=== PATIENT | female | born 1970 ===

== ENCOUNTER 2016-10-23 21:04 | Inpatient (IN) ==
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
[2016-10-23] MEDS ORDERED: ONDANSETRON 4 MG/2 ML VIAL IV STA (21:44)
[2016-10-23] MEDS ORDERED: METOCLOPRAMIDE 10 MG/2 ML VIAL IV STA (21:44)
[2016-10-23 22:01] LABS: Basophils % 0.2 % (0.0-0.8); Hematocrit 27.5 VOL% (35.7-47.0); Immature Granulocytes % 0.6 %; Immature Granulocytes Absolute 0.14 #; Lymphocytes # 0.5 10*3/uL (1.4-4.0); Lymphocytes % 2.3 % (21.3-54.2); Mean Corpuscular HGB Conc 36.4 GM/DL (32-36); Mean Corpuscular Hemoglobin 32 PG (27-34); Mean Platelet Volume 11.8 FL (9.6-12.0); Monocytes # 1.5 10*3/uL (0.11-0.8); NRBC # 0.02 10*3/uL; Neutrophils # 19.5 10*3/uL (1.4-7.4); Neutrophils % 89.9 % (38.7-73.9); Red Blood Count 3.16 MC/CUMM (3.8-5.5); Red Cell Distribution Width 12.1 % (9.3-17.3); White Blood Count 21.7 T/CUMM (4-12)
[2016-10-23 22:06] LABS: Platelet Count 72 T/CUMM (130-400)
[2016-10-23] MEDS ORDERED: ONDANSETRON 4 MG/2 ML VIAL ONE (22:08)
[2016-10-23] MEDS ORDERED: METOCLOPRAMIDE 10 MG/2 ML VIAL ONE (22:08)
[2016-10-23 22:17] LABS: PT Patient Result 10.7 SECS
[2016-10-23 22:31] LABS: Alanine Aminotransferase 28 U/L (13-56); Alkaline Phosphatase 111 U/L (45-117); Aspartate Amino Transferase 36 U/L (0-37); Blood Urea Nitrogen 68 MG/DL (7-18); Calcium 6.8 MG/DL (8.5-10.1); Glucose 343 MG/DL (74-106); Osmolality,Calculated 291.9 MOS/KG (273-304); Potassium 2.9 MMOL/L (3.5-5.1); Sodium 129 MMOL/L (136-145)
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
[2016-10-23] MEDS ORDERED: GLUCAGON 1 MG VIAL IM PRN (23:27)
[2016-10-23] MEDS ORDERED: DEXTROSE 50% 25 GM/50 ML SYRINGE IV PRN (23:27)
[2016-10-24] MEDS ORDERED: POTASSIUM CHLORIDE RIDER 20 MEQ in PREMIX 1 EACH IV ONE (00:48)
[2016-10-24] MEDS: ACETAMINOPHEN 325 MG TABLET PO PRN ×2 (01:25→09:55)
[2016-10-24] MEDS: POTASSIUM CHLORIDE RIDER 10 MEQ in PREMIX 1 EACH IV PRN ×5 (01:26→05:47)
[2016-10-24] MEDS: PIPERACILLIN/TAZOBACTAM 3,375 MG in SODIUM CHLORIDE 0.9% 100 ML IV SCH ×2 (01:26→13:00)
[2016-10-24] MEDS: POTASSIUM CHLORIDE RIDER 10 MEQ in PREMIX 1 EACH IV SCH (02:19)
[2016-10-24 03:38] LABS: Giant Platelets Few; Lymphocytes 4 % (20-55); Platelet Estimate Decreased; Segmented Neutrophils 93 % (50-85); Total Cells Counted 100
[2016-10-24] MEDS ORDERED: PIPERACILLIN/TAZOBACTAM 2,250 MG in SODIUM CHLORIDE 0.9% 100 ML IV SCH (05:00)
[2016-10-24 05:46] LABS: Basophils % 0.1 % (0.0-0.8); Hematocrit 25.6 VOL% (35.7-47.0); Hemoglobin 9.2 GM/DL (12.0-16.0); Lymphocytes # 0.6 10*3/uL (1.4-4.0); Mean Corpuscular HGB Conc 35.9 GM/DL (32-36); Mean Corpuscular Hemoglobin 31 PG (27-34); Mean Corpuscular Volume 87.4 FL (87-102); Mean Platelet Volume 11.9 FL (9.6-12.0); Monocytes % 9.6 % (1.7-12.7); Neutrophils # 17.7 10*3/uL (1.4-7.4); Neutrophils % 86.3 % (38.7-73.9); Red Blood Count 2.93 MC/CUMM (3.8-5.5); Red Cell Distribution Width 12.2 % (9.3-17.3); White Blood Count 20.6 T/CUMM (4-12)
[2016-10-24 05:48] LABS: Platelet Count 70 T/CUMM (130-400)
[2016-10-24 06:16] LABS: Albumin 1.7 G/DL (3.4-5.0); Bilirubin,Total 1.2 MG/DL (0.2-1.0); Calcium 6.6 MG/DL (8.5-10.1); Osmolality,Calculated 288.1 MOS/KG (273-304); Potassium 2.9 MMOL/L (3.5-5.1); Total Protein 5.3 G/DL (6.4-8.3)
[2016-10-24 06:30] LABS: Band Neutrophils 5 % (0-10); Lymphocytes 6 % (20-55); Platelet Estimate Decreased; Segmented Neutrophils 83 % (50-85); Total Cells Counted 100
[2016-10-24 06:31] LABS: Giant Platelets Few; Hypochromasia Slight
--- NOTE | 2016-10-24 07:04 | XRay Report ---
Exam: XR chest 1V portable Date: 10/23/2016 11:52 PM Indication: Cough shortness of breath Comparison: 10/23/2016 6:11 PM Technical: AP Findings: Cardiomegaly is present. A right-sided dialysis catheter is present. No obvious pneumothorax. Mid inspiratory chest was obtained. A few reticular nodular densities in the perihilar regions. Tiny effusion present left base Impression: 1. Cardiomegaly with tiny effusion 2. Stable position a right IJ dialysis catheter. 3. Poor inspiratory effort PROCEDURE INTERPRETED AT [facility] DEPARTMENT OF RADIOLOGY Final Report Signed by: Dr. Hussain Hayes
--- NOTE | 2016-10-24 08:06 | CT Report ---
Exam:CT chest wo con Date:10/24/2016 628 AM Indication: Sepsis unknown fever source, dialysis patient with a tunneled right catheter present. Comparison: None Technical: Images were obtained from the thoracic inlet through the lung bases without use of intravenous contrast. Axial sagittal and coronal imaging was available for review. Dose reduction was performed with decreasing kv and mA and automated exposure Total DLP: 1854.3 mGy*cm Findings: The thyroid gland, trachea and esophagus are unremarkable. The anterior middle and posterior mediastinum are demonstrated with small tiny nodes less than 1 cm. No supraclavicular axillary nodes present. A right IJ tunneled dialysis catheter is present with distal tip in the superior vena cava right atrial junction. The heart is mildly prominent. The pulmonary arteries cannot be evaluated without contrast.. ASVD is present in the aorta. The lungs are clear without infiltrates or effusions. The examination reveals a small nodule in the right chest measuring approximately 5 mm image slice #60 along the periphery. No other abnormalities are clearly seen. The bony structures are unremarkable. Impression: 1. Stable appearance of dialysis catheter 2. Small pulmonary nodule measuring approximately 5 mm in the right lateral chest 2 small to characterize or biopsy. One year follow-up of this finding is recommended Exam: CT abdomen pelvis wo con Date: 10/24/2016 628 AM Comparison: None Indication: Sepsis unknown source of fever Total DLP: As above mGy*cm Technical: No oral contrast was administered. Images were obtained from the lung bases to the iliac crest continuation through the pelvis without intravenous or oral contrast with axial sagittal coronal imaging available for review. Dose reduction was performed with decreasing kv and mA and automated exposure Findings: Liver and Spleen: Unremarkable Gallbladder and Pancreas: Multiple laminated gallstones are present in the gallbladder. The pancreas otherwise intact. Adrenals: Unremarkable Kidneys: No obvious obstructive uropathy or mass lesions present. No defined stones. Stomach: Incomplete distended with air-fluid and debris Retroperitoneum: No enlarged lymph nodes. Aorta and IVC: No obvious aneurysm aorta vessels and IVC are unremarkable. Bowel and Mesentery: There is no evidence for bowel obstruction. Small fat-containing periumbilical hernia is present. Pelvis: Bladder: Incompletely distended without contrast Fluid: No free fluid identified. Lymph nodes: No enlarged lymph nodes. Pelvic organs: Unremarkable Osseous structures: Degenerative change present thoracolumbar spine with facet arthropathy. Impression: 1. Cholelithiasis with multiple gallstones present. 2. No obvious free fluid or abscess collection otherwise noted within the abdomen or pelvis. PROCEDURE INTERPRETED AT [facility] DEPARTMENT OF RADIOLOGY Final Report Signed by: Dr. Hussain Hayes
[2016-10-24] MEDS: CALCIUM ACETATE 667 MG CAPSULE PO SCH ×3 (09:55→18:54)
[2016-10-24] MEDS: INSULIN LISPRO 100 UNIT/ML SUBCUT SCH ×3 (09:56→22:45)
[2016-10-24] MEDS: INSULIN NPH 100 UNIT/ML SUBCUT SCH ×2 (09:56→18:45)
--- NOTE | 2016-10-24 12:12 | Hospitalist Progress Note ---
Assessment and Plan (1) Rhabdomyolysis Status: Acute Assessment and plan: Impression: 1. Muscle pain with elevated CK. I suspect she has rhabdomyolysis. Etiology of this is not clear 2. Diarrhea with recent antibiotic use. Need to rule out infectious cause such as C. difficile colitis 3. Type II DM 4. End-stage renal disease, likely due to #3 5. Hypertension Plan: Stool studies have been obtained for C. difficile. Recheck serum CK. Cultures have been obtained to rule out sepsis/bacteremia. Continue home medications and routine dialysis under the direction of nephrology. This note was completed using [employer] voice recognition software. There may be suction roller errors as a result. Current Visit: Yes Qualifiers: Rhabdomyolysis type: non-traumatic Qualified Code(s): M62.82 - Rhabdomyolysis Hospitalist: Subjective Interval history: Follow-up end-stage renal disease, myalgias, fever, type II DM, and hypertension. The patient reports a 5 year history of hypertension and type II DM. She has been on dialysis since February of this year. She is not aware of any heart disease. She denies any liver disease. For the past week or so, she has had myalgias, mostly confined to the shoulder girdle. She has been going to dialysis on a regular basis. She developed some loose stools about 3 or 4 days ago. She reports frequent watery loose stools. She had a round of antibiotics about 6 weeks ago. She has had a subjective fever at home, and was noted to be febrile when she went to dialysis yesterday. At that time, her temperature was 102. Initial lab data were notable for serum CK of greater than 1000. White count was greater than 20,000. Exam - Constitutional Vitals: Period Temp Pulse Resp BP Sys/Peña Pulse Ox Last 24 Hr 97.7 F-100.0 F 81-102 16-22 116-135/53-99 92-99 Vital signs are noted above. Heart is regular with distant tones. I do not hear murmur. She is moving air fairly well bilaterally. Abdomen is obese and soft and not particularly tender. Shoulder musculature is tender to palpation bilaterally. She is able to lift her arms and legs off the bed, but reports that lifting the arms off of the bed exacerbates her shoulder pain. There is no joint effusion or rash. She is awake and alert Results - Labs CBC & BMP: 10/24/16 04:52 10/24/16 04:52 Lab Results: I have reviewed the past 24 hour labs Quality Measures - VTE Contraindication to Pharmacological VTE Prophylaxis: Coagulopathy
[2016-10-24] MEDS ORDERED: POTASSIUM CHLORIDE 20 MEQ TABLET PO ONE ×2 (12:17→21:30)
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
[2016-10-24] MEDS: CARVEDILOL 12.5 MG TABLET PO SCH ×2 (18:28→21:52)
[2016-10-24] MEDS: ONDANSETRON 4 MG/2 ML VIAL IV PRN (18:53)
[2016-10-24] MEDS: CALCITRIOL 0.25 MCG CAPSULE PO SCH (21:51)
[2016-10-24] MEDS: VALSARTAN 160 MG TABLET PO SCH (21:52)
[2016-10-25] MEDS: PIPERACILLIN/TAZOBACTAM 3,375 MG in SODIUM CHLORIDE 0.9% 100 ML IV SCH ×2 (02:00→17:03)
[2016-10-25 05:37] LABS: Basophils % 0.2 % (0.0-0.8); Eosinophils % 0.1 % (0.00-10.9); Hematocrit 25.9 VOL% (35.7-47.0); Hemoglobin 9.1 GM/DL (12.0-16.0); Immature Granulocytes % 1.7 %; Immature Granulocytes Absolute 0.29 #; Lymphocytes # 0.6 10*3/uL (1.4-4.0); Lymphocytes % 3.5 % (21.3-54.2); Mean Corpuscular HGB Conc 35.1 GM/DL (32-36); Mean Corpuscular Hemoglobin 31 PG (27-34); Mean Corpuscular Volume 88.4 FL (87-102); Mean Platelet Volume 11.9 FL (9.6-12.0); Monocytes # 2.2 10*3/uL (0.11-0.8); Monocytes % 12.7 % (1.7-12.7); Neutrophils % 81.8 % (38.7-73.9); Red Blood Count 2.93 MC/CUMM (3.8-5.5); Red Cell Distribution Width 12.4 % (9.3-17.3); White Blood Count 17.1 T/CUMM (4-12)
[2016-10-25 05:47] LABS: Platelet Count 81 T/CUMM (130-400)
[2016-10-25 06:04] LABS: Band Neutrophils 5 % (0-10); Hypochromasia Slight; Lymphocytes 4 % (20-55); Segmented Neutrophils 82 % (50-85); Total Cells Counted 100
[2016-10-25 06:05] LABS: Microcytosis Slight; Platelet Estimate Decreased
[2016-10-25 06:10] LABS: Calcium 6.7 MG/DL (8.5-10.1); Osmolality,Calculated 285.2 MOS/KG (273-304)
[2016-10-25] MEDS: POTASSIUM CHLORIDE RIDER 10 MEQ in PREMIX 1 EACH IV PRN ×5 (06:47→14:25)
--- NOTE | 2016-10-25 07:39 | Hospitalist Progress Note ---
Assessment and Plan (1) Diabetes type 2, uncontrolled Status: Chronic Assessment and plan: Marked increase in body mass index with very poor control of blood sugars. Elevated urine protein to creatinine ratio with features consistent with diabetic nephropathy. Current Visit: No Qualifiers: Diabetes mellitus complication status: with kidney complications Diabetes mellitus complication detail: with chronic kidney disease Chronic kidney disease stage: on chronic dialysis (2) ESRD (end stage renal disease) on dialysis Problem details: Stable for d/c today. F/U outpt HD unit [place]. Status: Chronic Assessment and plan: Initiation of hemodialysis due to refractory volume overload February 2016 Current Visit: No (3) Pulmonary hypertension Status: Chronic Assessment and plan: By report sleep study shows only mild obstructive apnea. Current Visit: No Hospitalist: Subjective Interval history: 46-year-old female initially admitted to the hospital in December 2015 with volume overload and renal dysfunction. She was a diabetic for only about 4 years and had only moderate proteinuria as measured in December. Her echocardiogram had shown normal LV performance with an mean aortic valve gradient of 10 mmHg and a right ventricular systolic pressure of 55-60 mmHg. She had been scheduled in January for elective access construction however had presented with severe volume expansion. On that occasion she demonstrated a urine protein to creatinine ratio of 9.3 associated with other features consistent with nephrotic syndrome. She was admitted to the hospital where she was evaluated for sleep apnea with findings of mild obstructive apnea and a temporary catheter was placed with initiation of dialysis in February. She presented on this occasion with complaints of fever generalized myalgias and vomiting. She reports no new medication exposures. Her admitting laboratory demonstrated thrombocytopenia leukocytosis hyponatremia hypokalemia and hyperglycemia. Her initial creatinine kinase was 1227 falling to 521 within 24 hours. During this interval her AST level did not change. Her thrombocytopenia has persisted. This morning she continues to have complaints of weakness primarily in the shoulder girdle. Her vital signs were stable overnight. A preliminary phone report suggests a gram-positive cocci in her bloodstream on 1 of 2 specimens. Exam - Constitutional Vitals: Period Temp Pulse Resp BP Sys/Peña Pulse Ox Last 24 Hr 96.8 F-99.7 F 76-99 18-20 115-137/53-67 95-99 General appearance: over weight - Respiratory Respiratory exam: Present: clear to auscultation bilaterally. Absent: rales, rhonchi, wheezes - Cardiovascular Cardiovascular exam: Present: regular rate and rhythm, systolic murmur (1/6 to 2 /6 aortic sclerotic murmur), other (Excellent flow in the left arm dialysis access device) - GI/Abdominal GI/Abdominal exam: Present: normal bowel sounds. Absent: ascites, organomegaly - Extremities Exam Extremities exam: Absent: edema - Neurological Exam Neurological exam: Present: alert, oriented X3 Results - Labs CBC & BMP: 10/25/16 05:09 10/25/16 05:09 Quality Measures - VTE Contraindication to Pharmacological VTE Prophylaxis: Coagulopathy
[2016-10-25] MEDS: CARVEDILOL 12.5 MG TABLET PO SCH ×2 (08:19→21:31)
[2016-10-25] MEDS: CALCITRIOL 0.25 MCG CAPSULE PO SCH (08:19)
[2016-10-25] MEDS: CALCIUM ACETATE 667 MG CAPSULE PO SCH ×3 (08:19→21:28)
[2016-10-25] MEDS: INSULIN NPH 100 UNIT/ML SUBCUT SCH ×2 (09:03→17:01)
[2016-10-25] MEDS: INSULIN LISPRO 100 UNIT/ML SUBCUT SCH ×4 (09:03→21:36)
[2016-10-25] MEDS: VALSARTAN 160 MG TABLET PO SCH (11:54)
[2016-10-25] MEDS ORDERED: SODIUM CHLORIDE 0.9% 500 ML IV ONE (13:04)
[2016-10-25] MEDS ORDERED: ZINC OXIDE PASTE 113 GM TUBE TOP PRN (17:05)
--- NOTE | 2016-10-25 19:44 | Nephrology Progress Note ---
Nephrology - PN: Subj Interval history: Patient is resting. She mentions that she is feeling a little bit better today. No shortness of breath or chest pain. She tolerated dialysis on yesterday. Exam (PN)-Nephrology - Vital Signs Vital signs: Period Temp Pulse Resp BP Sys/Peña Pulse Ox Last 24 Hr 96.8 F-99.7 F 66-99 18-20 93-122/40-56 95-98 - General Appearance General appearance: well-developed, well-nourished EENT: ATNC Neck: supple Respiratory: clear Cardiology: no edema, regular rate, regular rhythm Gastrointestinal: normoactive bowel sounds, no tenderness Integumentary: no rash Neurologic: alert and oriented x3 Psychiatric: mood/affect appropriate, cooperative - Lab 10/25/16 05:09 10/25/16 18:45 Most recent lab results Calcium 6.7 MG/DL (8.5-10.1) L 10/25/16 05:09 Magnesium 1.9 MG/DL (1.8-2.4) 10/23/16 21:44 Assessment and Plan (1) HTN (hypertension) Status: Chronic Current Visit: Yes Qualifiers: Hypertension type: essential hypertension Qualified Code(s): I10 - Essential (primary) hypertension (2) Diabetes type 2, uncontrolled Status: Chronic Current Visit: No Qualifiers: Diabetes mellitus complication status: with kidney complications Diabetes mellitus complication detail: with chronic kidney disease Chronic kidney disease stage: on chronic dialysis (3) Hypertension Status: Chronic Current Visit: No Qualifiers: Hypertension type: renovascular hypertension Qualified Code(s): I15.0 - Renovascular hypertension (4) ESRD (end stage renal disease) Status: Chronic Assessment and plan: Hemodialysis as scheduled. Current Visit: No (5) Hypokalemia Status: Acute Current Visit: Yes
[2016-10-26] MEDS: PIPERACILLIN/TAZOBACTAM 3,375 MG in SODIUM CHLORIDE 0.9% 100 ML IV SCH ×2 (02:40→14:41)
[2016-10-26 05:57] LABS: Albumin 1.2 G/DL (3.4-5.0); Bilirubin,Direct 0.34 MG/DL (0.0-0.20); Bilirubin,Indirect 0.5 MG/DL (0.0-1.0); Bilirubin,Total 0.8 MG/DL (0.2-1.0); Total Protein 4.9 G/DL (6.4-8.3)
--- NOTE | 2016-10-26 07:31 | Hospitalist Progress Note ---
Assessment and Plan (1) Diabetes type 2, uncontrolled Status: Chronic Assessment and plan: Marked increase in body mass index with very poor control of blood sugars. Elevated urine protein to creatinine ratio with features consistent with diabetic nephropathy. Current Visit: No Qualifiers: Diabetes mellitus complication status: with kidney complications Diabetes mellitus complication detail: with chronic kidney disease Chronic kidney disease stage: on chronic dialysis (2) ESRD (end stage renal disease) on dialysis Problem details: Stable for d/c today. F/U outpt HD unit [place]. Status: Chronic Assessment and plan: Initiation of hemodialysis due to refractory volume overload February 2016 Current Visit: No (3) Pulmonary hypertension Status: Chronic Assessment and plan: By report sleep study shows only mild obstructive apnea. Current Visit: No (4) Fever Status: Acute Assessment and plan: Associated myalgias with elevated total CPK, thrombocytopenia, leukocytosis, and mildly elevated total bilirubin. Single blood culture reported positive for gram-positive cocci. Current Visit: Yes Hospitalist: Subjective Interval history: 46-year-old female who had reported only a 4 year history of diabetes mellitus at presentation in December 2015 with volume overload and renal dysfunction. Echocardiographically normal left ventricular systolic performance was present with a mean aortic valve gradient of 10 mmHg and a right ventricular systolic pressure of 55-60 mmHg at that time. She progressed rapidly and was admitted in January once again with volume overload. Her urine protein to creatinine ratio increased to 9.3. Temporary access was placed and dialysis was initiated in February. She has had placement of a access which has not been utilized. She has been evaluated for sleep apnea and only mild obstructive apnea was identified. She was admitted on this occasion with a febrile illness with general myalgias and ball vomit she had a fever. Her laboratory work showed thrombocytopenia leukocytosis with hyponatremia hypokalemia and marked hyperglycemia. Her serum creatinine kinase was mildly elevated following rapidly after hospitalization. There was no increase in her AST level. She has 1 of 2 blood cultures reported as positive for gram-positive cocci. An abdominal CT scan demonstrated gallstones but follow-up liver test today demonstrates resolution of the mildly elevated total bilirubin. Blood pressure has been relatively low and she has received fluid boluses by report. She is afebrile. She continues to complain of marked pain with weakness particularly in the upper extremities and shoulder area. Due to her blood pressure readings with the diet this dialysis we will go ahead and withhold her hydralazine continuing her valsartan and Coreg. We will also augment her insulin dose based on persistent elevation of her capillary blood glucose levels. Exam - Constitutional Vitals: Period Temp Pulse Resp BP Sys/Peña Pulse Ox Last 24 Hr 97 F-99 F 66-76 16-20 92-104/40-59 96-99 General appearance: morbidly obese - Respiratory Respiratory exam: Present: clear to auscultation bilaterally - Cardiovascular Cardiovascular exam: Present: regular rate and rhythm, systolic murmur (1/6 basilar systolic murmur) - GI/Abdominal GI/Abdominal exam: Present: normal bowel sounds. Absent: ascites, tenderness - Extremities Exam Extremities exam: Present: other (No skin rashes observed). Absent: edema - Neurological Exam Neurological exam: Present: alert, oriented X3, other (Muscle strength appears to be intact movement is limited by pain more so than weakness) Results - Labs CBC & BMP: 10/25/16 05:09 10/25/16 18:45 Labs: Total bilirubin 0.8 Albumin 1.2 Quality Measures - VTE Contraindication to Pharmacological VTE Prophylaxis: Coagulopathy
[2016-10-26] MEDS: INSULIN LISPRO 100 UNIT/ML SUBCUT SCH ×4 (08:47→22:11)
[2016-10-26] MEDS: INSULIN NPH 100 UNIT/ML SUBCUT SCH ×2 (08:48→16:58)
[2016-10-26] MEDS: CALCIUM ACETATE 667 MG CAPSULE PO SCH ×3 (08:49→17:01)
[2016-10-26] MEDS: VALSARTAN 160 MG TABLET PO SCH (08:49)
[2016-10-26] MEDS: CALCITRIOL 0.25 MCG CAPSULE PO SCH (08:50)
[2016-10-26] MEDS: CARVEDILOL 12.5 MG TABLET PO SCH ×2 (08:50→22:04)
[2016-10-26] MEDS: CYCLOBENZAPRINE 10 MG TABLET PO PRN (08:51)
[2016-10-26] MEDS ORDERED: VANCOMYCIN INJ 1,500 MG in SODIUM CHLORIDE 0.9% 500 ML IV ONE (11:00)
--- NOTE | 2016-10-26 11:56 | Nephrology Progress Note ---
Nephrology - PN: Subj Interval history: 10/25/2016. Patient is resting. she mentions that she is feeling a little bit better today. No shortness of breath or chest pain. She tolerated dialysis on yesterday. 10/26/2016. Patient complains of back pain. She is not getting much relief with [place]. No fevers or chills. Patient did get a gram of vancomycin yesterday. Blood culture was positive in 1 bottle. At this time we will add Flexeril 5 mg twice daily. We will also give a Lidoderm patch. Exam (PN)-Nephrology - Vital Signs Vital signs: Period Temp Pulse Resp BP Sys/Peña Pulse Ox Last 24 Hr 97 F-98.4 F 66-76 16-20 92-121/40-59 96-99 - General Appearance General appearance: well-developed, well-nourished, fatigue Neck: supple Respiratory: clear Cardiology: no edema, regular rate, regular rhythm Gastrointestinal: normoactive bowel sounds, no tenderness Neurologic: alert and oriented x3 Musculoskeletal: no clubbing Psychiatric: mood/affect appropriate - Lab 10/25/16 05:09 10/25/16 18:45 Most recent lab results Calcium 6.7 MG/DL (8.5-10.1) L 10/25/16 05:09 Magnesium 1.9 MG/DL (1.8-2.4) 10/23/16 21:44 Assessment and Plan (1) HTN (hypertension) Status: Chronic Current Visit: Yes Qualifiers: Hypertension type: essential hypertension Qualified Code(s): I10 - Essential (primary) hypertension (2) Diabetes type 2, uncontrolled Status: Chronic Current Visit: No Qualifiers: Diabetes mellitus complication status: with kidney complications Diabetes mellitus complication detail: with chronic kidney disease Chronic kidney disease stage: on chronic dialysis (3) Hypertension Status: Chronic Current Visit: No Qualifiers: Hypertension type: renovascular hypertension Qualified Code(s): I15.0 - Renovascular hypertension (4) ESRD (end stage renal disease) Status: Chronic Assessment and plan: Hemodialysis as scheduled. Current Visit: No (5) Hypokalemia Status: Acute Current Visit: Yes (6) Back pain Status: Acute Assessment and plan: We will add Flexeril for musculoskeletal pain. 5 mg twice daily. Also had a Lidoderm patch. Current Visit: Yes
[2016-10-26] MEDS: LIDOCAINE 5% PATCH TRANSDERM SCH (12:43)
[2016-10-26] MEDS ORDERED: ZINC OXIDE PASTE 113 GM TUBE TOP PRN (16:37)
[2016-10-27] MEDS: PIPERACILLIN/TAZOBACTAM 3,375 MG in SODIUM CHLORIDE 0.9% 100 ML IV SCH (01:58)
[2016-10-27 04:55] LABS: Basophils % 0.2 % (0.0-0.8); Eosinophils # 0.1 10*3/uL (0.0-0.87); Eosinophils % 0.5 % (0.00-10.9); Hematocrit 26.9 VOL% (35.7-47.0); Hemoglobin 9.3 GM/DL (12.0-16.0); Immature Granulocytes Absolute 0.58 #; Lymphocytes % 5.3 % (21.3-54.2); Mean Corpuscular HGB Conc 34.6 GM/DL (32-36); Mean Corpuscular Hemoglobin 31 PG (27-34); Mean Corpuscular Volume 89.7 FL (87-102); Mean Platelet Volume 11.1 FL (9.6-12.0); Monocytes # 1.9 10*3/uL (0.11-0.8); Monocytes % 9.9 % (1.7-12.7); Neutrophils # 15.4 10*3/uL (1.4-7.4); Neutrophils % 81.1 % (38.7-73.9); Platelet Count 162 T/CUMM (130-400); Red Cell Distribution Width 12.1 % (9.3-17.3)
[2016-10-27 05:18] LABS: Band Neutrophils 1 % (0-10); Eosinophils 1 % (0-10); Giant Platelets Few; Hypochromasia 1+; Lymphocytes 8 % (20-55); Microcytosis Slight; Platelet Estimate Normal; Segmented Neutrophils 81 % (50-85); Total Cells Counted 100
[2016-10-27 05:19] LABS: Calcium 7.1 MG/DL (8.5-10.1); Osmolality,Calculated 281.9 MOS/KG (273-304); Potassium 3.7 MMOL/L (3.5-5.1)
[2016-10-27] MEDS ORDERED: ALTEPLASE 2 MG VIAL IV PRN (08:32)
[2016-10-27] MEDS ORDERED: HEPARIN 10,000 UNIT/10 ML VIAL IV SCH (09:00)
[2016-10-27] MEDS: CALCITRIOL 0.25 MCG CAPSULE PO SCH (09:26)
[2016-10-27] MEDS: INSULIN NPH 100 UNIT/ML SUBCUT SCH ×2 (09:27→17:55)
[2016-10-27] MEDS: CALCIUM ACETATE 667 MG CAPSULE PO SCH ×3 (09:27→18:10)
[2016-10-27] MEDS: INSULIN LISPRO 100 UNIT/ML SUBCUT SCH ×4 (09:27→23:31)
[2016-10-27] MEDS: VALSARTAN 160 MG TABLET PO SCH (09:28)
[2016-10-27] MEDS: LIDOCAINE 5% PATCH TRANSDERM SCH (09:28)
[2016-10-27] MEDS: CARVEDILOL 12.5 MG TABLET PO SCH (09:28)
--- NOTE | 2016-10-27 11:28 | Dialysis Note ---
Dialysis Note - Dialysis Note Patient seen on dialysis she is tolerating the procedure. Dialysis catheters are sluggish and striving to run at 225. Patient has positive blood cultures and MRSA at this time we will dialyze today we will give 1.5 g of vancomycin. Plan asked surgery to help us remove the dialysis catheter. Blood pressure is 89/52. Cardiovascular regular rate. Lungs clear to auscultation. Abdomen is soft.
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
[2016-10-27] MEDS ORDERED: VANCOMYCIN INJ 1,000 MG in SODIUM CHLORIDE 0.9% 250 ML IV PRN (14:41)
[2016-10-27] MEDS ORDERED: VANCOMYCIN INJ 1,750 MG in SODIUM CHLORIDE 0.9% 500 ML IV ONE (15:00)
--- NOTE | 2016-10-27 16:37 | Hospitalist Progress Note ---
Assessment and Plan (1) MRSA (methicillin resistant Staphylococcus aureus) septicemia Status: Acute Assessment and plan: Dr. Ford consulted, agree with vancomycin, echocardiogram if negative Dr. Palm would like to do a CADY. Will ask Dr. Caopne to remove catheter. Will wait for 2 days and replace catheter in a different site. WBC 19, repeat blood cultures Current Visit: Yes (2) Diabetes type 2, uncontrolled Status: Chronic Assessment and plan: Blood sugars were low dysphonia. Patient not eating well. We will decrease insulin at night Current Visit: No Qualifiers: Diabetes mellitus complication status: with kidney complications Diabetes mellitus complication detail: with chronic kidney disease Chronic kidney disease stage: on chronic dialysis (3) Hypertension Status: Chronic Assessment and plan: Hold Diovan and coreg due to low blood pressure. ordered lactic acid per order set Current Visit: No Qualifiers: Hypertension type: renovascular hypertension Qualified Code(s): I15.0 - Renovascular hypertension (4) Pulmonary hypertension Status: Chronic Assessment and plan: Echocardiogram pending, will ask Dr. Atkins to see Current Visit: No (5) Unspecified sleep apnea Status: Acute Assessment and plan: Consult Dr. Atkins to see Current Visit: No (6) ESRD (end stage renal disease) on dialysis Problem details: Stable for d/c today. F/U outpt HD unit [facility]. Status: Chronic Assessment and plan: Continue dialysis, current tunnel cath will need to be removed and a new one placed in a couple of days. Graft in left arm not mature. D/w Dr Bender Current Visit: No Hospitalist: Subjective Interval history: Saw patient while she was in dialysis. 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 I have spoken with Dr. Bender and he would like to remove the catheter due to the MRSA growing in her blood. We will wait a couple of days before replacing a new catheter for dialysis. Her graft in her left arm is not ready for use. Exam - Constitutional Vitals: Period Temp Pulse Resp BP Sys/Peña Pulse Ox Last 24 Hr 96.2 F-97.0 F 69-75 16-18 85-118/44-54 90-99 Exam: Okay Heart Rate-[RRR] Lungs-[CTAB but diminished] GI-[+bs soft, NT] Ext-[no edema] Neuro [Motor 5/5], [alert and oriented times 3] psych [normal mood and affect] General [no acute distress] Thrill in left arm graft marginal Results - Labs CBC & BMP: 10/27/16 03:50 10/27/16 03:50 Lab Results: I have reviewed the past 24 hour labs Labs: Patient growing MRSA bacteremia, repeat blood cultures ordered, stool for C. difficile negative - Diagnostic Findings Procedure: Ultrasound: report reviewed by me (Echocardiogram done results pending, if negative Dr. Ford would like a CADY) Quality Measures - VTE Contraindication to Pharmacological VTE Prophylaxis: Coagulopathy
[2016-10-27] MEDS: ENOXAPARIN 30 MG/0.3 ML SYRINGE SUBCUT SCH (18:09)
--- NOTE | 2016-10-27 18:13 | Operative Note ---
Date of procedure: 10/27/16 Pre-op diagnosis: Infected hemodialysis catheter Post-op diagnosis: same Procedure: Pre-operative diagnosis Functional AV fistula with infected hemodialysis catheter Post-operative diagnosis same Procedures Performed Removal of tunneled hemodialysis catheter Findings Complete catheter removal with purulent drainage from the catheter tract. Tip was sent for culture. Complications None apparent Indications Functional AV fistula with infected hemodialysis catheter Description of procedure The patient was placed in the supine position in her hospital bed and the catheter in chest and neck was prepped with Betadine. Timeout was called. Local anesthetic was administered around the catheter and an elliptical skin incision was made with a scalpel. The catheter was freed up the subcutaneous tissues and the cup was . There is good incorporation with purulent drainage from the catheter tract after it was removed. The catheter was completely removed intact and the catheter site was closed with a 4-0 Monocryl suture. The pressure was held over the neck site until bleeding stopped. The catheter tip was sent for culture Postoperative plan Follow-up as needed Anesthesia: local Surgeon / Physician: Sunday Capone Estimated blood loss: minimal Specimens: other (catheter tip) Condition: stable Disposition: PACU Results - Labs CBC & BMP: 10/27/16 03:50 10/27/16 03:50 Discharge Plan - Discharge Medications No Action hydrALAZINE TAB [Apresoline Tab] 50 mg PO BID #120 tablet Dextrose 50% [D50] 25 gm IV PRN PRN #0 vial PRN Reason: Hypoglycemia with IV access Glucagon 1 mg IM PRN PRN #0 vial PRN Reason: Hypoglycemia w/o IV access Heparin Inj 5,000 unit SUBCUT Q12H vial Insulin NPH [HumuLIN N] 30 unit SUBCUT BIDAC injection Insulin Regular [HumuLIN R] See Protocol SUBCUT ACHS injection Valsartan [Diovan] 320 mg PO DAILY tablet Carvedilol [Coreg] 12.5 mg PO BID #120 tablet Calcitriol [Rocaltrol] 0.25 mcg PO DAILY capsule Calcium Acetate [Phoslo] 1,334 mg PO TID W/MEALS capsule Lactulose Liquid [Chronulac] 20 gm PO Q4H PRN #0 udcup PRN Reason: Constipation - Follow Up or Referral - Forms/Instructions
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
--- NOTE | 2016-10-27 20:16 | Event Note ---
Echo showed no large valvular vegetations. ID asked for CADY to rule out endocarditis. Discussed risks and benefits with the patient. She agrees to proceed. We will plan for CADY, with anesthesia, tomorrow a.m. Keep n.p.o. after midnight.
--- NOTE | 2016-10-27 20:31 | ECHO Report ---
Sylvia Paul 10/27/2016 Exam Date: 14:10 Referring Physician: Heather Rees Technologist: LILLY Age: 46 Ht (in): 64 Wt (lb): 250 FExam Location: [facility] Gender: Echo [id number]: MRSA septicemia, Fever, Sepsis, MorbIndications:id (severe) obesity due to excess calories, End stage renal disease, Chronic kidney disease, stage 4 (severe), IDDM, Essential (primary) hypertension BP: 107 / 52 HR: 74 SinusRhythm: Technical Quality: IMPRESSIONS Normal left ventricular size. Mild concentric left ventricular hypertrophy. Left ventricular ejection fraction is estimated at 60 %. Normal diastolic function. Mild biatrial enlargement. Trace to mild mitral regurgitation. Mild pulmonary hypertension. Trace posterior pericardial effusion. No large valvular vegetations are seen. MEASUREMENTS (Male / Female) Normal Values 2D ECHO LV Diastolic Diameter PLAX 5.6 cm 4.2 - 5.9 / 3.9 - 5.3 cm LV Systolic Diameter PLAX 3.8 cm LV Fractional Shortening PLAX 32.7 % IVS Diastolic Thickness 1.0 cm 0.6 - 1.0 / 0.6 - 0.9 cm LVPW Diastolic Thickness 1.0 cm 0.6 - 1.0 / 0.6 - 0.9 cm RV Internal Dim ED PLAX 3.5 cm Aortic Root Diameter 3.7 cm LA Systolic Diameter LX 3.6 cm 3.0 - 4.0 / 2.7 - 3.8 cm DOPPLER TR Peak Velocity 289.0 cm/s TR Peak Gradient 33.4 mmHg FINDINGS Left Ventricle Normal left ventricular size. Mild concentric left ventricular hypertrophy. Left ventricular ejection fraction is estimated at 60 %. Normal diastolic function. Right Ventricle The right ventricle is normal in size and function. Right Atrium Mild atrial enlargement in apical view (elongated RA). Left Atrium Mild atrial enlargement in apical view (elongated LA). Mitral Valve Morphologically normal mitral valve. Trace to mild mitral regurgitation. Aortic Valve Morphologically normal aortic valve without significant sclerosis or stenosis. There is no aortic regurgitation. Tricuspid Valve Morphologically normal tricuspid valve. Mild tricuspid valve regurgitation. Tricuspid regurgitation velocities suggest a PAP of 43 mmHg. Pulmonic Valve Morphologically normal pulmonic valve without significant stenosis. There is no pulmonic regurgitation. Pericardium Trace posterior pericardial effusion. Aorta Normal ascending aorta dimension. Diego Cervantes (Electronically Signed) 27 October 2016 Final Date: 20:12
[2016-10-28 04:21] LABS: Basophils % 0.2 % (0.0-0.8); Eosinophils # 0.2 10*3/uL (0.0-0.87); Eosinophils % 0.7 % (0.00-10.9); Hematocrit 26.7 VOL% (35.7-47.0); Hemoglobin 9.5 GM/DL (12.0-16.0); Immature Granulocytes % 5.7 %; Immature Granulocytes Absolute 1.18 #; Lymphocytes # 1.2 10*3/uL (1.4-4.0); Lymphocytes % 5.8 % (21.3-54.2); Mean Corpuscular HGB Conc 35.6 GM/DL (32-36); Mean Corpuscular Hemoglobin 32 PG (27-34); Mean Corpuscular Volume 88.4 FL (87-102); Mean Platelet Volume 10.3 FL (9.6-12.0); Monocytes # 1.9 10*3/uL (0.11-0.8); Monocytes % 9.1 % (1.7-12.7); Neutrophils # 16.4 10*3/uL (1.4-7.4); Neutrophils % 78.5 % (38.7-73.9); Platelet Count 237 T/CUMM (130-400); Red Blood Count 3.02 MC/CUMM (3.8-5.5); White Blood Count 20.9 T/CUMM (4-12)
[2016-10-28 04:55] LABS: Band Neutrophils 2 % (0-10); Eosinophils 2 % (0-10); Hypochromasia 1+; Lymphocytes 5 % (20-55); Metamyelocytes 1 %; Segmented Neutrophils 83 % (50-85); Total Cells Counted 100
[2016-10-28 04:56] LABS: Microcytosis Slight
[2016-10-28 07:19] LABS: Osmolality,Calculated 273.2 MOS/KG (273-304); Potassium 4.2 MMOL/L (3.5-5.1)
--- NOTE | 2016-10-28 07:46 | History and Physical Update ---
Sedation H&P Update - History and Physical H&P was reviewed, the patient examined and there: are no changes in the patients condition since last H&P was completed. - Dictation Physical: refer to H&P completed by admitting physician - Physical Exam Mental Status: alert and oriented Heart: regular rate and rhythm Lung: clear to auscultation Abdomen: within normal limits Vitals: within normal limits - Sedation Plan for Sedation: MAC Patient Consent: Procedure disscussed with patient and patinet has consented., Risks and benefits were discussed with patient,including infection,, bleeding, injury to surrounding structures, seizure, temporary nerve, Patient understands and accepts potential risks/benefits and agrees to ASA Class: IV Airway Assessment: Class III: Soft palate, base of uvula visible
[2016-10-28] MEDS: INSULIN NPH 100 UNIT/ML SUBCUT SCH ×2 (07:57→16:29)
[2016-10-28] MEDS: INSULIN LISPRO 100 UNIT/ML SUBCUT SCH ×4 (07:57→23:17)
[2016-10-28] MEDS: CALCIUM ACETATE 667 MG CAPSULE PO SCH ×3 (07:58→17:36)
[2016-10-28] MEDS ORDERED: LIDOCAINE 2% 5 ML VIAL ONE (09:57)
[2016-10-28] MEDS ORDERED: ETOMIDATE 20 MG/10 ML VIAL IV ONE (09:57)
--- NOTE | 2016-10-28 10:24 | Event Note ---
CADY performed without complications. Findings consistent with endocarditis. She has a small mobile tricuspid valve mass, suggestive of vegetation. Mild tricuspid insufficiency. No evidence of mitral or aortic valve involvement, or abscess. Normal systolic function, no pericardial effusion or PFO. Full report to follow.
--- NOTE | 2016-10-28 10:36 | Anesthesia Post-Op ---
Anesthesia Post OP - Post Ansesthetic Evaluation Patient seen in post op: Yes Resp: within normal limits CV: within normal limits Mental: within normal limits Temp: within normal limits [id number]: within normal limits Nausea and Vomiting: within normal limits Pain: within normal limits
[2016-10-28] MEDS: VALSARTAN 160 MG TABLET PO SCH (11:14)
[2016-10-28] MEDS: LIDOCAINE 5% PATCH TRANSDERM SCH (11:14)
[2016-10-28] MEDS: CALCITRIOL 0.25 MCG CAPSULE PO SCH (11:14)
--- NOTE | 2016-10-28 11:27 | ECHO Report ---
Humberto Sylvia 10/28/2016 Exam Date: 09:29 Referring Physician: Danielle Sommer Technologist: CHASE Age: 46 Ht (in): Wt (lb): FExam Location[facility] Gender: Echo [id number]: VegPre-op Dx: Post-op Dx: BP: / HR: SinusRhythm: Technical Quality: Specimens Taken Devices Implanted Medications Complications Estimated Blood Loss Proc. Components IMPRESSIONS Normal left ventricular size, without hypertrophy, with normal systolic function. The tricuspid valve is structurally normal. There is a 10 x 7 mm, mobile, echogenic mass, attached to the atrial side of the tricuspid valve, consistent with vegetation. Trace insufficiency, no stenosis. MEASUREMENTS (Male / Female) Normal Values FINDINGS Left Ventricle Normal left ventricular size, without hypertrophy, with normal systolic function. Right Ventricle Normal right ventricular size, with normal systolic function. Right Atrium Normal right atrial size. Left Atrium Normal left atrial size. LA Appendage Normal left atrial appendage, no thrombus. IA Septum Normal interatrial septum, no evidence of PFO with agitated contrast study. Mitral Valve The mitral valve is structurally normal, trace eccentric regurgitation. Aortic Valve The aortic valve is structurally normal, no stenosis or insufficiency. Tricuspid Valve The tricuspid valve is structurally normal. There is a 10 x 7 mm, mobile, echogenic mass, attached to the atrial side of the tricuspid valve, consistent with vegetation. Trace insufficiency, no stenosis. Pulmonic Valve Structurally normal pulmonic valve, no stenosis or insufficiency. Pericardium Normal pericardium, no effusion. Aorta The descending aorta is of normal size. Diego Cervantes (Electronically Signed) 28 October 2016 Final Date: 11:26
--- NOTE | 2016-10-28 12:17 | Nephrology Progress Note ---
Nephrology - PN: Subj Interval history: 10/25/2016. Patient is resting. she mentions that she is feeling a little bit better today. No shortness of breath or chest pain. She tolerated dialysis on yesterday. 10/26/2016. Patient complains of back pain. She is not getting much relief with [place]. No fevers or chills. Patient did get a gram of vancomycin yesterday. Blood culture was positive in 1 bottle. At this time we will add Flexeril 5 mg twice daily. We will also give a Lidoderm patch. 10/28/2016. The patient tolerated dialysis on yesterday. She is now status post tunnel catheter removal. Afebrile at this time. Has received vancomycin. At this time will reassess to when we will reinsert tunnel catheter. Exam (PN)-Nephrology - Vital Signs Vital signs: Period Temp Pulse Resp BP Sys/Peña Pulse Ox Last 24 Hr 97.4 F-98.6 F 62-88 16-20 103-140/50-63 92-98 - General Appearance General appearance: well-developed, well-nourished EENT: ATNC Neck: supple Respiratory: clear Cardiology: regular rate, regular rhythm Gastrointestinal: normoactive bowel sounds, no masses Neurologic: alert and oriented x3 Musculoskeletal: no deformities Psychiatric: mood/affect appropriate, cooperative - Lab 10/28/16 04:06 10/28/16 04:06 Most recent lab results Calcium 7.0 MG/DL (8.5-10.1) L 10/28/16 04:06 Magnesium 2.0 MG/DL (1.8-2.4) 10/28/16 04:06 Assessment and Plan (1) HTN (hypertension) Status: Chronic Current Visit: Yes Qualifiers: Hypertension type: essential hypertension Qualified Code(s): I10 - Essential (primary) hypertension (2) Diabetes type 2, uncontrolled Status: Chronic Current Visit: No Qualifiers: Diabetes mellitus complication status: with kidney complications Diabetes mellitus complication detail: with chronic kidney disease Chronic kidney disease stage: on chronic dialysis (3) Hypertension Status: Chronic Current Visit: No Qualifiers: Hypertension type: renovascular hypertension Qualified Code(s): I15.0 - Renovascular hypertension (4) ESRD (end stage renal disease) Status: Chronic Assessment and plan: Hemodialysis as scheduled. Current Visit: No (5) Hypokalemia Status: Resolved Current Visit: Yes (6) Back pain Status: Acute Assessment and plan: We will add Flexeril for musculoskeletal pain. Also had a Lidoderm patch. Current Visit: Yes
--- NOTE | 2016-10-28 13:13 | Sleep Medicine Progress Note ---
Assessment and Plan (1) JOSE (obstructive sleep apnea) Status: Acute Assessment and plan: This patient has moderate to severe obstructive sleep apnea with severe O2 desaturation. We will initiate auto titration CPAP tonight. Current Visit: No (2) HTN (hypertension) Status: Chronic Current Visit: Yes Qualifiers: Hypertension type: essential hypertension Qualified Code(s): I10 - Essential (primary) hypertension (3) Diabetes type 2, uncontrolled Status: Chronic Current Visit: No Qualifiers: Diabetes mellitus complication status: with kidney complications Diabetes mellitus complication detail: with chronic kidney disease Chronic kidney disease stage: on chronic dialysis Sleep Medicine Subjective Interval history: I did find this patient sleep study result. She did have moderate obstructive sleep apnea with an AHI of 18.9. She had O2 desaturation to lows of 60% and spent over 47% of her sleep with O2 sats of less than 90%. CPAP titration was recommended but she did not follow-up for appointment because she was told that the [employer] would pay for her CPAP. She does have [employer] insurance. She has significant sleep apnea with severe O2 desaturation and needs CPAP therapy. We will go ahead and initiate auto titration CPAP while hospitalized and have social media project manager look into her insurance situation regarding coverage of CPAP. Exam (Progress Note) - Constitutional Vitals: Period Temp Pulse Resp BP Sys/Peña Pulse Ox Last 24 Hr 97.4 F-98.6 F 62-88 16-20 103-140/50-63 92-98 Exam: She is alert and responsive and sitting up on side of bed. Exam otherwise unremarkable and unchanged. Results - Labs CBC & BMP: 10/28/16 04:06 10/28/16 04:06 Lab Results: I have reviewed the past 24 hour labs
--- NOTE | 2016-10-28 15:40 | Infectious Disease Progress ---
Assessment and Plan (1) Fever Status: Acute Assessment and plan: Most likely due to the MRSA septicemia complicated by infective endocarditis. Treatment as below. Current Visit: Yes (2) MRSA (methicillin resistant Staphylococcus aureus) septicemia Status: Acute Assessment and plan: Most likely the source of the septicemia is her hemodialysis catheter. 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 Recommendations: 1. Continue vancomycin; we are targeting a more aggressive trough of 20-25 2. Repeat blood cultures again tomorrow nd then she will get a new catheter towards the end of the week. 3. Consider cardiothoracic surgery consult Discussed with Dr. Silveira Discussed with patient's at bedside Current Visit: Yes (3) Morbid obesity Status: Acute Current Visit: No (4) Diabetes type 2, uncontrolled Status: Chronic Current Visit: No Qualifiers: Diabetes mellitus complication status: with kidney complications Diabetes mellitus complication detail: with chronic kidney disease Chronic kidney disease stage: on chronic dialysis (5) ESRD (end stage renal disease) on dialysis Problem details: Stable for d/c today. F/U outpt HD unit [facility] Status: Chronic Current Visit: No (6) Hypertension Status: Chronic Current Visit: No Qualifiers: Hypertension type: renovascular hypertension Qualified Code(s): I15.0 - Renovascular hypertension Infectious Disease - PN: Subj Interval history: Patient is doing fair, still having generalized body pains with possibly little better today. Hemodialysis catheter removed yesterday. She has not had any fever. CADY was done this morning and showed tricuspid valve vegetation. Infectious Disease Exam (PN) - Constitutional Vitals: Temp Pulse Resp BP Pulse Ox 98.2 F 76 18 110/58 97 10/28/16 12:00 10/28/16 12:00 10/28/16 12:00 10/28/16 12:00 10/28/16 12:00 General appearance: no acute distress Exam: General appearance: In mild painful distress but looks less ill than yesterday - Eye Eye exam: Present: EOMI. no icterus Pupils: Present: INDRA - ENT ENT exam: no oral exudates - Respiratory Respiratory exam: vesicular BS, no crepitations or wheezes - Cardiovascular Cardiovascular exam: regular rate and rhythm, no murmurs - GI/Abdominal GI/Abdominal exam: normal bowel sounds, soft, non-tender, no organomegaly or mass - Extremities Exam Extremities exam: no edema - Skin Skin exam: no rash Results - Labs CBC & BMP: 10/28/16 04:06 10/28/16 04:06 Lab Results: I have reviewed the past 24 hour labs (Repeat blood cultures from yesterday still positive, 1 of 2 sets so far) Quality Measures - VTE Contraindication to Pharmacological VTE Prophylaxis: Coagulopathy
--- NOTE | 2016-10-28 15:57 | Hospitalist Progress Note ---
Assessment and Plan (1) MRSA (methicillin resistant Staphylococcus aureus) septicemia Status: Acute Assessment and plan: Dr. Frod consulted, cont vancomycin but trough too high, repeat blood cultures positive for gram-positive cocci. CADY showed vegetation on the right tricuspid valve. Consult Dr. Dias and Dr. Cervantes for opinion on right-sided endocarditis. Current Visit: Yes (2) Diabetes type 2, uncontrolled Status: Chronic Assessment and plan: Blood sugars better today Current Visit: No Qualifiers: Diabetes mellitus complication status: with kidney complications Diabetes mellitus complication detail: with chronic kidney disease Chronic kidney disease stage: on chronic dialysis (3) Hypertension Status: Chronic Assessment and plan: cont to hold Diovan and coreg due to low blood pressure. lactic acid only 1 Current Visit: No Qualifiers: Hypertension type: renovascular hypertension Qualified Code(s): I15.0 - Renovascular hypertension (4) Pulmonary hypertension Status: Chronic Assessment and plan: PAP of 43 on echo Current Visit: No (5) Unspecified sleep apnea Status: Acute Assessment and plan: Dr. Atkins has ordered auto titrating CPAP. pediatric social worker is looking for assistance in pain for the machine. Patient's said if he has stated he will pay for machine. Current Visit: No (6) ESRD (end stage renal disease) on dialysis Problem details: Stable for d/c today. F/U outpt HD unit [place]. Status: Chronic Assessment and plan: Continue dialysis, current tunnel cath removed yesterday by Dr. Capone. Current Visit: No (7) Endocarditis Status: Acute Assessment and plan: Blood cultures 4 positive for gram-positive cocci. Current Visit: Yes Hospitalist: Subjective Interval history: Patient's is in the room and I gave him an update. CADY did find a vegetation on the right tricuspid valve. Dr. Ford would like Dr. Dias from cardiothoracic surgery to see her. We will also has Dr. Swan to give an opinion on the right-sided endocarditis. Patient is already on antibiotics. Patient needs to be on a CPAP machine. Dr. Atkins recommended auto titrating CPAP. pediatric social worker is been helping us getting assistance on pain for a CPAP machine. Exam - Constitutional Vitals: Period Temp Pulse Resp BP Sys/Peña Pulse Ox Last 24 Hr 97.4 F-98.6 F 62-88 16-20 103-140/50-63 92-98 Exam: Okay Heart Rate-[RRR] Lungs-[CTAB but diminished] GI-[+bs soft, NT] Ext-[no edema] Neuro [still very sedated from CADY psych could not assess as she is very sedated General [no acute distress] Thrill in left arm graft Results - Labs CBC & BMP: 10/28/16 04:06 10/28/16 04:06 Lab Results: I have reviewed the past 24 hour labs Labs: 4 sets of blood cultures all positive for gram-positive cocci. Vancomycin trough level 42 Quality Measures - VTE Contraindication to Pharmacological VTE Prophylaxis: Coagulopathy
[2016-10-28] MEDS: ENOXAPARIN 30 MG/0.3 ML SYRINGE SUBCUT SCH (17:36)
[2016-10-29 03:55] LABS: Basophils % 0.1 % (0.0-0.8); Eosinophils # 0.2 10*3/uL (0.0-0.87); Eosinophils % 0.8 % (0.00-10.9); Hematocrit 25.4 VOL% (35.7-47.0); Hemoglobin 8.9 GM/DL (12.0-16.0); Immature Granulocytes % 7.2 %; Immature Granulocytes Absolute 1.45 #; Lymphocytes # 1.3 10*3/uL (1.4-4.0); Lymphocytes % 6.4 % (21.3-54.2); Mean Corpuscular Hemoglobin 31 PG (27-34); Mean Corpuscular Volume 88.8 FL (87-102); Mean Platelet Volume 9.9 FL (9.6-12.0); Monocytes # 1.6 10*3/uL (0.11-0.8); Monocytes % 7.7 % (1.7-12.7); Neutrophils # 15.8 10*3/uL (1.4-7.4); Neutrophils % 77.8 % (38.7-73.9); Platelet Count 320 T/CUMM (130-400); Red Blood Count 2.86 MC/CUMM (3.8-5.5); Red Cell Distribution Width 12.1 % (9.3-17.3); White Blood Count 20.3 T/CUMM (4-12)
[2016-10-29 05:09] LABS: Eosinophils 1 % (0-10); Lymphocytes 4 % (20-55); Segmented Neutrophils 89 % (50-85); Total Cells Counted 100
[2016-10-29 05:10] LABS: Platelet Estimate Adequate
[2016-10-29 05:11] LABS: Hypochromasia Slight
[2016-10-29] MEDS ORDERED: LIDOCAINE/PRILOCAINE CREAM 5 GM TUBE TOP ONE (09:12)
[2016-10-29] MEDS: INSULIN LISPRO 100 UNIT/ML SUBCUT SCH ×4 (09:33→23:09)
[2016-10-29] MEDS: CALCIUM ACETATE 667 MG CAPSULE PO SCH ×3 (09:33→19:24)
[2016-10-29] MEDS: LIDOCAINE 5% PATCH TRANSDERM SCH ×2 (09:35→09:41)
[2016-10-29] MEDS: INSULIN NPH 100 UNIT/ML SUBCUT SCH (09:35)
--- NOTE | 2016-10-29 10:17 | Cardiothoracic Progress Note ---
Cardiothoracic Subjective Interval history: Patient is a 46-year-old lady with end-stage renal disease on hemodialysis. She presented with recurrent fevers and workup confirmed the diagnosis of positive blood cultures for MRSA. Workup suggested that temporary hemodialysis cultures might be infected and these were removed and culture from the catheter tip was positive for gram-positive cocci. 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 The patient is on appropriate antibiotic coverage for the MRSA. Several large series antibiotic treatment alone was responsible for the resolution of approximately 80% of patients with right-sided endocarditis. Surgery is reserved for patients with intractable sepsis or septic emboli to the lung. Cardiac decompensation is also an indication for surgery although this is much less likely than with left sided endocarditis. Fortunately right- sided endocarditis does not share the catastrophic potential complications of systemic emboli and rapid cardiac decompensation which can be seen with aortic valve endocarditis and mitral valve endocarditis. The patient has undergone an excellent diagnostic workup and is undergoing appropriate antibiotic therapy. At this point conservative management from a surgical standpoint is appropriate. I will follow with you but hopefully will not need to be involved surgically. Exam (Progress Note) - Constitutional Vitals: Period Temp Pulse Resp BP Sys/Peña Pulse Ox Last 24 Hr 97.1 F-99.1 F 72-78 18-20 85-110/45-58 89-97 Result/EKG - Labs CBC & BMP: 10/29/16 03:08 10/28/16 04:06 Labs: Laboratory Results - last 24 hr 10/28/16 10/28/16 10/28/16 11:06 11:52 15:48 WBC RBC Hgb Hct MCV MCH MCHC RDW Plt Count MPV Neut % (Auto) Lymph % (Auto) [place] % (Auto) Eos % (Auto) Baso % (Auto) Neut # (Auto) Lymph # (Auto) [place] # (Auto) Eos # (Auto) Baso # (Auto) Total Counted Immature Gran % Nucleated RBC % Immature Gran # Segmented Neutrophils Lymphocytes Monocytes Eosinophils Nucleated RBCs # Platelet Estimate Immature Plt Fraction Hypochromasia POC Glucose 170 H 113 H 116 H Random Vancomycin 10/28/16 10/29/16 10/29/16 19:07 03:08 03:08 WBC 20.3 H RBC 2.86 L Hgb 8.9 L Hct 25.4 L MCV 88.8 MCH 31 MCHC 35.0 RDW 12.1 Plt Count 320 D MPV 9.9 Neut % (Auto) 77.8 H Lymph % (Auto) 6.4 L [place] % (Auto) 7.7 Eos % (Auto) 0.8 Baso % (Auto) 0.1 Neut # (Auto) 15.8 H Lymph # (Auto) 1.3 L [place] # (Auto) 1.6 H Eos # (Auto) 0.2 Baso # (Auto) 0.0 Total Counted 100 Immature Gran % 7.2 Nucleated RBC % 0.0 Immature Gran # 1.45 Segmented Neutrophils 89 H Lymphocytes 4 L Monocytes 6 Eosinophils 1 Nucleated RBCs # 0.00 Platelet Estimate Adequate Immature Plt Fraction 0.0 Hypochromasia Slight POC Glucose 190 H Random Vancomycin 36.0 10/29/16 07:39 WBC RBC Hgb Hct MCV MCH MCHC RDW Plt Count MPV Neut % (Auto) Lymph % (Auto) [place] % (Auto) Eos % (Auto) Baso % (Auto) Neut # (Auto) Lymph # (Auto) [place] # (Auto) Eos # (Auto) Baso # (Auto) Total Counted Immature Gran % Nucleated RBC % Immature Gran # Segmented Neutrophils Lymphocytes Monocytes Eosinophils Nucleated RBCs # Platelet Estimate Immature Plt Fraction Hypochromasia POC Glucose 331 H Random Vancomycin Quality Measures - VTE Contraindication to Pharmacological VTE Prophylaxis: Coagulopathy
[2016-10-29] MEDS: CYCLOBENZAPRINE 10 MG TABLET PO PRN (11:23)
--- NOTE | 2016-10-29 12:02 | Infectious Disease Progress ---
Assessment and Plan (1) Fever Status: Acute Assessment and plan: Most likely due to the MRSA septicemia complicated by infective endocarditis. Treatment as below. Current Visit: Yes (2) MRSA (methicillin resistant Staphylococcus aureus) septicemia Status: Acute Assessment and plan: The source of the septicemia is her hemodialysis catheter. 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 The patient has persisted pain in the area of her shoulders and I wonder if this is referred pain related to infection of her spinal canal. I am concerned about this given the numbness in her left hand. Recommendations: 1. Continue vancomycin; we are targeting a more aggressive trough of 20-25 2. MRI cervical and thoracic spine with contrast 3. Repeat blood cultures again today Discussed with Dr. Silveira and Dr. Dias Current Visit: Yes (3) Morbid obesity Status: Acute Current Visit: No (4) Diabetes type 2, uncontrolled Status: Chronic Current Visit: No Qualifiers: Diabetes mellitus complication status: with kidney complications Diabetes mellitus complication detail: with chronic kidney disease Chronic kidney disease stage: on chronic dialysis (5) ESRD (end stage renal disease) on dialysis Problem details: Stable for d/c today. F/U outpt HD unit [facility]. Status: Chronic Assessment and plan: Fortunately AV fistula is maturing she will not need a new catheter. Current Visit: No (6) Hypertension Status: Chronic Current Visit: No Qualifiers: Hypertension type: renovascular hypertension Qualified Code(s): I15.0 - Renovascular hypertension Infectious Disease - PN: Subj Interval history: Patient feels a little better today but she still has severe pain to her shoulders. When asked about numbness or tingling she says she has a bit of numbness of the left hand. Specifically denied pain to the neck or thoracic or lumbar spines. Legs feel okay no numbness no weakness. She has not had any fever. I am told that her dialysis AV fistula is working and so she will get dialysis via that today. Infectious Disease Exam (PN) - Constitutional Vitals: Temp Pulse Resp BP Pulse Ox 97.3 F L 71 18 147/61 98 10/29/16 11:50 10/29/16 11:50 10/29/16 11:50 10/29/16 11:50 10/29/16 11:50 General appearance: no acute distress Exam: General appearance: In mild painful distress but looks more alert and interactive - Eye Eye exam: Present: EOMI. no icterus Pupils: Present: INDRA - ENT ENT exam: no oral exudates - Respiratory Respiratory exam: vesicular BS, no crepitations or wheezes - Cardiovascular Cardiovascular exam: regular rate and rhythm, no murmurs - GI/Abdominal GI/Abdominal exam: normal bowel sounds, soft, non-tender, no organomegaly or mass - Extremities Exam Extremities exam: no edema, tenderness on palpation of her shoulders - Skin Skin exam: Tiny pustules scattered all over the skin including trunk and limbs Results - Labs CBC & BMP: 10/29/16 03:08 10/28/16 04:06 Lab Results: I have reviewed the past 24 hour labs (Repeat blood cultures from 2 days ago still positive, gram-positive cocci growing from HD catheter tip) Quality Measures - VTE Contraindication to Pharmacological VTE Prophylaxis: Coagulopathy
--- NOTE | 2016-10-29 12:55 | Nephrology Progress Note ---
Nephrology - PN: Subj Interval history: 10/25/2016. Patient is resting. she mentions that she is feeling a little bit better today. No shortness of breath or chest pain. She tolerated dialysis on yesterday. 10/26/2016. Patient complains of back pain. She is not getting much relief with [place]. No fevers or chills. Patient did get a gram of vancomycin yesterday. Blood culture was positive in 1 bottle. At this time we will add Flexeril 5 mg twice daily. We will also give a Lidoderm patch. 10/28/2016. The patient tolerated dialysis on yesterday. She is now status post tunnel catheter removal. Afebrile at this time. Has received vancomycin. At this time will reassess to when we will reinsert tunnel catheter. 10/29/2016. The patient has evidence of endocarditis. Continue with antibiotics. At this time patient get an MRI done and we will dialyze today after the test is complete. Exam (PN)-Nephrology - Vital Signs Vital signs: Period Temp Pulse Resp BP Sys/Peña Pulse Ox Last 24 Hr 97.1 F-99.1 F 71-78 18-20 85-147/45-61 89-98 - General Appearance General appearance: well-developed, well-nourished EENT: ATNC Neck: supple Respiratory: clear Cardiology: regular rate, regular rhythm Gastrointestinal: normoactive bowel sounds, no tenderness Neurologic: alert and oriented x3 Psychiatric: mood/affect appropriate - Lab 10/29/16 03:08 10/28/16 04:06 Most recent lab results Calcium 7.0 MG/DL (8.5-10.1) L 10/28/16 04:06 Magnesium 2.0 MG/DL (1.8-2.4) 10/28/16 04:06 Assessment and Plan (1) HTN (hypertension) Status: Chronic Current Visit: Yes Qualifiers: Hypertension type: essential hypertension Qualified Code(s): I10 - Essential (primary) hypertension (2) Diabetes type 2, uncontrolled Status: Chronic Current Visit: No Qualifiers: Diabetes mellitus complication status: with kidney complications Diabetes mellitus complication detail: with chronic kidney disease Chronic kidney disease stage: on chronic dialysis (3) Hypertension Status: Chronic Current Visit: No Qualifiers: Hypertension type: renovascular hypertension Qualified Code(s): I15.0 - Renovascular hypertension (4) ESRD (end stage renal disease) Status: Chronic Assessment and plan: Hemodialysis as scheduled. Dialysis today. Current Visit: No (5) Hypokalemia Status: Resolved Current Visit: Yes (6) Back pain Status: Acute Assessment and plan: We will add Flexeril for musculoskeletal pain. MRI of the spine. Current Visit: Yes
[2016-10-29] MEDS ORDERED: LORazepam 1 MG TABLET ONE (13:13)
[2016-10-29] MEDS ORDERED: LORazepam 0.5 MG TABLET PO ONE (13:14)
[2016-10-29] MEDS ORDERED: VANCOMYCIN INJ 500 MG in SODIUM CHLORIDE 0.9% 100 ML IV ONE (16:00)
--- NOTE | 2016-10-29 16:38 | Hospitalist Progress Note ---
Assessment and Plan (1) MRSA (methicillin resistant Staphylococcus aureus) septicemia Status: Acute Assessment and plan: Dr. Ford consulted, cont vancomycin but trough too high, repeat blood cultures positive for gram-positive cocci. CADY showed vegetation on the right tricuspid valve. Consult Dr. Dias and Dr. Cervantes for opinion on right-sided endocarditis. Dr. Dias has consulted and reports most likely an 80% resolution of right-sided endocarditis. Dr. Ford has ordered an MRI of her cervical and thoracic spine to ensure this infection has not seeded in her back. Current Visit: Yes (2) Diabetes type 2, uncontrolled Status: Chronic Assessment and plan: Blood sugars higher today, will increase insulin Current Visit: No Qualifiers: Diabetes mellitus complication status: with kidney complications Diabetes mellitus complication detail: with chronic kidney disease Chronic kidney disease stage: on chronic dialysis (3) Hypertension Status: Chronic Assessment and plan: cont to hold blood pressure meds for now Current Visit: No Qualifiers: Hypertension type: renovascular hypertension Qualified Code(s): I15.0 - Renovascular hypertension (4) Pulmonary hypertension Status: Chronic Assessment and plan: PAP of 43 on echo Current Visit: No (5) Unspecified sleep apnea Status: Acute Assessment and plan: Dr. Atkins has ordered auto titrating CPAP. Patient did not wear her CPAP last night. Explained the essential nature of healing from this infection would be help with better oxygenation. Current Visit: No (6) ESRD (end stage renal disease) on dialysis Problem details: Stable for d/c today. F/U outpt HD unit [place]. Status: Chronic Assessment and plan: Nursing reports patient is not getting dialysis today but tomorrow. Current Visit: No (7) Endocarditis Status: Acute Assessment and plan: Should resolve with antibiotic therapy, thanks to Dr. Dias for his input Current Visit: Yes Hospitalist: Subjective Interval history: Patient will not receive dialysis today. Dr. Ford called me to discuss her case. Patient was complaining of some pain in her shoulders and tingling and numbness in her left hand. Patient did not complain of these symptoms when I saw her this morning she was rather lethargic from not wearing her CPAP. Dr. Ford asked for an MRI of her cervical and thoracic spine. Exam - Constitutional Vitals: Period Temp Pulse Resp BP Sys/Peña Pulse Ox Last 24 Hr 97.1 F-99.0 F 70-78 18-20 85-147/45-61 90-98 Exam: Okay Heart Rate-[RRR] Lungs-[CTAB but diminished] GI-[+bs soft, NT] Ext-[no edema] Neuro [arousable but lethargic from not wearing her CPAP at night psych depressed mood and flat affect General [no acute distress] Thrill in left arm graft better today Results - Labs CBC & BMP: 10/29/16 03:08 10/28/16 04:06 Lab Results: I have reviewed the past 24 hour labs Labs: I will plan blood cultures positive for MRSA sensitive to vancomycin, stool for C. difficile is negative, stool for culture is negative, repeat blood cultures today pending Quality Measures - VTE Contraindication to Pharmacological VTE Prophylaxis: Coagulopathy
[2016-10-29] MEDS: CALCITRIOL 0.25 MCG CAPSULE PO SCH (19:23)
[2016-10-29] MEDS: VALSARTAN 160 MG TABLET PO SCH (19:23)
[2016-10-29] MEDS: ENOXAPARIN 30 MG/0.3 ML SYRINGE SUBCUT SCH (19:23)
--- NOTE | 2016-10-29 20:40 | Magnetic Resonance Report ---
History: Sepsis. Evaluate for discitis or abscess. MRSA septicemia. Shoulder pain Date: 10/29/2016 Study: MRI cervical spine without contrast Comparison exam: No previous similar The cervical spine was scanned in the sagittal and axial planes on the 1.2 Zee open magnet without IV contrast. Sequences include T1, T2, and STIR sequences. The cervical cord is normal in caliber and signal without intrinsic mass lesion or edema on this noncontrast study. There is no Chiari I malformation. The cervical vertebral bodies are well aligned and are well-maintained in height. There is no high-grade spinal stenosis or focal disc extrusion. There is no obvious epidural fluid collection of an abnormal nature. There is mild scattered disc desiccation throughout the cervical spine, though the cervical disc spaces are fairly well-maintained. Impression: No acute abnormality as detailed above PROCEDURE INTERPRETED AT [facility] DEPARTMENT OF RADIOLOGY Final Report Signed by: Dr. Amy Dietrich
--- NOTE | 2016-10-29 20:50 | Magnetic Resonance Report ---
History: MRSA sepsis. Back pain. Shoulder pain Date: 10/29/2016 Study: MRI thoracic spine without contrast Comparison exam: No previous thoracic MRI available for comparison at this time The thoracic spine was imaged in the sagittal and axial planes on the 1.2 Zee open magnet without IV contrast. Sequences include T1, T2, and STIR sequences. The thoracic level cord is normal in caliber and signal without obvious intrinsic lesion. There is no obvious spinal stenosis or disc extrusion. The thoracic vertebral bodies are well aligned and are well-maintained in height. There is no evidence to suggest discitis. There is mild scattered disc desiccation in the mid thoracic spine. There is slightly decreased fine detail related to patient size. Impression: No definite acute abnormality PROCEDURE INTERPRETED AT [facility] DEPARTMENT OF RADIOLOG[facility] Final Report Signed by: Dr. Amy Dietrich
[2016-10-30 06:00] LABS: Basophils # 0.1 10*3/uL (0.0-0.2); Basophils % 0.2 % (0.0-0.8); Eosinophils # 0.2 10*3/uL (0.0-0.87); Eosinophils % 1.1 % (0.00-10.9); Hematocrit 24.7 VOL% (35.7-47.0); Hemoglobin 8.8 GM/DL (12.0-16.0); Immature Granulocytes % 7.5 %; Immature Granulocytes Absolute 1.68 #; Lymphocytes # 1.4 10*3/uL (1.4-4.0); Lymphocytes % 6.2 % (21.3-54.2); Mean Corpuscular HGB Conc 35.6 GM/DL (32-36); Mean Corpuscular Hemoglobin 32 PG (27-34); Mean Corpuscular Volume 88.5 FL (87-102); Mean Platelet Volume 9.5 FL (9.6-12.0); Monocytes # 1.7 10*3/uL (0.11-0.8); Monocytes % 7.5 % (1.7-12.7); Neutrophils # 17.4 10*3/uL (1.4-7.4); Neutrophils % 77.5 % (38.7-73.9); Platelet Count 381 T/CUMM (130-400); Red Blood Count 2.79 MC/CUMM (3.8-5.5); White Blood Count 22.4 T/CUMM (4-12)
[2016-10-30 06:32] LABS: Band Neutrophils 1 % (0-10); Hypochromasia 1+; Lymphocytes 9 % (20-55); Metamyelocytes 3 %; Microcytosis Slight; Segmented Neutrophils 80 % (50-85); Total Cells Counted 100
[2016-10-30] MEDS ORDERED: INSULIN NPH 100 UNIT/ML SUBCUT SCH (07:30)
[2016-10-30] MEDS: INSULIN NPH 100 UNIT/ML SUBCUT SCH ×3 (08:06→17:39)
[2016-10-30] MEDS: CALCIUM ACETATE 667 MG CAPSULE PO SCH ×3 (08:34→18:22)
[2016-10-30] MEDS: INSULIN LISPRO 100 UNIT/ML SUBCUT SCH ×5 (09:02→21:36)
[2016-10-30] MEDS: LIDOCAINE 5% PATCH TRANSDERM SCH (09:03)
[2016-10-30] MEDS ORDERED: KETOROLAC 15 MG/1 ML VIAL IV PRN (11:05)
--- NOTE | 2016-10-30 11:10 | Hospitalist Progress Note ---
Assessment and Plan (1) MRSA (methicillin resistant Staphylococcus aureus) septicemia Status: Acute Assessment and plan: Continue vancomycin after each dialysis. Repeat blood cultures pending. Patient extremely weak would like to go to [facility] for rehab Current Visit: Yes (2) Diabetes type 2, uncontrolled Status: Chronic Assessment and plan: Blood sugars higher today, will increase insulin Current Visit: No Qualifiers: Diabetes mellitus complication status: with kidney complications Diabetes mellitus complication detail: with chronic kidney disease Chronic kidney disease stage: on chronic dialysis (3) Hypertension Status: Chronic Assessment and plan: Controlled Current Visit: No Qualifiers: Hypertension type: renovascular hypertension Qualified Code(s): I15.0 - Renovascular hypertension (4) Pulmonary hypertension Status: Chronic Assessment and plan: PAP of 43 on echo Current Visit: No (5) Unspecified sleep apnea Status: Acute Assessment and plan: CPAP at night Current Visit: No (6) ESRD (end stage renal disease) on dialysis Problem details: Stable for d/c today. F/U outpt HD unit [facility]. Status: Chronic Assessment and plan: Dialysis today Current Visit: No (7) Endocarditis Status: Acute Assessment and plan: Continue IV antibiotics Current Visit: Yes (8) Bilateral leg weakness Status: Acute Assessment and plan: PT, OT, rehab Current Visit: Yes Hospitalist: Subjective Interval history: We will have PT and OT see her. Patient said she would like to go to rehab at [facility]. She attempted to wear CPAP last night but did not keep it on for a period of time. I have encouraged her to do so at that she will get much better if she does. Exam - Constitutional Vitals: Period Temp Pulse Resp BP Sys/Peña Pulse Ox Last 24 Hr 97.3 F-97.9 F 70-75 16-20 109-147/47-61 90-98 Exam: Okay Heart Rate-[RRR] Lungs-[CTAB GI-[+bs soft, NT] Ext-[no edema] Neuro sleepy and weak. psych depressed mood and flat affect General [no acute distress] Thrill in left arm graft better today Results - Labs CBC & BMP: 10/30/16 05:08 10/28/16 04:06 Lab Results: I have reviewed the past 24 hour labs Labs: Repeat blood cultures pending - Diagnostic Findings Procedure: MRI: report reviewed by me (MRI no evidence of abscess on spine) Quality Measures - VTE Contraindication to Pharmacological VTE Prophylaxis: Coagulopathy
--- NOTE | 2016-10-30 11:38 | Dialysis Note ---
Dialysis Note - Dialysis Note Ms. Paul is seen during her hemodialysis. She is using her left upper arm fistula and tolerating dialysis well with stable blood pressure.
[2016-10-30] MEDS ORDERED: GENTAMICIN INJ 100 MG in PREMIX 1 EACH IV SCH (12:00)
[2016-10-30] MEDS ORDERED: VANCOMYCIN INJ 500 MG in SODIUM CHLORIDE 0.9% 100 ML IV ONE ×2 (12:30→16:00)
--- NOTE | 2016-10-30 13:16 | Sleep Medicine Progress Note ---
Assessment and Plan (1) JOSE (obstructive sleep apnea) Status: Acute Assessment and plan: We will continue efforts at encouraging CPAP usage with follow-up of results. Current Visit: No (2) HTN (hypertension) Status: Chronic Current Visit: Yes Qualifiers: Hypertension type: essential hypertension Qualified Code(s): I10 - Essential (primary) hypertension (3) Diabetes type 2, uncontrolled Status: Chronic Current Visit: No Qualifiers: Diabetes mellitus complication status: with kidney complications Diabetes mellitus complication detail: with chronic kidney disease Chronic kidney disease stage: on chronic dialysis Sleep Medicine Subjective Interval history: Patient did not sleep with CPAP last night. I did discuss the need to continue to try. I think she will benefit from it. We will continue to work with her and helping her achieve compliance with CPAP. Exam (Progress Note) - Constitutional Vitals: Period Temp Pulse Resp BP Sys/Peña Pulse Ox Last 24 Hr 97.6 F-97.9 F 70-75 16-20 109-124/47-61 90-98 Exam: She is alert and responsive and sitting up on side of bed. Exam otherwise unremarkable and unchanged. Results - Labs CBC & BMP: 10/30/16 05:08 10/28/16 04:06 Lab Results: I have reviewed the past 24 hour labs
[2016-10-30] MEDS: VALSARTAN 160 MG TABLET PO SCH (15:02)
[2016-10-30] MEDS: FLUoxetine 20 MG CAPSULE PO SCH (15:02)
[2016-10-30] MEDS: BISACODYL 5 MG TABLET PO SCH (15:02)
[2016-10-30] MEDS: CALCITRIOL 0.25 MCG CAPSULE PO SCH (15:02)
--- NOTE | 2016-10-30 15:52 | Infectious Disease Progress ---
Assessment and Plan (1) Fever Status: Acute Assessment and plan: Most likely due to the MRSA septicemia complicated by infective endocarditis. Treatment as below. Current Visit: Yes (2) MRSA (methicillin resistant Staphylococcus aureus) septicemia Status: Acute Assessment and plan: The source of the septicemia is her hemodialysis catheter. 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 The patient has persisted pain in the area of her shoulders but fortunately MRI images show no paraspinal or epidural abscess. Recommendations: 1. Continue vancomycin; she had a high trough yesterday and will be repeated tomorrow with drug redosed once trough less than 25 2. Follow-up results of repeat blood cultures Current Visit: Yes (3) Morbid obesity Status: Acute Current Visit: No (4) Diabetes type 2, uncontrolled Status: Chronic Current Visit: No Qualifiers: Diabetes mellitus complication status: with kidney complications Diabetes mellitus complication detail: with chronic kidney disease Chronic kidney disease stage: on chronic dialysis (5) ESRD (end stage renal disease) on dialysis Problem details: Stable for d/c today. F/U outpt HD unit [facility]. Status: Chronic Assessment and plan: Fortunately AV fistula is maturing she will not need a new catheter. Current Visit: No (6) Hypertension Status: Chronic Current Visit: No Qualifiers: Hypertension type: renovascular hypertension Qualified Code(s): I15.0 - Renovascular hypertension Infectious Disease - PN: Subj Interval history: Patient still feeling quite sore across the shoulders. She has not had any fever. Generally just weak. Infectious Disease Exam (PN) - Constitutional Vitals: Temp Pulse Resp BP Pulse Ox 97.9 F 72 18 117/61 96 10/30/16 07:50 10/30/16 07:50 10/30/16 07:50 10/30/16 07:50 10/30/16 07:50 General appearance: no acute distress Exam: General appearance: In mild painful distress and a bit drowsy - Eye Eye exam: Present: EOMI. no icterus Pupils: Present: INDRA - ENT ENT exam: no oral exudates - Respiratory Respiratory exam: vesicular BS, no crepitations or wheezes - Cardiovascular Cardiovascular exam: regular rate and rhythm, no murmurs - GI/Abdominal GI/Abdominal exam: normal bowel sounds, soft, non-tender, no organomegaly or mass - Extremities Exam Extremities exam: no edema, tenderness on palpation of her shoulders - Skin Skin exam: No new rashes Results - Labs CBC & BMP: 10/30/16 05:08 10/28/16 04:06 Lab Results: I have reviewed the past 24 hour labs (Repeat blood cultures from yesterday negative to date) - Diagnostic Findings Procedure: MRI: report reviewed by me (MRI cervical and thoracic spines unremarkable) Quality Measures - VTE Contraindication to Pharmacological VTE Prophylaxis: Coagulopathy
[2016-10-30] MEDS: ENOXAPARIN 30 MG/0.3 ML SYRINGE SUBCUT SCH (17:40)
[2016-10-31 05:44] LABS: Basophils % 0.2 % (0.0-0.8); Eosinophils # 0.2 10*3/uL (0.0-0.87); Eosinophils % 1.2 % (0.00-10.9); Hematocrit 25.2 VOL% (35.7-47.0); Hemoglobin 8.8 GM/DL (12.0-16.0); Immature Granulocytes % 6.7 %; Immature Granulocytes Absolute 1.25 #; Lymphocytes # 1.1 10*3/uL (1.4-4.0); Lymphocytes % 5.9 % (21.3-54.2); Mean Corpuscular HGB Conc 34.9 GM/DL (32-36); Mean Corpuscular Hemoglobin 31 PG (27-34); Mean Corpuscular Volume 89.7 FL (87-102); Mean Platelet Volume 9.1 FL (9.6-12.0); Monocytes # 1.7 10*3/uL (0.11-0.8); Monocytes % 8.9 % (1.7-12.7); Neutrophils # 14.4 10*3/uL (1.4-7.4); Neutrophils % 77.1 % (38.7-73.9); Platelet Count 409 T/CUMM (130-400); Red Blood Count 2.81 MC/CUMM (3.8-5.5); Red Cell Distribution Width 12.1 % (9.3-17.3); White Blood Count 18.6 T/CUMM (4-12)
[2016-10-31 06:06] LABS: Hypochromasia 1+; Lymphocytes 5 % (20-55); Metamyelocytes 1 %; Microcytosis Slight; Segmented Neutrophils 87 % (50-85); Total Cells Counted 100
[2016-10-31 06:07] LABS: Platelet Estimate Increased
[2016-10-31 06:20] LABS: Calcium 7.4 MG/DL (8.5-10.1); Osmolality,Calculated 279.8 MOS/KG (273-304); Potassium 4.5 MMOL/L (3.5-5.1)
--- NOTE | 2016-10-31 09:22 | Dialysis Note ---
Dialysis Note - Dialysis Note Patient seen on dialysis. She is tolerating the procedure. Blood pressure 125/ 60. Cardiovascular regular rate. Lungs clear to auscultation. Abdomen is soft.
[2016-10-31] MEDS: CALCIUM ACETATE 667 MG CAPSULE PO SCH ×3 (10:17→16:38)
[2016-10-31] MEDS: LIDOCAINE 5% PATCH TRANSDERM SCH (10:18)
[2016-10-31] MEDS: VALSARTAN 160 MG TABLET PO SCH (10:20)
[2016-10-31] MEDS: CALCITRIOL 0.25 MCG CAPSULE PO SCH (10:23)
[2016-10-31] MEDS: INSULIN LISPRO 100 UNIT/ML SUBCUT SCH ×4 (10:23→21:29)
[2016-10-31] MEDS: BISACODYL 5 MG TABLET PO SCH (10:23)
[2016-10-31] MEDS: FLUoxetine 20 MG CAPSULE PO SCH (10:23)
[2016-10-31] MEDS: INSULIN NPH 100 UNIT/ML SUBCUT SCH ×2 (10:24→16:38)
--- NOTE | 2016-10-31 12:10 | Infectious Disease Progress ---
Assessment and Plan (1) Fever Status: Acute Assessment and plan: Due to the MRSA septicemia complicated by infective endocarditis. It has resolved. Current Visit: Yes (2) MRSA (methicillin resistant Staphylococcus aureus) septicemia Status: Acute Assessment and plan: The source of the septicemia is her hemodialysis catheter. 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 Patient has defervesced and leukocytosis slightly better. Recommendations: 1. Continue vancomycin with drug redosed once trough less than 25 2. Follow-up results of repeat blood cultures Current Visit: Yes (3) Morbid obesity Status: Acute Current Visit: No (4) Diabetes type 2, uncontrolled Status: Chronic Current Visit: No Qualifiers: Diabetes mellitus complication status: with kidney complications Diabetes mellitus complication detail: with chronic kidney disease Chronic kidney disease stage: on chronic dialysis (5) ESRD (end stage renal disease) on dialysis Problem details: Stable for d/c today. F/U outpt HD unit [place]. Status: Chronic Assessment and plan: Fortunately AV fistula is maturing she will not need a new catheter. Current Visit: No (6) Hypertension Status: Chronic Current Visit: No Qualifiers: Hypertension type: renovascular hypertension Qualified Code(s): I15.0 - Renovascular hypertension Infectious Disease - PN: Subj Interval history: Patient is doing okay today, but from the bilateral shoulder pain she has no other problems. She has been afebrile. Infectious Disease Exam (PN) - Constitutional Vitals: Temp Pulse Resp BP Pulse Ox 96.4 F L 72 18 98/47 91 L 10/31/16 08:00 10/31/16 08:00 10/31/16 08:00 10/31/16 10:20 10/31/16 08:00 General appearance: no acute distress Exam: General appearance: Comfortable on dialysis - Eye Eye exam: Present: EOMI. no icterus Pupils: Present: INDRA - ENT ENT exam: no oral exudates - Respiratory Respiratory exam: vesicular BS, no crepitations or wheezes - Cardiovascular Cardiovascular exam: regular rate and rhythm, no murmurs - GI/Abdominal GI/Abdominal exam: normal bowel sounds, soft, non-tender, no organomegaly or mass - Extremities Exam Extremities exam: no edema - Skin Skin exam: No new rashes Results - Labs CBC & BMP: 10/31/16 05:27 10/31/16 05:27 Lab Results: I have reviewed the past 24 hour labs (Repeat blood cultures from the no growth to date) Quality Measures - VTE Contraindication to Pharmacological VTE Prophylaxis: Coagulopathy
--- NOTE | 2016-10-31 12:42 | Sleep Medicine Progress Note ---
Assessment and Plan (1) JOSE (obstructive sleep apnea) Status: Acute Assessment and plan: We will continue to work on her mask fit and compliance with CPAP. Current Visit: No (2) HTN (hypertension) Status: Chronic Current Visit: Yes Qualifiers: Hypertension type: essential hypertension Qualified Code(s): I10 - Essential (primary) hypertension (3) Diabetes type 2, uncontrolled Status: Chronic Current Visit: No Qualifiers: Diabetes mellitus complication status: with kidney complications Diabetes mellitus complication detail: with chronic kidney disease Chronic kidney disease stage: on chronic dialysis Sleep Medicine Subjective Interval history: Patient did a little bit better last night with CPAP. She only spent 2 hours and 45 minutes on CPAP but this is improvement. She states that she has some leak with her mask. When she did sleep with CPAP, it did seem to control her sleep apnea well, she had an AHI of only 0.7. Exam (Progress Note) - Constitutional Vitals: Period Temp Pulse Resp BP Sys/Peña Pulse Ox Last 24 Hr 96.4 F-98.9 F 70-80 14-20 98-137/47-62 91-98 Exam: She is alert and responsive and sitting up on side of bed. Exam otherwise unremarkable and unchanged. Results - Labs CBC & BMP: 10/31/16 05:27 10/31/16 05:27 Lab Results: I have reviewed the past 24 hour labs
--- NOTE | 2016-10-31 15:57 | Hospitalist Progress Note ---
Assessment and Plan (1) MRSA (methicillin resistant Staphylococcus aureus) septicemia Status: Acute Assessment and plan: Continue vancomycin after each dialysis. Repeat blood cultures negative no growth. Patient extremely weak would like to go to [facility] for rehab and IV antibiotic Current Visit: Yes (2) Diabetes type 2, uncontrolled Status: Chronic Assessment and plan: Blood sugars better controlled Current Visit: No Qualifiers: Diabetes mellitus complication status: with kidney complications Diabetes mellitus complication detail: with chronic kidney disease Chronic kidney disease stage: on chronic dialysis (3) Hypertension Status: Chronic Assessment and plan: Stable Current Visit: No Qualifiers: Hypertension type: renovascular hypertension Qualified Code(s): I15.0 - Renovascular hypertension (4) Pulmonary hypertension Status: Chronic Assessment and plan: PAP of 43 on echo Current Visit: No (5) Unspecified sleep apnea Status: Acute Assessment and plan: CPAP at night continue attempts to try to improve comply Current Visit: No (6) ESRD (end stage renal disease) on dialysis Problem details: Stable for d/c today. F/U outpt HD unit [facility]. Status: Chronic Assessment and plan: Dialysis today Current Visit: No (7) Endocarditis Status: Acute Assessment and plan: Continue IV antibiotics for 6 weeks or when endocarditis completely resolved Current Visit: Yes (8) Bilateral leg weakness Status: Acute Assessment and plan: PT, OT, rehab Current Visit: Yes (9) Severe depression Status: Acute Assessment and plan: Continue Prozac Current Visit: Yes (10) Constipation Status: Acute Assessment and plan: Dulcolax Current Visit: Yes Hospitalist: Subjective Interval history: Patient has been tentatively accepted at [facility] when stable for transfer. She received dialysis today. I have spoke with her and she is extremely depressed and discouraged. She is very weak and needs rehab. We started her on an antidepressant yesterday. She is still trying to work with her CPAP and is difficult to get it adjusted. Still complaining of pain in her left hand Exam - Constitutional Vitals: Period Temp Pulse Resp BP Sys/Pñea Pulse Ox Last 24 Hr 96.4 F-98.9 F 70-80 14-20 98-137/47-62 91-98 Exam: Okay Heart Rate-[RRR] Lungs-[CTAB GI-[+bs soft, NT] Ext-[no edema] Neuro sleepy and weak. psych depressed mood and flat affect General [no acute distress] Results - Labs CBC & BMP: 10/31/16 05:27 10/31/16 05:27 Lab Results: I have reviewed the past 24 hour labs Labs: Repeat blood cultures negative no growth Quality Measures - VTE Contraindication to Pharmacological VTE Prophylaxis: Coagulopathy
[2016-10-31] MEDS: ENOXAPARIN 30 MG/0.3 ML SYRINGE SUBCUT SCH (16:39)
[2016-10-31] MEDS ORDERED: VANCOMYCIN INJ 1,000 MG in SODIUM CHLORIDE 0.9% 250 ML IV ONE (18:00)
[2016-11-01 06:09] LABS: Basophils % 0.2 % (0.0-0.8); Eosinophils # 0.2 10*3/uL (0.0-0.87); Eosinophils % 1.1 % (0.00-10.9); Hematocrit 25.8 VOL% (35.7-47.0); Hemoglobin 8.9 GM/DL (12.0-16.0); Immature Granulocytes % 6.3 %; Immature Granulocytes Absolute 1.31 #; Lymphocytes # 1.6 10*3/uL (1.4-4.0); Lymphocytes % 7.7 % (21.3-54.2); Mean Corpuscular HGB Conc 34.5 GM/DL (32-36); Mean Corpuscular Hemoglobin 32 PG (27-34); Mean Corpuscular Volume 91.5 FL (87-102); Mean Platelet Volume 9.1 FL (9.6-12.0); Monocytes # 1.7 10*3/uL (0.11-0.8); Monocytes % 8.2 % (1.7-12.7); Neutrophils % 76.5 % (38.7-73.9); Platelet Count 443 T/CUMM (130-400); Red Blood Count 2.82 MC/CUMM (3.8-5.5); Red Cell Distribution Width 12.1 % (9.3-17.3)
[2016-11-01 07:59] LABS: Calcium 7.6 MG/DL (8.5-10.1); Osmolality,Calculated 274.5 MOS/KG (273-304); Potassium 4.4 MMOL/L (3.5-5.1)
[2016-11-01] MEDS: INSULIN LISPRO 100 UNIT/ML SUBCUT SCH ×4 (07:59→21:16)
[2016-11-01 08:11] LABS: Band Neutrophils 4 % (0-10); Lymphocytes 8 % (20-55); Macrocytosis 1+; Myelocytes 2 %; Platelet Estimate Adequate; Polychromasia Slight; Segmented Neutrophils 74 % (50-85); Total Cells Counted 100
[2016-11-01] MEDS: LIDOCAINE 5% PATCH TRANSDERM SCH (09:47)
[2016-11-01] MEDS: BISACODYL 5 MG TABLET PO SCH (09:47)
[2016-11-01] MEDS: INSULIN NPH 100 UNIT/ML SUBCUT SCH ×2 (09:47→17:24)
[2016-11-01] MEDS: CALCITRIOL 0.25 MCG CAPSULE PO SCH (09:47)
[2016-11-01] MEDS: CALCIUM ACETATE 667 MG CAPSULE PO SCH ×3 (09:47→17:25)
[2016-11-01] MEDS: FLUoxetine 20 MG CAPSULE PO SCH (09:47)
[2016-11-01] MEDS: VALSARTAN 160 MG TABLET PO SCH (09:48)
--- NOTE | 2016-11-01 12:20 | Hospitalist Progress Note ---
Assessment and Plan (1) MRSA (methicillin resistant Staphylococcus aureus) septicemia Status: Acute Assessment and plan: Continue vancomycin after each dialysis. Repeat blood cultures negative no growth. Patient extremely weak would like to go to [facility] for rehab and IV antibiotic Current Visit: Yes (2) Diabetes type 2, uncontrolled Status: Chronic Assessment and plan: Blood sugars better controlled, cont insulin Current Visit: No Qualifiers: Diabetes mellitus complication status: with kidney complications Diabetes mellitus complication detail: with chronic kidney disease Chronic kidney disease stage: on chronic dialysis (3) Hypertension Status: Chronic Assessment and plan: controlled Current Visit: No Qualifiers: Hypertension type: renovascular hypertension Qualified Code(s): I15.0 - Renovascular hypertension (4) Pulmonary hypertension Status: Chronic Assessment and plan: PAP of 43 on echo Current Visit: No (5) Unspecified sleep apnea Status: Acute Assessment and plan: CPAP cont Current Visit: No (6) ESRD (end stage renal disease) on dialysis Problem details: Stable for d/c today. F/U outpt HD unit [facility]. Status: Chronic Assessment and plan: Dialysis thursday Current Visit: No (7) Endocarditis Status: Acute Assessment and plan: Continue IV antibiotics for 6 weeks or when endocarditis completely resolved, blood cx still turning positive Current Visit: Yes (8) Bilateral leg weakness Status: Acute Assessment and plan: PT, OT, rehab Current Visit: Yes (9) Severe depression Status: Acute Assessment and plan: Continue Prozac Current Visit: Yes (10) Constipation Status: Acute Assessment and plan: Dulcolax prn Current Visit: Yes Hospitalist: Subjective Interval history: Patient's white count went up today. I am concerned that she is developing atelectasis from lying in bed all day. She will not get dialysis again until Thursday. I have spoken with Dr. Palm and she wants her to just get up and get out of bed and walk around. She did wear her CPAP some last night and feels a little bit better today. She still has a lot of restless leg. Her depression seems just to touch better today. Exam - Constitutional Vitals: Period Temp Pulse Resp BP Sys/Peña Pulse Ox Last 24 Hr 96.7 F-99.3 F 73-81 16-20 90-150/40-65 90-94 Exam: Okay Heart Rate-[RRR] Lungs-[CTAB GI-[+bs soft, NT] Ext-[no edema] Neuro alert and oriented 3 but not making any real effort to get out of bed psych depressed mood and flat affect General [no acute distress] Results - Labs CBC & BMP: 11/01/16 05:43 11/01/16 05:43 Lab Results: I have reviewed the past 24 hour labs Labs: The blood cultures from the are now growing 1 of 2 positive for gram- positive cocci. Quality Measures - VTE Contraindication to Pharmacological VTE Prophylaxis: Coagulopathy
[2016-11-01] MEDS: CYCLOBENZAPRINE 10 MG TABLET PO PRN (12:58)
--- NOTE | 2016-11-01 13:36 | XRay Report ---
Portable chest. Indication: Shortness of breath. Comparison: April 22, 2016. The heart is enlarged. The pulmonary vasculature is normal. There is mild patchy infiltrate in the lateral aspect of the left lung base. No pneumothorax or pleural effusion. Impression: Stable cardiomegaly. Mild left basilar infiltrate. PROCEDURE INTERPRETED AT [facility] DEPARTMENT OF RADIOLOGY Final Report Signed by: Dr. Alessandra Perales
--- NOTE | 2016-11-01 14:33 | Nephrology Progress Note ---
Nephrology - PN: Subj Interval history: Ms. Paul is seen in follow-up of her end-stage renal disease. She is dialyzed with her left upper arm AV fistula and did well with that yesterday. She is complaining of some aches and pains mostly in her back in the left arm. We have encouraged her to be out of bed. Her chest is clear she is not short of breath and is lying flat without difficulty Exam (PN)-Nephrology - Vital Signs Vital signs: Period Temp Pulse Resp BP Sys/Peña Pulse Ox Last 24 Hr 96.7 F-99.3 F 73-81 16-20 90-150/40-65 90-94 - Lab 11/01/16 05:43 11/01/16 05:43 Most recent lab results Calcium 7.6 MG/DL (8.5-10.1) L 11/01/16 05:43 Magnesium 2.0 MG/DL (1.8-2.4) 10/28/16 04:06
[2016-11-01] MEDS: ENOXAPARIN 30 MG/0.3 ML SYRINGE SUBCUT SCH (17:24)
[2016-11-02 06:18] LABS: Basophils # 0.1 10*3/uL (0.0-0.2); Basophils % 0.3 % (0.0-0.8); Eosinophils # 0.3 10*3/uL (0.0-0.87); Eosinophils % 1.6 % (0.00-10.9); Hematocrit 25.7 VOL% (35.7-47.0); Hemoglobin 8.7 GM/DL (12.0-16.0); Immature Granulocytes % 5.5 %; Immature Granulocytes Absolute 0.99 #; Lymphocytes # 1.6 10*3/uL (1.4-4.0); Lymphocytes % 8.9 % (21.3-54.2); Mean Corpuscular HGB Conc 33.9 GM/DL (32-36); Mean Corpuscular Hemoglobin 31 PG (27-34); Mean Corpuscular Volume 91.8 FL (87-102); Mean Platelet Volume 8.8 FL (9.6-12.0); Monocytes # 1.4 10*3/uL (0.11-0.8); Monocytes % 7.9 % (1.7-12.7); Neutrophils # 13.6 10*3/uL (1.4-7.4); Neutrophils % 75.8 % (38.7-73.9); Platelet Count 432 T/CUMM (130-400)
[2016-11-02 08:05] LABS: Eosinophils 1 % (0-10); Hypochromasia 1+; Lymphocytes 6 % (20-55); Platelet Estimate Adequate; Segmented Neutrophils 87 % (50-85); Total Cells Counted 100
[2016-11-02] MEDS: INSULIN NPH 100 UNIT/ML SUBCUT SCH ×2 (09:42→17:18)
[2016-11-02] MEDS: CALCIUM ACETATE 667 MG CAPSULE PO SCH ×3 (09:44→17:21)
[2016-11-02] MEDS: LIDOCAINE 5% PATCH TRANSDERM SCH (09:44)
[2016-11-02] MEDS: VALSARTAN 160 MG TABLET PO SCH (09:44)
[2016-11-02] MEDS: CALCITRIOL 0.25 MCG CAPSULE PO SCH (09:44)
[2016-11-02] MEDS: INSULIN LISPRO 100 UNIT/ML SUBCUT SCH ×4 (09:45→21:30)
[2016-11-02] MEDS: FLUoxetine 20 MG CAPSULE PO SCH (09:45)
[2016-11-02] MEDS: CYCLOBENZAPRINE 10 MG TABLET PO PRN (09:46)
--- NOTE | 2016-11-02 11:44 | Nephrology Progress Note ---
Nephrology - PN: Subj Interval history: Ms. Paul is seen in follow-up of her end-stage renal disease. She status post removal of her dialysis catheter and used her fistula on October 31. She will be dialyzed again tomorrow. We have encouraged her to be out of bed but she is moving about minimally. Her chest is clear and she is in no distress Exam (PN)-Nephrology - Vital Signs Vital signs: Period Temp Pulse Resp BP Sys/Peña Pulse Ox Last 24 Hr 97.3 F-98.6 F 70-77 16-20 102-135/51-67 91-98 - Lab 11/02/16 05:58 11/01/16 05:43 Most recent lab results Calcium 7.6 MG/DL (8.5-10.1) L 11/01/16 05:43 Magnesium 2.0 MG/DL (1.8-2.4) 10/28/16 04:06
--- NOTE | 2016-11-02 13:30 | Hospitalist Progress Note ---
Assessment and Plan (1) MRSA (methicillin resistant Staphylococcus aureus) septicemia Status: Acute Assessment and plan: Continue vancomycin, last dose on 10/31, bc from 11/01 negative, 10/29 1/2 positive Current Visit: Yes (2) Diabetes type 2, uncontrolled Status: Chronic Assessment and plan: Blood sugars not controlled, increased daytime insulin Current Visit: No Qualifiers: Diabetes mellitus complication status: with kidney complications Diabetes mellitus complication detail: with chronic kidney disease Chronic kidney disease stage: on chronic dialysis (3) Hypertension Status: Chronic Assessment and plan: controlled Current Visit: No Qualifiers: Hypertension type: renovascular hypertension Qualified Code(s): I15.0 - Renovascular hypertension (4) Pulmonary hypertension Status: Chronic Assessment and plan: PAP of 43 on echo Current Visit: No (5) Unspecified sleep apnea Status: Acute Assessment and plan: CPAP becoming more compliant. Proud of her Current Visit: No (6) ESRD (end stage renal disease) on dialysis Problem details: Stable for d/c today. F/U outpt HD unit [place]. Status: Chronic Assessment and plan: Dialysis thursday Current Visit: No (7) Endocarditis Status: Acute Assessment and plan: Continue IV antibiotics for 6 weeks or when endocarditis completely resolved, blood cx drawn on November 01. If negative tomorrow may go to [facility] for rehab Current Visit: Yes (8) Bilateral leg weakness Status: Acute Assessment and plan: PT, OT, rehab Current Visit: Yes (9) Severe depression Status: Acute Assessment and plan: Improving on Prozac Current Visit: Yes (10) Constipation Status: Acute Assessment and plan: Resolved Current Visit: Yes (11) Ulnar neuropathy at elbow of left upper extremity Status: Acute Assessment and plan: Orthopedics recommends elbow pads and Mobic Current Visit: Yes Hospitalist: Subjective Interval history: Patient was supposed to go to [facility] blood cultures were still turning positive. Had spoke with Dr. Palm over the weekend and she did not want to add any antibiotics at this time. Your blood cultures on 10/29/2016 1 of 2 were positive for gram-positive cocci. May be a contaminant but have to treat as real. Repeat blood cultures were drawn yesterday and are no growth preliminary 1 day. If blood cultures are negative tomorrow consider transferring to [facility] after dialysis for further IV antibiotics and physical therapy. Patient is still having pain and her fourth and fifth digit of her left hand. It sounds like ulnar neuropathy. We will have from orthopedics see patient Exam - Constitutional Vitals: Period Temp Pulse Resp BP Sys/Peña Pulse Ox Last 24 Hr 97.3 F-98.6 F 70-77 16-18 102-135/51-67 91-98 Exam: Okay Heart Rate-[RRR] Lungs-[CTAB GI-[+bs soft, NT] Ext-[no edema] Neuro alert and oriented 3 motor 4 out of 5 psych depressed mood and flat affect but improving General [no acute distress] Results - Labs CBC & BMP: 11/02/16 05:58 11/01/16 05:43 Lab Results: I have reviewed the past 24 hour labs Labs: Blood cultures from 2016-03-20 negative no growth, blood culture on October 29, 2016 1 of 2 positive for gram-positive cocci Quality Measures - VTE Contraindication to Pharmacological VTE Prophylaxis: Coagulopathy
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
[2016-11-02] MEDS: MELOXICAM 7.5 MG TABLET PO SCH (17:16)
[2016-11-02] MEDS: ENOXAPARIN 30 MG/0.3 ML SYRINGE SUBCUT SCH (17:19)
[2016-11-03 06:04] LABS: Basophils # 0.1 10*3/uL (0.0-0.2); Basophils % 0.3 % (0.0-0.8); Eosinophils # 0.3 10*3/uL (0.0-0.87); Eosinophils % 1.6 % (0.00-10.9); Hematocrit 25.3 VOL% (35.7-47.0); Hemoglobin 8.3 GM/DL (12.0-16.0); Immature Granulocytes % 3.8 %; Immature Granulocytes Absolute 0.68 #; Lymphocytes # 2.2 10*3/uL (1.4-4.0); Lymphocytes % 12.3 % (21.3-54.2); Mean Corpuscular HGB Conc 32.8 GM/DL (32-36); Mean Corpuscular Hemoglobin 30 PG (27-34); Mean Platelet Volume 8.5 FL (9.6-12.0); Monocytes # 1.6 10*3/uL (0.11-0.8); Monocytes % 8.7 % (1.7-12.7); Neutrophils # 13.2 10*3/uL (1.4-7.4); Neutrophils % 73.3 % (38.7-73.9); Platelet Count 463 T/CUMM (130-400); Red Blood Count 2.75 MC/CUMM (3.8-5.5)
[2016-11-03 06:27] LABS: Eosinophils 1 % (0-10); Giant Platelets Few; Hypochromasia 1+; Lymphocytes 11 % (20-55); Ovalocytes Slight; Platelet Estimate Adequate; Segmented Neutrophils 77 % (50-85); Total Cells Counted 100
[2016-11-03 06:28] LABS: Microcytosis Slight
[2016-11-03] MEDS: INSULIN LISPRO 100 UNIT/ML SUBCUT SCH ×4 (08:43→21:44)
[2016-11-03] MEDS: CALCIUM ACETATE 667 MG CAPSULE PO SCH ×3 (08:43→18:44)
[2016-11-03] MEDS: INSULIN NPH 100 UNIT/ML SUBCUT SCH ×2 (08:50→16:37)
--- NOTE | 2016-11-03 09:08 | Dialysis Note ---
Dialysis Note - Dialysis Note Patient is seen on dialysis. She is tolerating the procedure. Blood pressure 134/74. Cardiovascular regular rate. Lungs clear to auscultation. Abdomen is soft.
[2016-11-03] MEDS: LIDOCAINE 5% PATCH TRANSDERM SCH (09:27)
--- NOTE | 2016-11-03 12:48 | Hospitalist Progress Note ---
Assessment and Plan (1) MRSA (methicillin resistant Staphylococcus aureus) septicemia Status: Acute Assessment and plan: The patient is admitted the hospital for IV antibiotics. Cultures obtained on 01 November were still showing septicemia. The catheter has been removed. We will recheck blood cultures and follow result. The patient will need 6 weeks of IV antibiotics following her first sterile culture. Current Visit: Yes (2) ESRD (end stage renal disease) on dialysis Problem details: Stable for d/c today. F/U outpt HD unit [place]. Status: Chronic Current Visit: No (3) Sepsis Status: Acute Current Visit: Yes (4) Ulnar neuropathy at elbow of left upper extremity Status: Acute Current Visit: Yes Hospitalist: Subjective Interval history: Ms. Paul was admitted the hospital with MRSA septicemia due to tunneled vascular catheter. The patient has less shortness of breath and less fever than she had on admission. Exam - Constitutional Vitals: Period Temp Pulse Resp BP Sys/Peña Pulse Ox Last 24 Hr 96.9 F-99.1 F 67-84 16-20 134-153/62-74 92-96 Exam: Constitutional System: Mild distress. No tremulousness. Resting quietly in bed seen on dialysis. Head: Normocephalic, atraumatic. Ears, Nose and Throat System: No evidence of Otitis or Mastoiditis. No epistaxis or discharge Eyes System: Pupils equal, round, and reactive. Extraocular muscles intact. Neck: Supple, without adenopathy, No jugular venous distention. No thyromegaly , neck mass, or prior surgery apparent. Respiratory System: Chest clear to auscultation. Cardiovascular System: Heart with regular rate and rhythm. No murmur. GI System: Abdomen soft, nontender. Normo active bowel sounds present. Results - Labs CBC & BMP: 11/03/16 05:52 11/01/16 05:43 Lab Results: I have reviewed the past 24 hour labs Quality Measures - VTE Contraindication to Pharmacological VTE Prophylaxis: Coagulopathy
--- NOTE | 2016-11-03 13:07 | Infectious Disease Progress ---
Assessment and Plan (1) Fever Status: Acute Assessment and plan: resolved. Current Visit: Yes (2) MRSA (methicillin resistant Staphylococcus aureus) septicemia Status: Acute Assessment and plan: Patient had an infected hemodialysis catheter in has been having prolonged MRSA bacteremia, with confirmed tricuspid valve endocarditis. I was present blood cultures are still positive. There was had high levels of vancomycin in the blood. Recommendations: 1. Given persistent positive blood cultures I am going to switch from vancomycin to daptomycin. I am reluctant to give daptomycin is sometimes end- stage kidney disease patient's do not do as well on this drug however we are not making any progress with therapeutic vancomycin levels. 2. Repeat blood cultures again tomorrow 3. Monitor CPK levels on daptomycin, check again tomorrow, it was high in the past Current Visit: Yes (3) Morbid obesity Status: Acute Current Visit: No (4) Diabetes type 2, uncontrolled Status: Chronic Current Visit: No Qualifiers: Diabetes mellitus complication status: with kidney complications Diabetes mellitus complication detail: with chronic kidney disease Chronic kidney disease stage: on chronic dialysis (5) ESRD (end stage renal disease) on dialysis Problem details: Stable for d/c today. F/U outpt HD unit [place]. Status: Chronic Assessment and plan: Fortunately AV fistula is maturing she will not need a new catheter. Current Visit: No (6) Hypertension Status: Chronic Current Visit: No Qualifiers: Hypertension type: renovascular hypertension Qualified Code(s): I15.0 - Renovascular hypertension Infectious Disease - PN: Subj Interval history: Patient generally feeling better, less pain to the shoulders however she has some discomfort to the left hand and was seen by orthopedics over the weekend. Impression was possible carpal tunnel syndrome. Patient had blood cultures positive mid last week and so they were repeated on Thursday. I discussed the case with Dr. Silveira at that time. Patient has not had any fever. She still has leukocytosis. Infectious Disease Exam (PN) - Constitutional Vitals: Temp Pulse Resp BP Pulse Ox 98.9 F 67 18 134/74 96 11/03/16 08:00 11/03/16 08:00 11/03/16 08:00 11/03/16 08:00 11/03/16 08:00 General appearance: no acute distress Exam: General appearance: Comfortable on dialysis, generally better than last week more alert and interactive - Eye Eye exam: Present: EOMI. no icterus Pupils: Present: INDRA - ENT ENT exam: no oral exudates - Respiratory Respiratory exam: vesicular BS, no crepitations or wheezes - Cardiovascular Cardiovascular exam: regular rate and rhythm, no murmurs - GI/Abdominal GI/Abdominal exam: normal bowel sounds, soft, non-tender, no organomegaly or mass - Extremities Exam Extremities exam: no edema - Skin Skin exam: No new rashes Results - Labs CBC & BMP: 11/03/16 05:52 11/01/16 05:43 Lab Results: I have reviewed the past 24 hour labs (1 of 2 sets of blood cultures from this past Thursday, last 2 days ago, positive once again for MRSA ) Quality Measures - VTE Contraindication to Pharmacological VTE Prophylaxis: Coagulopathy
[2016-11-03] MEDS: MELOXICAM 7.5 MG TABLET PO SCH (13:29)
[2016-11-03] MEDS: VALSARTAN 160 MG TABLET PO SCH (13:30)
[2016-11-03] MEDS: FLUoxetine 20 MG CAPSULE PO SCH (13:30)
[2016-11-03] MEDS: ACETAMINOPHEN 325 MG TABLET PO PRN (13:30)
[2016-11-03] MEDS: CALCITRIOL 0.25 MCG CAPSULE PO SCH (13:32)
[2016-11-03] MEDS: VANCOMYCIN INJ 1,000 MG in SODIUM CHLORIDE 0.9% 250 ML IV ONE ×2 (13:32→15:25)
[2016-11-03] MEDS: ENOXAPARIN 30 MG/0.3 ML SYRINGE SUBCUT SCH (16:37)
--- NOTE | 2016-11-03 17:58 | Sleep Medicine Progress Note ---
Assessment and Plan (1) JOSE (obstructive sleep apnea) Status: Acute Assessment and plan: Continue auto titration CPAP. Current Visit: No (2) HTN (hypertension) Status: Chronic Current Visit: Yes Qualifiers: Hypertension type: essential hypertension Qualified Code(s): I10 - Essential (primary) hypertension (3) Diabetes type 2, uncontrolled Status: Chronic Current Visit: No Qualifiers: Diabetes mellitus complication status: with kidney complications Diabetes mellitus complication detail: with chronic kidney disease Chronic kidney disease stage: on chronic dialysis Sleep Medicine Subjective Interval history: Patient does seem to be adjusting to the use of CPAP. She slept with CPAP over 7 hours last night. Average device EPAP is 7.6. Average AHI 6.3. It is encouraging to see her improve with usage of CPAP. She does feel that she is benefiting from CPAP. Exam (Progress Note) - Constitutional Vitals: Period Temp Pulse Resp BP Sys/Peña Pulse Ox Last 24 Hr 96.7 F-99.1 F 67-84 16-18 134-165/62-74 93-96 Exam: She is alert and responsive. HEENT unremarkable. Chest with symmetrical breath sounds without focal wheeze or rhonchi. Cardiac exam reveals a regular rhythm without murmur or gallop. Abdomen soft nontender without palpable hepatosplenomegaly or mass. Extremities are without significant clubbing or edema. Neurologically, grossly intact. Results - Labs CBC & BMP: 11/03/16 05:52 11/01/16 05:43 Lab Results: I have reviewed the past 24 hour labs
[2016-11-04 06:03] LABS: Basophils # 0.1 10*3/uL (0.0-0.2); Basophils % 0.4 % (0.0-0.8); Eosinophils # 0.3 10*3/uL (0.0-0.87); Eosinophils % 1.6 % (0.00-10.9); Hematocrit 24.9 VOL% (35.7-47.0); Hemoglobin 8.5 GM/DL (12.0-16.0); Immature Granulocytes % 2.3 %; Lymphocytes # 1.5 10*3/uL (1.4-4.0); Mean Corpuscular HGB Conc 34.1 GM/DL (32-36); Mean Corpuscular Hemoglobin 31 PG (27-34); Mean Corpuscular Volume 91.9 FL (87-102); Mean Platelet Volume 8.7 FL (9.6-12.0); Monocytes # 1.2 10*3/uL (0.11-0.8); Monocytes % 7.1 % (1.7-12.7); Neutrophils # 13.6 10*3/uL (1.4-7.4); Neutrophils % 79.6 % (38.7-73.9); Platelet Count 453 T/CUMM (130-400); Red Blood Count 2.71 MC/CUMM (3.8-5.5); White Blood Count 17.1 T/CUMM (4-12)
[2016-11-04] MEDS: VALSARTAN 160 MG TABLET PO SCH (08:46)
[2016-11-04] MEDS: INSULIN LISPRO 100 UNIT/ML SUBCUT SCH ×4 (08:46→21:54)
[2016-11-04] MEDS: CALCITRIOL 0.25 MCG CAPSULE PO SCH (08:47)
[2016-11-04] MEDS: CALCIUM ACETATE 667 MG CAPSULE PO SCH ×3 (08:47→17:55)
[2016-11-04] MEDS: LIDOCAINE 5% PATCH TRANSDERM SCH (08:48)
[2016-11-04] MEDS: MELOXICAM 7.5 MG TABLET PO SCH (09:21)
[2016-11-04] MEDS: INSULIN NPH 100 UNIT/ML SUBCUT SCH ×2 (09:23→17:37)
[2016-11-04] MEDS: FLUoxetine 20 MG CAPSULE PO SCH (09:49)
--- NOTE | 2016-11-04 14:42 | Sleep Medicine Progress Note ---
Assessment and Plan (1) JOSE (obstructive sleep apnea) Status: Acute Assessment and plan: Continue CPAP therapy. Current Visit: No (2) HTN (hypertension) Status: Chronic Current Visit: Yes Qualifiers: Hypertension type: essential hypertension Qualified Code(s): I10 - Essential (primary) hypertension (3) Diabetes type 2, uncontrolled Status: Chronic Current Visit: No Qualifiers: Diabetes mellitus complication status: with kidney complications Diabetes mellitus complication detail: with chronic kidney disease Chronic kidney disease stage: on chronic dialysis Sleep Medicine Subjective Interval history: Patient slept with CPAP last night but states she pulled it off during the middle the night. She is feeling better. Her spirits look brighter. She appears to be improving. Exam (Progress Note) - Constitutional Vitals: Period Temp Pulse Resp BP Sys/Peña Pulse Ox Last 24 Hr 96.7 F-98.9 F 76-87 16-20 109-165/56-71 92-97 Exam: She is alert and responsive. HEENT unremarkable. Chest with symmetrical breath sounds without focal wheeze or rhonchi. Cardiac exam reveals a regular rhythm without murmur or gallop. Abdomen soft nontender without palpable hepatosplenomegaly or mass. Extremities are without significant clubbing or edema. Neurologically, grossly intact. Results - Labs CBC & BMP: 11/04/16 05:46 11/01/16 05:43 Lab Results: I have reviewed the past 24 hour labs
[2016-11-04] MEDS ORDERED: FLUCONAZOLE 150 MG TABLET PO ONE (15:24)
--- NOTE | 2016-11-04 15:26 | Infectious Disease Progress ---
Assessment and Plan (1) Fever Status: Acute Assessment and plan: resolved. Current Visit: Yes (2) MRSA (methicillin resistant Staphylococcus aureus) septicemia Status: Acute Assessment and plan: Prolonged MRSA bacteremia, with confirmed tricuspid valve endocarditis. Patient on daptomycin since yesterday. Overall she is doing better compared to a week ago. Recommendations: 1. Repeat blood cultures today 2. Continue daptomycin therapy Current Visit: Yes (3) Morbid obesity Status: Acute Current Visit: No (4) Diabetes type 2, uncontrolled Status: Chronic Current Visit: No Qualifiers: Diabetes mellitus complication status: with kidney complications Diabetes mellitus complication detail: with chronic kidney disease Chronic kidney disease stage: on chronic dialysis (5) ESRD (end stage renal disease) on dialysis Problem details: Stable for d/c today. F/U outpt HD unit [facility]. Status: Chronic Assessment and plan: Fortunately AV fistula is maturing she will not need a new catheter. Current Visit: No (6) Hypertension Status: Chronic Current Visit: No Qualifiers: Hypertension type: renovascular hypertension Qualified Code(s): I15.0 - Renovascular hypertension Infectious Disease - PN: Subj Interval history: Patient generally doing better, less pain especially of the shoulders. She has been ambulating with physical therapy, based herself today. No nausea vomiting or diarrhea. She has not had any fever. She does have a vaginal discharge and 2 shallow wounds to proximal inner thighs. Infectious Disease Exam (PN) - Constitutional Vitals: Temp Pulse Resp BP Pulse Ox 98.9 F 76 18 142/63 96 11/04/16 12:00 11/04/16 12:00 11/04/16 12:00 11/04/16 12:00 11/04/16 12:00 General appearance: no acute distress Exam: General appearance: Comfortable sitting up on side of bed - Eye Eye exam: Present: EOMI. no icterus Pupils: Present: INDRA - ENT ENT exam: no oral exudates - Respiratory Respiratory exam: vesicular BS, no crepitations or wheezes - Cardiovascular Cardiovascular exam: regular rate and rhythm, no murmurs - GI/Abdominal GI/Abdominal exam: normal bowel sounds, soft, non-tender, no organomegaly or mass - Creamy vaginal discharge present, linear ulcerations along both inner thighs with mild slough and base, no surrounding erythema - Extremities Exam Extremities exam: no edema - Skin Skin exam: Pustular rash scattered over body resolved Results - Labs CBC & BMP: 11/04/16 05:46 11/01/16 05:43 Lab Results: I have reviewed the past 24 hour labs (1 of 2 sets of blood cultures from the positive again for MRSA) Quality Measures - VTE Contraindication to Pharmacological VTE Prophylaxis: Coagulopathy
--- NOTE | 2016-11-04 17:27 | Hospitalist Progress Note ---
Assessment and Plan (1) MRSA (methicillin resistant Staphylococcus aureus) septicemia Status: Acute Assessment and plan: The patient is admitted the hospital for IV antibiotics. Cultures obtained on 01 November were still showing septicemia. The catheter has been removed. We will recheck blood cultures today and follow result. The patient will need 6 weeks of IV antibiotics following her first sterile culture. Current Visit: Yes (2) ESRD (end stage renal disease) on dialysis Problem details: Stable for d/c today. F/U outpt HD unit [employer] [facility]. Status: Chronic Current Visit: No (3) Sepsis Status: Acute Current Visit: Yes (4) Ulnar neuropathy at elbow of left upper extremity Status: Acute Current Visit: Yes Hospitalist: Subjective Interval history: Mrs. Paul has less joint pain today. She has minimal fever. The patient's blood cultures from November 01 show MRSA. Exam - Constitutional Vitals: Period Temp Pulse Resp BP Sys/Peña Pulse Ox Last 24 Hr 97.4 F-98.9 F 76-87 16-20 109-142/56-64 92-97 Exam: Constitutional System: Mild distress. No tremulousness. Resting quietly in bed seen on dialysis. Head: Normocephalic, atraumatic. Ears, Nose and Throat System: No evidence of Otitis or Mastoiditis. No epistaxis or discharge Eyes System: Pupils equal, round, and reactive. Extraocular muscles intact. Neck: Supple, without adenopathy, No jugular venous distention. No thyromegaly , neck mass, or prior surgery apparent. Respiratory System: Chest clear to auscultation. Cardiovascular System: Heart with regular rate and rhythm. No murmur. GI System: Abdomen soft, nontender. Normo active bowel sounds present. Results - Labs CBC & BMP: 11/04/16 05:46 11/01/16 05:43 Lab Results: I have reviewed the past 24 hour labs Quality Measures - VTE Contraindication to Pharmacological VTE Prophylaxis: Coagulopathy
--- NOTE | 2016-11-04 17:49 | Nephrology Progress Note ---
Nephrology - PN: Subj Interval history: 10/25/2016. Patient is resting. she mentions that she is feeling a little bit better today. No shortness of breath or chest pain. She tolerated dialysis on yesterday. 10/26/2016. Patient complains of back pain. She is not getting much relief with [place]. No fevers or chills. Patient did get a gram of vancomycin yesterday. Blood culture was positive in 1 bottle. At this time we will add Flexeril 5 mg twice daily. We will also give a Lidoderm patch. 10/28/2016. The patient tolerated dialysis on yesterday. She is now status post tunnel catheter removal. Afebrile at this time. Has received vancomycin. At this time will reassess to when we will reinsert tunnel catheter. 10/29/2016. The patient has evidence of endocarditis. Continue with antibiotics. At this time patient get an MRI done and we will dialyze today after the test is complete. 11/04/2016. The patient is resting comfortably. No fevers or chills. She has pending blood cultures. At this time continue with antibiotics per infectious disease. Will continue with scheduled hemodialysis for this patient. Exam (PN)-Nephrology - Vital Signs Vital signs: Period Temp Pulse Resp BP Sys/Peña Pulse Ox Last 24 Hr 97.4 F-98.9 F 76-87 16-20 109-142/56-64 92-97 - General Appearance General appearance: well-developed, well-nourished EENT: ATNC Neck: supple Respiratory: clear Cardiology: no edema, regular rate, regular rhythm Gastrointestinal: normoactive bowel sounds, no tenderness Neurologic: alert and oriented x3, CN 3-12 intact Musculoskeletal: no deformities, no clubbing Psychiatric: mood/affect appropriate, cooperative - Lab 11/04/16 05:46 11/01/16 05:43 Most recent lab results Calcium 7.6 MG/DL (8.5-10.1) L 11/01/16 05:43 Magnesium 2.0 MG/DL (1.8-2.4) 10/28/16 04:06 Assessment and Plan (1) HTN (hypertension) Status: Chronic Current Visit: Yes Qualifiers: Hypertension type: essential hypertension Qualified Code(s): I10 - Essential (primary) hypertension (2) Diabetes type 2, uncontrolled Status: Chronic Current Visit: No Qualifiers: Diabetes mellitus complication status: with kidney complications Diabetes mellitus complication detail: with chronic kidney disease Chronic kidney disease stage: on chronic dialysis (3) Hypertension Status: Chronic Current Visit: No Qualifiers: Hypertension type: renovascular hypertension Qualified Code(s): I15.0 - Renovascular hypertension (4) ESRD (end stage renal disease) Status: Chronic Assessment and plan: Hemodialysis as scheduled. Current Visit: No (5) Hypokalemia Status: Resolved Current Visit: Yes (6) Back pain Status: Acute Current Visit: Yes
[2016-11-04] MEDS: ENOXAPARIN 30 MG/0.3 ML SYRINGE SUBCUT SCH (17:55)
[2016-11-05 06:07] LABS: Basophils # 0.1 10*3/uL (0.0-0.2); Basophils % 0.6 % (0.0-0.8); Eosinophils # 0.3 10*3/uL (0.0-0.87); Eosinophils % 1.9 % (0.00-10.9); Hematocrit 23.6 VOL% (35.7-47.0); Hemoglobin 8.2 GM/DL (12.0-16.0); Immature Granulocytes % 1.9 %; Lymphocytes # 2.2 10*3/uL (1.4-4.0); Lymphocytes % 13.6 % (21.3-54.2); Mean Corpuscular HGB Conc 34.7 GM/DL (32-36); Mean Corpuscular Hemoglobin 32 PG (27-34); Mean Corpuscular Volume 92.2 FL (87-102); Mean Platelet Volume 8.4 FL (9.6-12.0); Monocytes # 1.4 10*3/uL (0.11-0.8); Monocytes % 8.5 % (1.7-12.7); Neutrophils # 11.7 10*3/uL (1.4-7.4); Neutrophils % 73.5 % (38.7-73.9); Platelet Count 431 T/CUMM (130-400); Red Blood Count 2.56 MC/CUMM (3.8-5.5); Red Cell Distribution Width 11.9 % (9.3-17.3); White Blood Count 15.9 T/CUMM (4-12)
[2016-11-05] MEDS: INSULIN LISPRO 100 UNIT/ML SUBCUT SCH ×4 (08:25→20:54)
[2016-11-05] MEDS: VALSARTAN 160 MG TABLET PO SCH (09:49)
[2016-11-05] MEDS: MELOXICAM 7.5 MG TABLET PO SCH (09:49)
[2016-11-05] MEDS: LIDOCAINE 5% PATCH TRANSDERM SCH (09:49)
[2016-11-05] MEDS: FLUoxetine 20 MG CAPSULE PO SCH (09:50)
[2016-11-05] MEDS: CALCITRIOL 0.25 MCG CAPSULE PO SCH (09:50)
[2016-11-05] MEDS: CALCIUM ACETATE 667 MG CAPSULE PO SCH ×3 (09:50→18:10)
[2016-11-05] MEDS: INSULIN NPH 100 UNIT/ML SUBCUT SCH ×2 (09:55→17:45)
[2016-11-05] MEDS: ONDANSETRON 4 MG/2 ML VIAL IV PRN (11:55)
--- NOTE | 2016-11-05 12:38 | Infectious Disease Progress ---
Assessment and Plan (1) Fever Status: Acute Assessment and plan: resolved. Current Visit: Yes (2) MRSA (methicillin resistant Staphylococcus aureus) septicemia Status: Acute Assessment and plan: Prolonged MRSA bacteremia, with confirmed tricuspid valve endocarditis. Patient on daptomycin since 2 days ago. Overall she is doing better. Recommendations: 1. Follow-up results of repeat blood cultures 2. Continue daptomycin therapy 3. Will be able to give definitive duration of therapy once we document negative blood cultures Current Visit: Yes (3) Morbid obesity Status: Acute Current Visit: No (4) Diabetes type 2, uncontrolled Status: Chronic Current Visit: No Qualifiers: Diabetes mellitus complication status: with kidney complications Diabetes mellitus complication detail: with chronic kidney disease Chronic kidney disease stage: on chronic dialysis (5) ESRD (end stage renal disease) on dialysis Problem details: Stable for d/c today. F/U outpt HD unit [employer] [facility]. Status: Chronic Assessment and plan: Fortunately AV fistula is maturing she will not need a new catheter. Current Visit: No (6) Hypertension Status: Chronic Current Visit: No Qualifiers: Hypertension type: renovascular hypertension Qualified Code(s): I15.0 - Renovascular hypertension Infectious Disease - PN: Subj Interval history: Patient continues to improve every day. She has not had any fever recently. Tolerating antibiotic without any soreness of the muscles, no nausea vomiting or diarrhea. Infectious Disease Exam (PN) - Constitutional Vitals: Temp Pulse Resp BP Pulse Ox 97.1 F L 82 18 91/57 97 11/05/16 11:27 11/05/16 11:27 11/05/16 11:27 11/05/16 11:27 11/05/16 11:27 General appearance: no acute distress Exam: General appearance: Comfortable - Eye Eye exam: Present: EOMI. no icterus Pupils: Present: INDRA - ENT ENT exam: no oral exudates - Respiratory Respiratory exam: vesicular BS, no crepitations or wheezes - Cardiovascular Cardiovascular exam: regular rate and rhythm, no murmurs - GI/Abdominal GI/Abdominal exam: normal bowel sounds, soft, non-tender, no organomegaly or mass - Extremities Exam Extremities exam: no edema - Skin Skin exam: No rash Results - Labs CBC & BMP: 11/05/16 05:51 11/01/16 05:43 Lab Results: I have reviewed the past 24 hour labs (Repeat blood cultures from yesterday are in progress) Quality Measures - VTE Contraindication to Pharmacological VTE Prophylaxis: Coagulopathy
--- NOTE | 2016-11-05 14:41 | Hospitalist Progress Note ---
Assessment and Plan (1) MRSA (methicillin resistant Staphylococcus aureus) septicemia Status: Acute Assessment and plan: The patient is admitted the hospital for IV antibiotics. Cultures obtained on 04 November are without growth so far. The catheter has been removed. The patient will need 6 weeks of IV antibiotics following her first sterile culture. The patient will likely transfer back to acute care at [facility] once blood cultures have been sterilized. Current Visit: Yes (2) ESRD (end stage renal disease) on dialysis Problem details: Stable for d/c today. F/U outpt HD unit [place]. Status: Chronic Current Visit: No (3) Sepsis Status: Acute Current Visit: Yes (4) Ulnar neuropathy at elbow of left upper extremity Status: Acute Current Visit: Yes Hospitalist: Subjective Interval history: The patient has continued incremental improvement of her shortness of breath chest discomfort and joint symptoms. Blood cultures from November 04 remain negative so far. Exam - Constitutional Vitals: Period Temp Pulse Resp BP Sys/Peña Pulse Ox Last 24 Hr 96.9 F-98.9 F 77-84 18-18 91-144/57-68 96-98 Exam: Constitutional System: Mild distress. No tremulousness. Resting quietly in bed seen on dialysis. Head: Normocephalic, atraumatic. Ears, Nose and Throat System: No evidence of Otitis or Mastoiditis. No epistaxis or discharge Eyes System: Pupils equal, round, and reactive. Extraocular muscles intact. Neck: Supple, without adenopathy, No jugular venous distention. No thyromegaly , neck mass, or prior surgery apparent. Respiratory System: Chest clear to auscultation. Cardiovascular System: Heart with regular rate and rhythm. No murmur. GI System: Abdomen soft, nontender. Normo active bowel sounds present. Results - Labs CBC & BMP: 11/05/16 05:51 11/01/16 05:43 Lab Results: I have reviewed the past 24 hour labs Quality Measures - VTE Contraindication to Pharmacological VTE Prophylaxis: Coagulopathy
--- NOTE | 2016-11-05 15:17 | Dialysis Note ---
Dialysis Note - Dialysis Note Patient seen on dialysis. Tolerating the procedure. Blood pressure is 91/57. Cardiovascular regular rate. Lungs clear to auscultation. Abdomen is soft.
[2016-11-05] MEDS: ENOXAPARIN 30 MG/0.3 ML SYRINGE SUBCUT SCH (17:46)
[2016-11-06 06:42] LABS: Calcium 7.8 MG/DL (8.5-10.1); Magnesium 2.5 MG/DL (1.8-2.4); Osmolality,Calculated 276.2 MOS/KG (273-304); Potassium 4.8 MMOL/L (3.5-5.1)
[2016-11-06] MEDS: INSULIN NPH 100 UNIT/ML SUBCUT SCH ×2 (08:31→17:33)
[2016-11-06] MEDS: INSULIN LISPRO 100 UNIT/ML SUBCUT SCH ×4 (08:32→20:54)
[2016-11-06] MEDS: MELOXICAM 7.5 MG TABLET PO SCH (08:32)
[2016-11-06] MEDS: CALCITRIOL 0.25 MCG CAPSULE PO SCH (08:32)
[2016-11-06] MEDS: CALCIUM ACETATE 667 MG CAPSULE PO SCH ×3 (08:32→17:33)
[2016-11-06] MEDS: FLUoxetine 20 MG CAPSULE PO SCH (08:32)
[2016-11-06] MEDS: VALSARTAN 160 MG TABLET PO SCH (08:33)
[2016-11-06] MEDS: ONDANSETRON 4 MG/2 ML VIAL IV PRN ×2 (09:26→20:54)
--- NOTE | 2016-11-06 10:10 | Hospitalist Progress Note ---
Assessment and Plan (1) MRSA (methicillin resistant Staphylococcus aureus) septicemia Status: Acute Assessment and plan: The patient is admitted the hospital for IV antibiotics. Cultures obtained on 04 November are without growth so far. The catheter has been removed. The patient will need 6 weeks of IV antibiotics following her first sterile culture. The patient will likely transfer back to acute care at [facility] once blood cultures have been sterilized. Current Visit: Yes (2) ESRD (end stage renal disease) on dialysis Problem details: Stable for d/c today. F/U outpt HD unit [facility]. Status: Chronic Current Visit: No (3) Sepsis Status: Acute Current Visit: Yes (4) Ulnar neuropathy at elbow of left upper extremity Status: Acute Current Visit: Yes Hospitalist: Subjective Interval history: Mrs. Paul continues without any new events. Her joint pains continue to improve. Blood cultures from the revealed no growth. Exam - Constitutional Vitals: Period Temp Pulse Resp BP Sys/Peña Pulse Ox Last 24 Hr 97.1 F-98.6 F 72-86 16-18 91-131/53-66 96-98 Exam: Constitutional System: Minimal distress. No tremulousness. Resting quietly in bed seen on dialysis. Head: Normocephalic, atraumatic. Ears, Nose and Throat System: No evidence of Otitis or Mastoiditis. No epistaxis or discharge Eyes System: Pupils equal, round, and reactive. Extraocular muscles intact. Neck: Supple, without adenopathy, No jugular venous distention. No thyromegaly , neck mass, or prior surgery apparent. Respiratory System: Chest clear to auscultation. Cardiovascular System: Heart with regular rate and rhythm. No murmur. GI System: Abdomen soft, nontender. Normo active bowel sounds present. Results - Labs CBC & BMP: 11/05/16 05:51 11/06/16 05:45 Lab Results: I have reviewed the past 24 hour labs Quality Measures - VTE Contraindication to Pharmacological VTE Prophylaxis: Coagulopathy
[2016-11-06] MEDS: LIDOCAINE 5% PATCH TRANSDERM SCH (10:52)
--- NOTE | 2016-11-06 12:58 | Sleep Medicine Progress Note ---
Assessment and Plan (1) JOSE (obstructive sleep apnea) Status: Acute Assessment and plan: We will need to look into setting up for auto titration CPAP after discharge. Follow-up will be in the [facility] sleep clinic. Current Visit: No (2) HTN (hypertension) Status: Chronic Current Visit: Yes Qualifiers: Hypertension type: essential hypertension Qualified Code(s): I10 - Essential (primary) hypertension (3) Diabetes type 2, uncontrolled Status: Chronic Current Visit: No Qualifiers: Diabetes mellitus complication status: with kidney complications Diabetes mellitus complication detail: with chronic kidney disease Chronic kidney disease stage: on chronic dialysis Sleep Medicine Subjective Interval history: Patient seems to be doing okay with use of CPAP and auto titration mode. I do not have downloaded information as of yet. Discharge is anticipated soon and she will need therapy there. We will see if this can be set up. Exam (Progress Note) - Constitutional Vitals: Period Temp Pulse Resp BP Sys/Peña Pulse Ox Last 24 Hr 97.5 F-98.6 F 72-86 16-18 104-183/53-81 91-98 Exam: She is alert and responsive. HEENT unremarkable. Chest with symmetrical breath sounds without focal wheeze or rhonchi. Cardiac exam reveals a regular rhythm without murmur or gallop. Abdomen soft nontender without palpable hepatosplenomegaly or mass. Extremities are without significant clubbing or edema. Neurologically, grossly intact. Results - Labs CBC & BMP: 11/05/16 05:51 11/06/16 05:45 Lab Results: I have reviewed the past 24 hour labs
--- NOTE | 2016-11-06 15:16 | Infectious Disease Progress ---
Assessment and Plan (1) Fever Status: Resolved Assessment and plan: resolved. Current Visit: Yes (2) MRSA (methicillin resistant Staphylococcus aureus) septicemia Status: Acute Assessment and plan: Prolonged MRSA bacteremia, with confirmed tricuspid valve endocarditis. Patient on daptomycin since 3 days ago. Unfortunately repeat blood cultures from 2 days ago are still positive. Recommendations: 1. Add ceftaroline, higher dose [for her renal function] of 400 mg every 12 hours 2. Continue daptomycin therapy 3. Repeat blood cultures in 2-3 days Current Visit: Yes (3) Morbid obesity Status: Acute Current Visit: No (4) Diabetes type 2, uncontrolled Status: Chronic Current Visit: No Qualifiers: Diabetes mellitus complication status: with kidney complications Diabetes mellitus complication detail: with chronic kidney disease Chronic kidney disease stage: on chronic dialysis (5) ESRD (end stage renal disease) on dialysis Problem details: Stable for d/c today. F/U outpt HD unit [facility]. Status: Chronic Assessment and plan: Fortunately AV fistula is maturing she will not need a new catheter. Current Visit: No (6) Hypertension Status: Chronic Current Visit: No Qualifiers: Hypertension type: renovascular hypertension Qualified Code(s): I15.0 - Renovascular hypertension Infectious Disease - PN: Subj Interval history: Patient says feels a bit unwell today due to upper abdominal pain. Associated with that is nausea and anorexia. No vomiting. No diarrhea. She has not had any fever. Infectious Disease Exam (PN) - Constitutional Vitals: Temp Pulse Resp BP Pulse Ox 98 F 82 20 183/81 91 L 11/06/16 11:48 11/06/16 11:48 11/06/16 14:20 11/06/16 11:48 11/06/16 11:48 General appearance: no acute distress Exam: General appearance: A bit uncomfortable due to abdominal pain - Eye Eye exam: Present: EOMI. no icterus Pupils: Present: INDRA - ENT ENT exam: no oral exudates - Respiratory Respiratory exam: vesicular BS, no crepitations or wheezes - Cardiovascular Cardiovascular exam: regular rate and rhythm, no murmurs - GI/Abdominal GI/Abdominal exam: normal bowel sounds, soft, mildly tender across upper quadrants - Extremities Exam Extremities exam: no edema - Skin Skin exam: No rash Results - Labs CBC & BMP: 11/05/16 05:51 11/06/16 05:45 Lab Results: I have reviewed the past 24 hour labs (Repeat blood cultures from 2 days ago +ve 1 of 2 sets for MRSA) Quality Measures - VTE Contraindication to Pharmacological VTE Prophylaxis: Coagulopathy
[2016-11-06] MEDS: ACETAMINOPHEN 325 MG TABLET PO PRN (16:06)
[2016-11-06] MEDS: CEFTAROLINE 200 MG in SODIUM CHLORIDE 0.9% 50 ML IV SCH (16:07)
--- NOTE | 2016-11-06 16:24 | Nephrology Progress Note ---
Nephrology - PN: Subj Interval history: 10/25/2016. Patient is resting. she mentions that she is feeling a little bit better today. No shortness of breath or chest pain. She tolerated dialysis on yesterday. 10/26/2016. Patient complains of back pain. She is not getting much relief with [place]. No fevers or chills. Patient did get a gram of vancomycin yesterday. Blood culture was positive in 1 bottle. At this time we will add Flexeril 5 mg twice daily. We will also give a Lidoderm patch. 10/28/2016. The patient tolerated dialysis on yesterday. She is now status post tunnel catheter removal. Afebrile at this time. Has received vancomycin. At this time will reassess to when we will reinsert tunnel catheter. 10/29/2016. The patient has evidence of endocarditis. Continue with antibiotics. At this time patient get an MRI done and we will dialyze today after the test is complete. 11/04/2016. The patient is resting comfortably. No fevers or chills. She has pending blood cultures. At this time continue with antibiotics per infectious disease. Will continue with scheduled hemodialysis for this patient. 11/06/2016. Patient is resting. She does describe some stomach upset. Continue with was scheduled dialysis. Continue with current antibiotic regimen. Exam (PN)-Nephrology - Vital Signs Vital signs: Period Temp Pulse Resp BP Sys/Peña Pulse Ox Last 24 Hr 6 F-98.6 F 72-86 16-20 104-183/53-81 91-98 - General Appearance General appearance: well-developed, well-nourished, obese EENT: ATNC Neck: supple Respiratory: clear Cardiology: regular rate, regular rhythm Gastrointestinal: normoactive bowel sounds, no tenderness Neurologic: alert and oriented x3 Musculoskeletal: no clubbing Psychiatric: mood/affect appropriate, cooperative - Lab 11/05/16 05:51 11/06/16 05:45 Most recent lab results Calcium 7.8 MG/DL (8.5-10.1) L 11/06/16 05:45 Magnesium 2.5 MG/DL (1.8-2.4) H 11/06/16 05:45 Assessment and Plan (1) HTN (hypertension) Status: Chronic Current Visit: Yes Qualifiers: Hypertension type: essential hypertension Qualified Code(s): I10 - Essential (primary) hypertension (2) Diabetes type 2, uncontrolled Status: Chronic Current Visit: No Qualifiers: Diabetes mellitus complication status: with kidney complications Diabetes mellitus complication detail: with chronic kidney disease Chronic kidney disease stage: on chronic dialysis (3) Hypertension Status: Chronic Current Visit: No Qualifiers: Hypertension type: renovascular hypertension Qualified Code(s): I15.0 - Renovascular hypertension (4) ESRD (end stage renal disease) Status: Chronic Assessment and plan: Hemodialysis as scheduled. Current Visit: No (5) Hypokalemia Status: Resolved Current Visit: Yes (6) Back pain Status: Acute Current Visit: Yes
[2016-11-06] MEDS: ENOXAPARIN 30 MG/0.3 ML SYRINGE SUBCUT SCH (17:50)
[2016-11-07] MEDS: CEFTAROLINE 200 MG in SODIUM CHLORIDE 0.9% 50 ML IV SCH (05:37)
[2016-11-07] MEDS: ONDANSETRON 4 MG/2 ML VIAL IV PRN ×3 (06:47→17:31)
--- NOTE | 2016-11-07 08:52 | Infectious Disease Progress ---
Assessment and Plan (1) Fever Status: Resolved Assessment and plan: resolved. Current Visit: Yes (2) MRSA (methicillin resistant Staphylococcus aureus) septicemia Status: Acute Assessment and plan: Prolonged MRSA bacteremia, with tricuspid valve endocarditis. Patient on daptomycin since 4 days ago, and I had to add Ceftin early yesterday due to persistent positive cultures. Recommendations: 1. Continue current antibiotics but increase daptomycin to 8 mg/kg every 48 hours 3. Repeat blood cultures tomorrow Current Visit: Yes (3) Morbid obesity Status: Acute Current Visit: No (4) Diabetes type 2, uncontrolled Status: Chronic Current Visit: No Qualifiers: Diabetes mellitus complication status: with kidney complications Diabetes mellitus complication detail: with chronic kidney disease Chronic kidney disease stage: on chronic dialysis (5) ESRD (end stage renal disease) on dialysis Problem details: Stable for d/c today. F/U outpt HD unit [place]. Status: Chronic Assessment and plan: Fortunately AV fistula is maturing she will not need a new catheter. Current Visit: No (6) Hypertension Status: Chronic Current Visit: No Qualifiers: Hypertension type: renovascular hypertension Qualified Code(s): I15.0 - Renovascular hypertension Infectious Disease - PN: Subj Interval history: Still complaining of epigastric pain. She has not been eating a lot. She fell this morning trying to get from chair to bed. No fever. Infectious Disease Exam (PN) - Constitutional Vitals: Temp Pulse Resp BP Pulse Ox 98.5 F 99 H 18 125/62 94 L 11/07/16 07:51 11/07/16 07:51 11/07/16 07:51 11/07/16 07:51 11/07/16 07:51 General appearance: no acute distress Exam: General appearance: A bit uncomfortable due to abdominal pain, but nontoxic- appearing - Eye Eye exam: Present: EOMI. no icterus Pupils: Present: INDRA - ENT ENT exam: no oral exudates - Respiratory Respiratory exam: vesicular BS, no crepitations or wheezes - Cardiovascular Cardiovascular exam: regular rate and rhythm, no murmurs - GI/Abdominal GI/Abdominal exam: normal bowel sounds, soft, mildly tender in epigastrium - Extremities Exam Extremities exam: no edema - Skin Skin exam: No rash Results - Labs CBC & BMP: 11/05/16 05:51 11/06/16 05:45 Lab Results: I have reviewed the past 24 hour labs Quality Measures - VTE Contraindication to Pharmacological VTE Prophylaxis: Coagulopathy
--- NOTE | 2016-11-07 09:27 | Hospitalist Progress Note ---
Assessment and Plan (1) MRSA (methicillin resistant Staphylococcus aureus) septicemia Status: Acute Assessment and plan: The patient is admitted the hospital for IV antibiotics. Cultures obtained on 04 November are growing gram-positive cocci. Blood cultures have been ordered again today. The catheter has been removed. The patient will need 6 weeks of IV antibiotics following her first sterile culture. The patient will likely transfer back to acute care at [facility] once blood cultures have been sterilized. Current Visit: Yes (2) ESRD (end stage renal disease) on dialysis Problem details: Stable for d/c today. F/U outpt HD unit [place]. Status: Chronic Current Visit: No (3) Sepsis Status: Acute Current Visit: Yes (4) Ulnar neuropathy at elbow of left upper extremity Status: Acute Current Visit: Yes Hospitalist: Subjective Interval history: Ms. Paul had blood culture from the become positive with gram-positive cocci consistent with MRSA. The patient got out of bed and had a fall last night. There were no apparent injuries. Exam - Constitutional Vitals: Period Temp Pulse Resp BP Sys/Peña Pulse Ox Last 24 Hr 6 F-99.3 F 82-99 16-20 125-183/62-81 91-95 Exam: Constitutional System: Minimal distress. No tremulousness. Resting quietly in bed seen on dialysis. Head: Normocephalic, atraumatic. Ears, Nose and Throat System: No evidence of Otitis or Mastoiditis. No epistaxis or discharge Eyes System: Pupils equal, round, and reactive. Extraocular muscles intact. Neck: Supple, without adenopathy, No jugular venous distention. No thyromegaly , neck mass, or prior surgery apparent. Respiratory System: Chest clear to auscultation. Cardiovascular System: Heart with regular rate and rhythm. No murmur. GI System: Abdomen soft, nontender. Normo active bowel sounds present. Results - Labs CBC & BMP: 11/05/16 05:51 11/06/16 05:45 Lab Results: I have reviewed the past 24 hour labs Quality Measures - VTE Contraindication to Pharmacological VTE Prophylaxis: Coagulopathy
[2016-11-07] MEDS: CALCIUM ACETATE 667 MG CAPSULE PO SCH ×3 (10:06→17:00)
[2016-11-07] MEDS: INSULIN NPH 100 UNIT/ML SUBCUT SCH ×2 (10:11→17:53)
[2016-11-07] MEDS: INSULIN LISPRO 100 UNIT/ML SUBCUT SCH ×4 (10:11→22:23)
[2016-11-07] MEDS: LIDOCAINE 5% PATCH TRANSDERM SCH (10:13)
--- NOTE | 2016-11-07 11:35 | Dialysis Note ---
Dialysis Note - Dialysis Note Patient is seen on dialysis she is tolerating the procedure. Blood pressure noted to be 165/82. Cardiovascular regular rate. Lungs are clear to auscultation. Abdomen is soft.
--- NOTE | 2016-11-07 11:53 | Sleep Medicine Progress Note ---
Assessment and Plan (1) JOSE (obstructive sleep apnea) Status: Acute Assessment and plan: Continue CPAP therapy is set up outpatient titration study. Current Visit: No (2) HTN (hypertension) Status: Chronic Current Visit: Yes Qualifiers: Hypertension type: essential hypertension Qualified Code(s): I10 - Essential (primary) hypertension (3) Diabetes type 2, uncontrolled Status: Chronic Current Visit: No Qualifiers: Diabetes mellitus complication status: with kidney complications Diabetes mellitus complication detail: with chronic kidney disease Chronic kidney disease stage: on chronic dialysis Sleep Medicine Subjective Interval history: Patient did not use CPAP last night, stating that she was too nauseated. I encouraged her to remain compliant with CPAP. She will be here through the weekend and will continue with auto titration CPAP. She will need to be set up for outpatient CPAP titration after discharge. Exam (Progress Note) - Constitutional Vitals: Period Temp Pulse Resp BP Sys/Peña Pulse Ox Last 24 Hr 6 F-99.3 F 84-99 16-20 125-178/60-81 93-95 Exam: She is alert and responsive. HEENT unremarkable. Chest with symmetrical breath sounds without focal wheeze or rhonchi. Cardiac exam reveals a regular rhythm without murmur or gallop. Abdomen soft nontender without palpable hepatosplenomegaly or mass. Extremities are without significant clubbing or edema. Neurologically, grossly intact. Results - Labs CBC & BMP: 11/05/16 05:51 11/06/16 05:45 Lab Results: I have reviewed the past 24 hour labs
[2016-11-07] MEDS: MELOXICAM 7.5 MG TABLET PO SCH (17:00)
[2016-11-07] MEDS: CALCITRIOL 0.25 MCG CAPSULE PO SCH (17:01)
[2016-11-07] MEDS: VALSARTAN 160 MG TABLET PO SCH (17:02)
[2016-11-07] MEDS: FLUoxetine 20 MG CAPSULE PO SCH (17:11)
[2016-11-07] MEDS: ENOXAPARIN 30 MG/0.3 ML SYRINGE SUBCUT SCH (17:35)
[2016-11-08] MEDS: CEFTAROLINE 200 MG in SODIUM CHLORIDE 0.9% 50 ML IV SCH ×2 (00:57→17:30)
[2016-11-08 04:55] LABS: Basophils # 0.1 10*3/uL (0.0-0.2); Basophils % 0.4 % (0.0-0.8); Eosinophils # 0.1 10*3/uL (0.0-0.87); Eosinophils % 0.3 % (0.00-10.9); Hematocrit 24.1 VOL% (35.7-47.0); Hemoglobin 7.8 GM/DL (12.0-16.0); Immature Granulocytes Absolute 0.28 #; Lymphocytes # 1.9 10*3/uL (1.4-4.0); Lymphocytes % 7.1 % (21.3-54.2); Mean Corpuscular HGB Conc 32.4 GM/DL (32-36); Mean Corpuscular Hemoglobin 31 PG (27-34); Mean Corpuscular Volume 94.5 FL (87-102); Mean Platelet Volume 8.7 FL (9.6-12.0); Monocytes # 1.7 10*3/uL (0.11-0.8); Monocytes % 6.2 % (1.7-12.7); Neutrophils # 22.7 10*3/uL (1.4-7.4); Platelet Count 334 T/CUMM (130-400); Red Blood Count 2.55 MC/CUMM (3.8-5.5); Red Cell Distribution Width 11.9 % (9.3-17.3); White Blood Count 26.8 T/CUMM (4-12)
[2016-11-08 05:27] LABS: Calcium 7.9 MG/DL (8.5-10.1); Magnesium 2.3 MG/DL (1.8-2.4); Osmolality,Calculated 275.7 MOS/KG (273-304); Potassium 4.9 MMOL/L (3.5-5.1)
[2016-11-08 06:21] LABS: Giant Platelets Few; Hypochromasia Slight; Microcytosis Slight; Platelet Estimate Adequate
[2016-11-08] MEDS: CALCIUM ACETATE 667 MG CAPSULE PO SCH ×3 (08:56→17:06)
[2016-11-08] MEDS: VALSARTAN 160 MG TABLET PO SCH (08:56)
[2016-11-08] MEDS: CALCITRIOL 0.25 MCG CAPSULE PO SCH (08:57)
[2016-11-08] MEDS: MELOXICAM 7.5 MG TABLET PO SCH (08:57)
[2016-11-08] MEDS: FLUoxetine 20 MG CAPSULE PO SCH (08:58)
[2016-11-08] MEDS: LIDOCAINE 5% PATCH TRANSDERM SCH (08:58)
[2016-11-08] MEDS: INSULIN LISPRO 100 UNIT/ML SUBCUT SCH ×4 (09:18→21:04)
[2016-11-08] MEDS: INSULIN NPH 100 UNIT/ML SUBCUT SCH ×2 (09:19→17:09)
--- NOTE | 2016-11-08 10:08 | Nephrology Progress Note ---
Nephrology - PN: Subj Interval history: Patient complains of back pain. Review of systems pulmonary she denies shortness of breath Physical exam general the patient is chronically ill-appearing Assessment/plan 1. End-stage renal disease-we will continue hemodialysis support 2. Endocarditis continue IV antibiotics 3. Anemia 4. Diabetes mellitus we will continue her present hypoglycemic regimen 5. Hypertension continue her present antihypertensives 6. Secondary hyperparathyroidism continue her phosphate binder Exam (PN)-Nephrology - Vital Signs Vital signs: Period Temp Pulse Resp BP Sys/Peña Pulse Ox Last 24 Hr 97.3 F-98.3 F 82-94 18-20 93-132/51-62 84-96 - Lab 11/08/16 04:22 11/08/16 04:22 Most recent lab results Calcium 7.9 MG/DL (8.5-10.1) L 11/08/16 04:22 Magnesium 2.3 MG/DL (1.8-2.4) 11/08/16 04:22
--- NOTE | 2016-11-08 11:25 | Hospitalist Progress Note ---
Assessment and Plan (1) MRSA (methicillin resistant Staphylococcus aureus) septicemia Status: Acute Assessment and plan: The patient is admitted the hospital for IV antibiotics. Cultures obtained on 04 November are growing gram-positive cocci. Blood cultures have been ordered again and were taken yesterday. The catheter has been removed. The patient will need 6 weeks of IV antibiotics following her first sterile culture. The patient will likely transfer back to acute care at [facility] once blood cultures have been sterilized. Current Visit: Yes (2) ESRD (end stage renal disease) on dialysis Problem details: Stable for d/c today. F/U outpt HD unit [place]. Status: Chronic Current Visit: No (3) Sepsis Status: Acute Current Visit: Yes (4) Ulnar neuropathy at elbow of left upper extremity Status: Acute Current Visit: Yes Hospitalist: Subjective Interval history: Mrs. Paul is resting quietly in her room today. She has some discomfort in the posterior neck. The patient has no shortness of breath or angina. Exam - Constitutional Vitals: Period Temp Pulse Resp BP Sys/Peña Pulse Ox Last 24 Hr 97.3 F-98.3 F 82-94 18-20 93-132/51-62 84-96 Exam: Constitutional System: Minimal distress. No tremulousness. Sitting up in chair Head: Normocephalic, atraumatic. Ears, Nose and Throat System: No evidence of Otitis or Mastoiditis. No epistaxis or discharge Eyes System: Pupils equal, round, and reactive. Extraocular muscles intact. Neck: Supple, without adenopathy, No jugular venous distention. No thyromegaly , neck mass, or prior surgery apparent. Respiratory System: Chest clear to auscultation. Cardiovascular System: Heart with regular rate and rhythm. No murmur. GI System: Abdomen soft, nontender. Normo active bowel sounds present. Results - Labs CBC & BMP: 11/08/16 04:22 11/08/16 04:22 Lab Results: I have reviewed the past 24 hour labs Quality Measures - VTE Contraindication to Pharmacological VTE Prophylaxis: Coagulopathy
[2016-11-08] MEDS: ENOXAPARIN 30 MG/0.3 ML SYRINGE SUBCUT SCH (17:10)
[2016-11-09] MEDS: CEFTAROLINE 200 MG in SODIUM CHLORIDE 0.9% 50 ML IV SCH ×2 (04:35→17:29)
[2016-11-09] MEDS: INSULIN LISPRO 100 UNIT/ML SUBCUT SCH ×3 (07:54→16:42)
[2016-11-09] MEDS: MELOXICAM 7.5 MG TABLET PO SCH (09:14)
[2016-11-09] MEDS: CALCIUM ACETATE 667 MG CAPSULE PO SCH ×3 (09:15→17:28)
[2016-11-09] MEDS: FLUoxetine 20 MG CAPSULE PO SCH (09:15)
[2016-11-09] MEDS: VALSARTAN 160 MG TABLET PO SCH (09:15)
[2016-11-09] MEDS: CALCITRIOL 0.25 MCG CAPSULE PO SCH (09:15)
[2016-11-09] MEDS: INSULIN NPH 100 UNIT/ML SUBCUT SCH ×2 (09:16→16:42)
[2016-11-09] MEDS ORDERED: LACTULOSE 20 GM/30 ML UDCUP PO PRN (09:18)
[2016-11-09] MEDS ORDERED: SIMETHICONE CHEW 80 MG TABLET PO PRN (09:22)
--- NOTE | 2016-11-09 09:22 | Nephrology Progress Note ---
Nephrology - PN: Subj Interval history: Patient complains of gas buildup after eating. Review of systems pulmonary she denies shortness of breath, GI the patient's nurses requesting a laxative for the patient. Physical exam general patient chronically ill-appearing Assessment/plan 1. End-stage renal disease-we will continue hemodialysis support 2. Endocarditis-patient will continue on antibiotics 3. Diabetes mellitus 4. Hypertension 5. Abdominal bloating-we will give the patient some lactulose and also as needed for simethicone. Exam (PN)-Nephrology - Vital Signs Vital signs: Period Temp Pulse Resp BP Sys/Peña Pulse Ox Last 24 Hr 97 F-99.6 F 79-87 16-20 129-158/66-91 91-100 - Lab 11/08/16 04:22 11/08/16 04:22 Most recent lab results Calcium 7.9 MG/DL (8.5-10.1) L 11/08/16 04:22 Magnesium 2.3 MG/DL (1.8-2.4) 11/08/16 04:22
[2016-11-09] MEDS: LIDOCAINE 5% PATCH TRANSDERM SCH (10:07)
--- NOTE | 2016-11-09 10:48 | Hospitalist Progress Note ---
Assessment and Plan (1) MRSA (methicillin resistant Staphylococcus aureus) septicemia Status: Acute Assessment and plan: The patient is admitted the hospital for IV antibiotics. Cultures obtained on 04 November are growing gram-positive cocci. Blood cultures have been ordered again and were taken on November 06. I am going to order CT scan of neck to evaluate for paraspinous abscess or discitis. The patient will need 6 weeks of IV antibiotics following her first sterile culture. The patient will likely transfer back to acute care at [facility] once blood cultures have been sterilized. Current Visit: Yes (2) ESRD (end stage renal disease) on dialysis Problem details: Stable for d/c today. F/U outpt HD unit [place]. Status: Chronic Current Visit: No (3) Sepsis Status: Acute Current Visit: Yes (4) Ulnar neuropathy at elbow of left upper extremity Status: Acute Current Visit: Yes Hospitalist: Subjective Interval history: Mrs. Paul is admitted to the hospital for treatment of persistent MRSA bacteremia. The patient is now on Teflaro IV antibiotic. Blood cultures obtained on November 06 have not yet returned any evidence of bacteremia. The patient has persistent pain at the base of the neck. I am going to order CAT scan to evaluate for discitis. Exam - Constitutional Vitals: Period Temp Pulse Resp BP Sys/Peña Pulse Ox Last 24 Hr 97 F-99.6 F 79-87 16-20 129-158/66-91 91-100 Exam: Constitutional System: Minimal distress. No tremulousness. Sitting up in chair Head: Normocephalic, atraumatic. Ears, Nose and Throat System: No evidence of Otitis or Mastoiditis. No epistaxis or discharge Eyes System: Pupils equal, round, and reactive. Extraocular muscles intact. Neck: Supple, without adenopathy, No jugular venous distention. No thyromegaly , neck mass, or prior surgery apparent. Respiratory System: Chest clear to auscultation. Cardiovascular System: Heart with regular rate and rhythm. No murmur. GI System: Abdomen soft, nontender. Normo active bowel sounds present. Results - Labs CBC & BMP: 11/08/16 04:22 11/08/16 04:22 Lab Results: I have reviewed the past 24 hour labs Quality Measures - VTE Contraindication to Pharmacological VTE Prophylaxis: Coagulopathy
--- NOTE | 2016-11-09 13:05 | CT Report ---
Exam: CT cervical spine with and without IV contrast Clinical History: 46 years,Female, neck pain and MRSA bacteremia Technique: Axial computed tomography images of the cervical spine without intravenous contrast. The CT exam was performed using one or more of the following dose reduction techniques: Automated exposure control, adjustment of the mA and/or kV according to patient size, or use of iterative reconstruction technique. Comparison: No relevant prior studies available. Findings: Vertebra: Cervical alignment is anatomic. The vertebral body heights are maintained with no evidence of fracture. Disc/spinal Canal/neural foramina: Unremarkable. No central canal or foraminal compromise. Soft tissues: Unremarkable Thyroid: Symmetric in size and attenuation Lung apices: Well aerated No abnormal enhancement Impression: 1. No acute findings PROCEDURE INTERPRETED AT [facility] DEPARTMENT OF RADIOLOGY Final Report Signed by: Christiano Paredes
[2016-11-09] MEDS: ENOXAPARIN 30 MG/0.3 ML SYRINGE SUBCUT SCH (17:29)
[2016-11-10] MEDS: INSULIN LISPRO 100 UNIT/ML SUBCUT SCH ×5 (01:24→20:36)
[2016-11-10 05:12] LABS: Basophils # 0.1 10*3/uL (0.0-0.2); Basophils % 0.4 % (0.0-0.8); Eosinophils # 0.4 10*3/uL (0.0-0.87); Eosinophils % 2.4 % (0.00-10.9); Hematocrit 22.1 VOL% (35.7-47.0); Hemoglobin 7.4 GM/DL (12.0-16.0); Immature Granulocytes % 1.1 %; Immature Granulocytes Absolute 0.19 #; Lymphocytes # 1.7 10*3/uL (1.4-4.0); Lymphocytes % 10.4 % (21.3-54.2); Mean Corpuscular HGB Conc 33.5 GM/DL (32-36); Mean Corpuscular Hemoglobin 31 PG (27-34); Mean Corpuscular Volume 92.5 FL (87-102); Mean Platelet Volume 8.7 FL (9.6-12.0); Monocytes # 1.4 10*3/uL (0.11-0.8); Monocytes % 8.3 % (1.7-12.7); Neutrophils # 12.9 10*3/uL (1.4-7.4); Neutrophils % 77.4 % (38.7-73.9); Platelet Count 318 T/CUMM (130-400); Red Blood Count 2.39 MC/CUMM (3.8-5.5); Red Cell Distribution Width 11.9 % (9.3-17.3); White Blood Count 16.7 T/CUMM (4-12)
[2016-11-10] MEDS: CEFTAROLINE 200 MG in SODIUM CHLORIDE 0.9% 50 ML IV SCH ×2 (05:36→17:52)
[2016-11-10 05:48] LABS: Magnesium 2.4 MG/DL (1.8-2.4); Osmolality,Calculated 273.2 MOS/KG (273-304); Potassium 5.8 MMOL/L (3.5-5.1)
[2016-11-10] MEDS: INSULIN NPH 100 UNIT/ML SUBCUT SCH ×2 (09:16→16:07)
[2016-11-10] MEDS: CALCIUM ACETATE 667 MG CAPSULE PO SCH ×3 (09:17→17:51)
--- NOTE | 2016-11-10 12:33 | Infectious Disease Progress ---
Assessment and Plan (1) Fever Status: Resolved Assessment and plan: resolved. Current Visit: Yes (2) MRSA (methicillin resistant Staphylococcus aureus) septicemia Status: Acute Assessment and plan: Prolonged MRSA bacteremia, with tricuspid valve endocarditis. Patient on daptomycin and ceftaroline. Recommendations: Continue current antibiotics and follow-up results of repeat blood cultures Current Visit: Yes (3) Morbid obesity Status: Acute Current Visit: No (4) Diabetes type 2, uncontrolled Status: Chronic Current Visit: No Qualifiers: Diabetes mellitus complication status: with kidney complications Diabetes mellitus complication detail: with chronic kidney disease Chronic kidney disease stage: on chronic dialysis (5) ESRD (end stage renal disease) on dialysis Problem details: Stable for d/c today. F/U outpt HD unit [facility]. Status: Chronic Current Visit: No (6) Hypertension Status: Chronic Current Visit: No Qualifiers: Hypertension type: renovascular hypertension Qualified Code(s): I15.0 - Renovascular hypertension Infectious Disease - PN: Subj Interval history: Patient doing relatively okay today. Over the weekend she had some worsening of pain to her shoulders and neck so CT C-spine was done but it came back negative. She has not had any fever. Says she is getting around a bit better with her walker. Tolerating antibiotics without nausea vomiting or diarrhea. No muscle soreness. Infectious Disease Exam (PN) - Constitutional Vitals: Temp Pulse Resp BP Pulse Ox 96.2 F L 80 18 149/68 98 11/10/16 08:00 11/10/16 08:00 11/10/16 08:00 11/10/16 08:00 11/10/16 08:00 General appearance: no acute distress Exam: General appearance: Comfortable on dialysis when I saw - Eye Eye exam: Present: EOMI. no icterus Pupils: Present: INDRA - ENT ENT exam: no oral exudates - Respiratory Respiratory exam: vesicular BS, no crepitations or wheezes - Cardiovascular Cardiovascular exam: regular rate and rhythm, no murmurs - GI/Abdominal GI/Abdominal exam: normal bowel sounds, obese, nontender - Extremities Exam Extremities exam: no edema - Skin Skin exam: No rash Results - Labs CBC & BMP: 11/10/16 04:26 11/10/16 04:27 Lab Results: I have reviewed the past 24 hour labs (Repeat blood cultures from the 23rd are negative to date) Quality Measures - VTE Contraindication to Pharmacological VTE Prophylaxis: Coagulopathy
[2016-11-10] MEDS: CALCITRIOL 0.25 MCG CAPSULE PO SCH (12:56)
[2016-11-10] MEDS: VALSARTAN 160 MG TABLET PO SCH (12:56)
[2016-11-10] MEDS: FLUoxetine 20 MG CAPSULE PO SCH (12:56)
[2016-11-10] MEDS: MELOXICAM 7.5 MG TABLET PO SCH (12:56)
[2016-11-10] MEDS: LIDOCAINE 5% PATCH TRANSDERM SCH (12:57)
--- NOTE | 2016-11-10 15:02 | Hospitalist Progress Note ---
Assessment and Plan (1) Endocarditis Status: Acute Current Visit: Yes Qualifiers: Endocarditis type: infective Infective endocarditis organism: bacterial Chronicity: acute Qualified Code(s): I33.0 - Acute and subacute infective endocarditis (2) ESRD (end stage renal disease) on dialysis Status: Chronic Current Visit: No (3) MRSA (methicillin resistant Staphylococcus aureus) septicemia Status: Acute Assessment and plan: Continue daptomycin and Teflaro. Follow-up repeat cultures. See ID notes. Current Visit: Yes Hospitalist: Subjective Interval history: My subjective case discussed with Dr. Manrique. Patient's family member at the bedside. She reports just feeling fatigued after dialysis. Will require prolonged IV antibiotics for MRSA bacteremia and endocarditis involving the tricuspid valve. Repeat blood cultures are pending. Exam - Constitutional Vitals: Period Temp Pulse Resp BP Sys/Peña Pulse Ox Last 24 Hr 96.2 F-98.1 F 76-83 16-20 110-188/49-82 93-98 Exam: Constitutional System: No distress. No tremulousness. Head: Normocephalic, atraumatic. Ears, Nose and Throat System: No pain or tenderness. No epistaxis or discharge Eyes System: Pupils equal, round, and reactive. Extraocular muscles intact. Neck: Supple, without adenopathy, No jugular venous distention. No thyromegaly, neck mass, or prior surgery apparent. Respiratory System: Chest clear to auscultation. Cardiovascular System: Heart with regular rate and rhythm. No murmur. GI System: Abdomen soft, nontender. Normo active bowel sounds present. Musculoskeletal System: limbs with no pedal edema. Full distal pulses. Normal capillary refill. Neurological System: No discernable sensory deficit. No aphasia Psychiatric System: Conversation is rational Results - Labs CBC & BMP: 11/10/16 04:26 11/10/16 04:27 Lab Results: I have reviewed the past 24 hour labs Quality Measures - VTE Contraindication to Pharmacological VTE Prophylaxis: Coagulopathy
[2016-11-10] MEDS: ENOXAPARIN 30 MG/0.3 ML SYRINGE SUBCUT SCH (17:52)
--- NOTE | 2016-11-10 19:56 | Nephrology Progress Note ---
Nephrology - PN: Subj Interval history: 10/25/2016. Patient is resting. she mentions that she is feeling a little bit better today. No shortness of breath or chest pain. She tolerated dialysis on yesterday. 10/26/2016. Patient complains of back pain. She is not getting much relief with [place]. No fevers or chills. Patient did get a gram of vancomycin yesterday. Blood culture was positive in 1 bottle. At this time we will add Flexeril 5 mg twice daily. We will also give a Lidoderm patch. 10/28/2016. The patient tolerated dialysis on yesterday. She is now status post tunnel catheter removal. Afebrile at this time. Has received vancomycin. At this time will reassess to when we will reinsert tunnel catheter. 10/29/2016. The patient has evidence of endocarditis. Continue with antibiotics. At this time patient get an MRI done and we will dialyze today after the test is complete. 11/04/2016. The patient is resting comfortably. No fevers or chills. She has pending blood cultures. At this time continue with antibiotics per infectious disease. Will continue with scheduled hemodialysis for this patient. 11/06/2016. Patient is resting. She does describe some stomach upset. Continue with was scheduled dialysis. Continue with current antibiotic regimen. 11/10/2016. Patient is resting comfortably no acute changes. No fevers or chills. Continue current antibiotic regimen. Exam (PN)-Nephrology - Vital Signs Vital signs: Period Temp Pulse Resp BP Sys/Peña Pulse Ox Last 24 Hr 96.2 F-98.9 F 76-84 16-20 110-188/49-82 93-98 - General Appearance General appearance: well-developed, well-nourished EENT: ATNC Neck: supple Respiratory: clear Cardiology: no edema, regular rate, regular rhythm Gastrointestinal: normoactive bowel sounds, no tenderness Integumentary: no rash Neurologic: alert and oriented x3 Psychiatric: mood/affect appropriate, cooperative - Lab 11/10/16 04:26 11/10/16 04:27 Most recent lab results Calcium 8.0 MG/DL (8.5-10.1) L 11/10/16 04:27 Magnesium 2.4 MG/DL (1.8-2.4) 11/10/16 04:27 Assessment and Plan (1) HTN (hypertension) Status: Chronic Current Visit: Yes Qualifiers: Hypertension type: essential hypertension Qualified Code(s): I10 - Essential (primary) hypertension (2) Diabetes type 2, uncontrolled Status: Chronic Current Visit: No Qualifiers: Diabetes mellitus complication status: with kidney complications Diabetes mellitus complication detail: with chronic kidney disease Chronic kidney disease stage: on chronic dialysis (3) Hypertension Status: Chronic Current Visit: No Qualifiers: Hypertension type: renovascular hypertension Qualified Code(s): I15.0 - Renovascular hypertension (4) ESRD (end stage renal disease) Status: Chronic Assessment and plan: Hemodialysis as scheduled. Current Visit: No (5) Hypokalemia Status: Resolved Current Visit: Yes (6) Back pain Status: Acute Current Visit: Yes
[2016-11-11] MEDS: CEFTAROLINE 200 MG in SODIUM CHLORIDE 0.9% 50 ML IV SCH (04:39)
[2016-11-11] MEDS: INSULIN LISPRO 100 UNIT/ML SUBCUT SCH ×2 (08:08→12:05)
[2016-11-11] MEDS: CALCIUM ACETATE 667 MG CAPSULE PO SCH ×2 (08:09→12:06)
[2016-11-11] MEDS: FLUoxetine 20 MG CAPSULE PO SCH (08:09)
[2016-11-11] MEDS: VALSARTAN 160 MG TABLET PO SCH (08:09)
[2016-11-11] MEDS: CALCITRIOL 0.25 MCG CAPSULE PO SCH (08:09)
[2016-11-11] MEDS: MELOXICAM 7.5 MG TABLET PO SCH (08:09)
[2016-11-11] MEDS: LIDOCAINE 5% PATCH TRANSDERM SCH (08:10)
[2016-11-11] MEDS: INSULIN NPH 100 UNIT/ML SUBCUT SCH (08:10)
--- NOTE | 2016-11-11 10:38 | Discharge Summary ---
Hospital Course - Hospital Course Hospital Course: Mrs Paul was admitted with MRSA sepsis from tricuspid endocarditis and has had a long hospital course. Please see daily notes for details. At this point she has negative blood cultures from 11/08 and will have IV antibiotics until December [address] Manrique's note. She is to take Teflaro for 2 more weeks and Cubicin for ht eentire 6 weeks. She is feeling good and needs some PT and OT to regain strength. She will continue her dialysis schedule. She was referred to [facility] but today when we prepared her for discharge they changed their minds and want her to go to [facility]. She will be discharged there today. - Time spent with patient Time with patient DS: Greater than 30 minutes (medicine reconciliation, documentation, care coordination, discharge planning required 40 minutes.) Diagnosis - Discharge Diagnosis (1) Endocarditis of tricuspid valve Status: Acute (2) Nephrotic syndrome Status: Chronic (3) Hypertension Status: Chronic (4) Pulmonary hypertension Status: Chronic (5) JOSE (obstructive sleep apnea) Status: Chronic (6) ESRD (end stage renal disease) on dialysis Status: Chronic (7) Morbid obesity Status: Chronic (8) Sepsis Status: Resolved (9) MRSA (methicillin resistant Staphylococcus aureus) septicemia Status: Acute Specialty Discharge - Follow Up or Referrals Follow up with: [facility] [Provider Group] - 12/11/16 9:30 am Luisito Bender Jr., MD [Physician] - Discharge Plan - Discharge Data Disposition: Disch/Xfer-[facility] Condition at Discharge: Stable Discharge Diet: diabetic diet, heart healthy Activity: resume usual activities as tolerated - Discharge Medications New Acetaminophen Tab [Tylenol Tab] 650 mg PO Q4H PRN tablet PRN Reason: Fever, Headache, Mild Pain Ceftaroline [Teflaro] 200 mg IV Q12H vial Cyclobenzaprine [Flexeril] 5 mg PO BID PRN tablet PRN Reason: Muscle Pain DAPTOmycin [Cubicin] 900 mg IV Q48H vial Enoxaparin [Lovenox] 30 mg SUBCUT Q24H syringe FLUoxetine [PROzac] 20 mg PO DAILY capsule Glucagon 1 mg IM PRN PRN vial PRN Reason: Hypoglycemia w/o IV access Heparin Inj 2,000 unit IV .FOR DIALYSIS vial Insulin NPH [HumuLIN N] 35 unit SUBCUT AC SUPPER unit Insulin NPH [HumuLIN N] 57 unit SUBCUT AC BREAKFAST unit Lactulose Liquid [Chronulac] 20 gm PO BID PRN PRN Reason: Constipation Meloxicam [Mobic] 15 mg PO DAILY tablet Ondansetron Inj [Zofran Inj] 4 mg IV Q4H PRN vial PRN Reason: Nausea Simethicone Chew Tab [Mylicon Chew Tab] 80 mg PO QID PRN tablet PRN Reason: Gas Valsartan [Diovan] 320 mg PO DAILY tablet Dextrose 50% [D50] 25 gm IV PRN PRN syringe PRN Reason: Hypoglycemia with IV access Insulin Lispro [HumaLOG] See Protocol SUBCUT ACHS unit Lidocaine 5% Patch [Lidoderm 5% Patch] 1 patch TRANSDERM DAILY patch Zinc Oxide Paste [Desitin Paste] 1 applic TOP PRN PRN applic PRN Reason: Diaper Rash - Follow Up or Referral Follow Up: [facility] [Provider Group] - 12/11/16 9:30 am Luisito Bender Jr., MD [Physician] - - Forms/Instructions Instructions: Heart Failure (DC), Renal Failure Diet (DC), Hyponatremia (DC), Hypokalemia (DC), Sepsis (DC), Thrombocytopenia (DC) Additional Discharge Instructions: transfer to [facility] when accepted for 6 weeks of IV antibiotics Exam - Constitutional Vitals: Period Temp Pulse Resp BP Sys/Peña Pulse Ox Last 24 Hr 97.4 F-98.9 F 77-87 16-18 110-152/49-78 90-97 General appearance: no acute distress, morbidly obese - Eye Eye exam: Present: EOMI. Absent: scleral icterus - Respiratory Respiratory exam: Present: clear to auscultation bilaterally - Cardiovascular Cardiovascular exam: Present: regular rate and rhythm - GI/Abdominal GI/Abdominal exam: Present: normal bowel sounds, soft. Absent: tenderness - Extremities Exam Extremities exam: Absent: edema Discharge Results Procedures and tests throughout hospitalization: Pending Orders 10/27/16 18:00 Catheter Tip Culture Routine 11/08/16 04:22 Blood Culture IN AM Labs on day of discharge: Labs from last 24 hours 11/11/16 11/10/16 11/10/16 07:16 18:41 15:34 POC Glucose 182 H 255 H 208 H 11/10/16 11:39 POC Glucose 143 H Preliminary micro results at discharge 11/08/16 04:22 Blood Culture - Preliminary Blood No growth at 3 days 11/08/16 04:22 Blood Culture - Preliminary Blood No growth at 3 days DS: Provider Date of admission: 10/23/16 23:11 Primary care physician: Juan Moore MD Attending physician on admission: Darwin Pierre MD Consults: 10/23/16 23:11 Consult to Physician [CONS] Routine Comment: ESRD, dialysis Consulting Provider: Luisito Bender Jr. Consult to Specialist Group: Nephrology Person Notified: Zena Date Notified: 10/24/16 Time Notified: 08:00 10/23/16 23:23 Consult to Pharmacy [CONS] Routine Reason for Pharmacy Consult: Dose/Manage Antibiotics Adjust Meds Renal Funct 10/27/16 10:24 Consult to Physician [CONS] Routine Comment: sepsis, mrsa blood cultures Consulting Provider: Alana Manrique Person Notified: Betsy Date Notified: 10/27/16 Time Notified: 10:30 10/27/16 10:38 Consult to Pharmacy [CONS] Routine Reason for Pharmacy Consult: Dose/Manage Vancomycin 10/27/16 11:11 Consult to Physician [CONS] Routine Comment: infected dialysis cath remove and wait two days Consulting Provider: Sunday Capone When should Consulting Provider be notified: Lisa Person Notified: Hortensia Date Notified: 10/27/16 Time Notified: 11:35 10/27/16 13:44 Consult to Pharmacy [CONS] Routine Reason for Pharmacy Consult: Dose/Manage Vancomycin Comment: Goal vancomycin trough level 20-25 10/27/16 16:48 Consult to Sleep Center [CONS] Routine Reason for Sleep Center: Sleep Center Physician 10/28/16 13:18 Consult to Case Mgmt/Social Srvs [CONS] Routine Reason for Case Mgmt/Social Srvs: Other Consult Comment: see message to caregiver 10/28/16 13:22 Consult to Physical Therapy [CONS] Routine Reason for Physical Therapy: Weakness 10/28/16 15:54 Consult to Physician [CONS] Routine Comment: right sided endocarditis Consulting Provider: Jose Dias Person Notified: Lilliana Date Notified: 10/29/16 Time Notified: 08:40 10/30/16 11:05 Consult to Case Mgmt/Social Srvs [CONS] Routine Reason for Case Mgmt/Social Srvs: Other Consult Comment: [facility] Consult to Occupational Therapy [CONS] Routine Reason for Occupational Therapy: Evaluate and Treat Consult to Physical Therapy [CONS] Routine Reason for Physical Therapy: Evaluate and Treat 11/02/16 10:45 Consult to Physician [CONS] Routine Comment: left hand ulnar neuropathy severe Consulting Provider: Jose Sousa When should Consulting Provider be notified: Now Person Notified: DR. SOUSA Date Notified: 11/02/16 Time Notified: 10:57 Discharging clinician: Julia Beckman MD
--- NOTE | 2016-11-11 14:01 | Infectious Disease Progress ---
Assessment and Plan (1) Fever Status: Resolved Assessment and plan: resolved. Current Visit: Yes (2) MRSA (methicillin resistant Staphylococcus aureus) septicemia Status: Acute Assessment and plan: Prolonged MRSA bacteremia, with tricuspid valve endocarditis. Patient on daptomycin and ceftaroline and it seems like blood cultures from the may finally be negative. Recommendations: Continue current antibiotics and follow-up results of repeat blood cultures. If the culture still negative then patient will continue antibiotic therapy until December 20. I would give the ceftriaxone for 2 weeks and continue daptomycin for the entire 6 week. CPK to be monitored weekly on the daptomycin. Will check a level today. Current Visit: Yes (3) Morbid obesity Status: Acute Current Visit: No (4) Diabetes type 2, uncontrolled Status: Chronic Current Visit: No Qualifiers: Diabetes mellitus complication status: with kidney complications Diabetes mellitus complication detail: with chronic kidney disease Chronic kidney disease stage: on chronic dialysis (5) ESRD (end stage renal disease) on dialysis Status: Chronic Assessment and plan: Fortunately AV fistula is maturing she will not need a new catheter. Current Visit: No (6) Hypertension Status: Chronic Current Visit: No Qualifiers: Hypertension type: renovascular hypertension Qualified Code(s): I15.0 - Renovascular hypertension Infectious Disease - PN: Subj Interval history: Patient feeling generally better today, she was met sitting in chair this morning. Has not had fever. No nausea vomiting or diarrhea. Pain to shoulders and neck improved. Infectious Disease Exam (PN) - Constitutional Vitals: Temp Pulse Resp BP Pulse Ox 98.2 F 81 18 119/57 98 11/11/16 11:16 11/11/16 11:16 11/11/16 11:16 11/11/16 11:16 11/11/16 11:16 General appearance: no acute distress Exam: General appearance: Comfortable in chair - Eye Eye exam: Present: EOMI. no icterus Pupils: Present: INDRA - ENT ENT exam: no oral exudates - Respiratory Respiratory exam: vesicular BS, no crepitations or wheezes - Cardiovascular Cardiovascular exam: regular rate and rhythm, no murmurs - GI/Abdominal GI/Abdominal exam: normal bowel sounds, obese, nontender - Extremities Exam Extremities exam: no edema - Skin Skin exam: No rash Results - Labs CBC & BMP: 11/10/16 04:26 11/10/16 04:27 Lab Results: I have reviewed the past 24 hour labs (Repeat blood cultures negative at day 3) Quality Measures - VTE Contraindication to Pharmacological VTE Prophylaxis: Coagulopathy Specialty Discharge - Follow Up or Referrals Follow up with: [facility] [Provider Group] Luisito Bender Jr., MD [Physician] -
[2016-11-11 15:40] VITALS: BP 159/65
--- NOTE | 2016-11-12 16:20 | Physician Query Form ---
CLICK EDIT DOCUMENT TO SELECT QUERY ANSWER --> OK --> SIGN Grace Unger RN Clinical Solar Sales Advisor W) [phone] (f) [phone] [email or web address] PROVIDERS: Make your selection(s) from the choices in EACH section by typing an "x" and enter comments in the comment section. Please use your independent medical judgment in providing your response. This request does not imply that any particular answer is desired or expected. CLINICAL INDICATORS: (Providers should not edit this section) The below diagnosis was documented in the record, but is not consistently noted in subsequent documentation. Diagnosis: Acute rhabdomyolysis Based on documentation of "Muscle pain with elevated CK. I suspect she has rhabdomyolysis". Total Creatine Dseigg=[id number] on admission and came down to 17. Please clarify the following: ( ) The above diagnosis was monitored, evaluated, and/or treated and is a confirmed diagnosis ( X) The above diagnosis was ruled out ( ) Other, please specify: ( ) Clinically unable to determine COMMENTS: PLEASE ALSO DOCUMENT RESPONSE IN PROGRESS NOTES AND/OR DISCHARGE SUMMARY Use of terms such as suspected, likely, or probable (associated with a specific diagnosis that is being evaluated, monitored, or treated as if it exists) are acceptable and can be restated in the discharge summary if not ruled out. MTDD
== END 2016-11-11 17:17 | DRG 871 ==
LOC: EDUNIT# → EDBD → N.ED 21:04 → N.EDINP 23:11 → SUATTDRO 23:11 → N.TELEN 23:53 → N.5E 11-11 00:08
PROVIDERS: ADMIT Family Medicine; ATTEND Internal Medicine

== ENCOUNTER 2017-01-23 00:16 | Inpatient (IN) ==
[2017-01-23] MEDS ORDERED: LIDOCAINE 1% 20 ML VIAL INFILTRAT STA (02:31)
[2017-01-23 06:27] LABS: Lymphocytes,Synovial Fluid 3 %; Neutrophils,Synovial Fluid 94 %
[2017-01-23] MEDS ORDERED: ACETAMINOPHEN 325 MG TABLET PO PRN (07:53)
[2017-01-23] MEDS ORDERED: ONDANSETRON 4 MG/2 ML VIAL IV PRN ×2 (07:53→12:13)
[2017-01-23 07:56] LABS: Basophils % 0.5 % (0.0-0.8); Eosinophils # 0.2 10*3/uL (0.0-0.87); Eosinophils % 4.2 % (0.00-10.9); Immature Granulocytes % 0.2 %; Immature Granulocytes Absolute 0.01 #; Lymphocytes # 1.3 10*3/uL (1.4-4.0); Lymphocytes % 22.7 % (21.3-54.2); Mean Corpuscular HGB Conc 31.3 GM/DL (32-36); Mean Corpuscular Hemoglobin 28 PG (27-34); Mean Corpuscular Volume 89.6 FL (87-102); Mean Platelet Volume 8.6 FL (9.6-12.0); Monocytes # 0.6 10*3/uL (0.11-0.8); Monocytes % 10.6 % (1.7-12.7); Neutrophils # 3.5 10*3/uL (1.4-7.4); Neutrophils % 61.8 % (38.7-73.9); Platelet Count 266 T/CUMM (130-400); Red Blood Count 3.57 MC/CUMM (3.8-5.5); Red Cell Distribution Width 13.5 % (9.3-17.3); White Blood Count 5.7 T/CUMM (4-12)
[2017-01-23 08:34] LABS: Osmolality,Calculated 280.3 MOS/KG (273-304)
[2017-01-23] MEDS ORDERED: POTASSIUM CHLORIDE 20 MEQ TABLET PO PRN (08:55)
[2017-01-23 09:32] LABS: Cholesterol Crystals None Seen /LPF
[2017-01-23] MEDS ORDERED: VANCOMYCIN 1,000 MG VIAL ONE (10:46)
[2017-01-23] MEDS ORDERED: PIPERACILLIN/TAZOBACTAM 3,375 MG VIAL IV ONE (10:54)
[2017-01-23] MEDS ORDERED: PIPERACILLIN/TAZOBACTAM 3,375 MG in SODIUM CHLORIDE 0.9% 100 ML IV SCH (11:00)
[2017-01-23] MEDS ORDERED: VANCOMYCIN INJ 1,000 MG in SODIUM CHLORIDE 0.9% 250 ML IV SCH (11:00)
[2017-01-23] MEDS ORDERED: PROPOFOL 200 MG/20 ML VIAL IV ONE (11:42)
[2017-01-23] MEDS ORDERED: fentaNYL 100 MCG/2 ML VIAL ONE (11:43)
[2017-01-23] MEDS ORDERED: MIDAZOLAM 2 MG/2 ML VIAL ONE (11:43)
[2017-01-23] MEDS ORDERED: DEXAMETHASONE 10 MG/1 ML VIAL ONE (11:43)
[2017-01-23] MEDS ORDERED: KETOROLAC 30 MG/1 ML VIAL ONE (11:44)
[2017-01-23] MEDS ORDERED: SEVOFLURANE 1 UNIT/15 MINUTE INH ONE (11:44)
[2017-01-23] MEDS ORDERED: ONDANSETRON 4 MG/2 ML VIAL ONE (11:44)
[2017-01-23] MEDS ORDERED: SODIUM CHLORIDE 0.9% 1,000 ML IV ONE (11:45)
[2017-01-23] MEDS ORDERED: HYDROmorphone 2 MG/1 ML VIAL IV PRN (12:13)
[2017-01-23] MEDS ORDERED: BISACODYL 5 MG TABLET PO PRN (13:36)
[2017-01-23] MEDS ORDERED: MAGNESIUM HYDROXIDE SUSP 30 ML UDCUP PO PRN (13:36)
[2017-01-23] MEDS ORDERED: MELOXICAM 7.5 MG TABLET PO PRN (13:36)
[2017-01-23] MEDS ORDERED: CYCLOBENZAPRINE 10 MG TABLET PO PRN (13:36)
[2017-01-23] MEDS ORDERED: SIMETHICONE CHEW 80 MG TABLET PO PRN (13:36)
[2017-01-23] MEDS ORDERED: VANCOMYCIN INJ 1,000 MG in SODIUM CHLORIDE 0.9% 250 ML IV ONE (18:00)
[2017-01-23] MEDS: MULTIVITAMIN (BEROCCA) TABLET PO SCH (21:01)
[2017-01-23] MEDS: LOSARTAN 50 MG TABLET PO SCH (21:01)
[2017-01-23] MEDS: FLUoxetine 20 MG CAPSULE PO SCH (21:01)
[2017-01-23] MEDS: PIPERACILLIN/TAZOBACTAM 2,250 MG in SODIUM CHLORIDE 0.9% 100 ML IV SCH (21:01)
[2017-01-24] MEDS: PIPERACILLIN/TAZOBACTAM 2,250 MG in SODIUM CHLORIDE 0.9% 100 ML IV SCH ×2 (05:02→14:30)
[2017-01-24 06:49] LABS: Basophils % 0.4 % (0.0-0.8); Eosinophils # 0.1 10*3/uL (0.0-0.87); Eosinophils % 1.1 % (0.00-10.9); Hematocrit 27.7 VOL% (35.7-47.0); Hemoglobin 8.2 GM/DL (12.0-16.0); Immature Granulocytes % 0.4 %; Immature Granulocytes Absolute 0.02 #; Lymphocytes # 1.1 10*3/uL (1.4-4.0); Lymphocytes % 19.9 % (21.3-54.2); Mean Corpuscular HGB Conc 29.6 GM/DL (32-36); Mean Corpuscular Hemoglobin 27 PG (27-34); Mean Corpuscular Volume 91.1 FL (87-102); Mean Platelet Volume 8.9 FL (9.6-12.0); Monocytes # 0.6 10*3/uL (0.11-0.8); Monocytes % 10.2 % (1.7-12.7); Neutrophils # 3.7 10*3/uL (1.4-7.4); Platelet Count 249 T/CUMM (130-400); Red Blood Count 3.04 MC/CUMM (3.8-5.5); Red Cell Distribution Width 13.5 % (9.3-17.3); White Blood Count 5.4 T/CUMM (4-12)
[2017-01-24 07:37] LABS: Calcium 6.2 MG/DL (8.5-10.1); Potassium 2.9 MMOL/L (3.5-5.1); Thyroid Stimulating Hormone 0.699 uIU/ml (0.358-3.74)
[2017-01-24] MEDS ORDERED: EPOETIN ALFA 2,000 UNIT/1 ML VIAL IV PRN (10:35)
[2017-01-24] MEDS: LIDOCAINE/PRILOCAINE CREAM 5 GM TUBE TOP SCH (14:35)
[2017-01-24] MEDS ORDERED: DEXTROSE 50% 25 GM/50 ML VIAL IV PRN (14:59)
[2017-01-24] MEDS ORDERED: GLUCAGON 1 MG VIAL IM PRN (14:59)
[2017-01-24] MEDS: POTASSIUM CHLORIDE 20 MEQ TABLET PO SCH (15:59)
[2017-01-24] MEDS ORDERED: VANCOMYCIN INJ 750 MG in SODIUM CHLORIDE 0.9% 150 ML IV PRN (18:00)
[2017-01-24] MEDS: MULTIVITAMIN (BEROCCA) TABLET PO SCH (20:14)
[2017-01-24] MEDS: FLUoxetine 20 MG CAPSULE PO SCH (20:14)
[2017-01-24] MEDS: LOSARTAN 50 MG TABLET PO SCH (20:14)
[2017-01-24] MEDS ORDERED: VANCOMYCIN INJ 750 MG in SODIUM CHLORIDE 0.9% 150 ML IV ONE (21:00)
[2017-01-25] MEDS: PIPERACILLIN/TAZOBACTAM 2,250 MG in SODIUM CHLORIDE 0.9% 100 ML IV SCH ×2 (02:49→13:43)
[2017-01-25 03:04] LABS: Osmolality,Calculated 281.8 MOS/KG (273-304); Potassium 3.8 MMOL/L (3.5-5.1)
[2017-01-25 03:54] LABS: Basophils % 0.4 % (0.0-0.8); Eosinophils # 0.3 10*3/uL (0.0-0.87); Eosinophils % 3.9 % (0.00-10.9); Hematocrit 30.5 VOL% (35.7-47.0); Hemoglobin 9.1 GM/DL (12.0-16.0); Immature Granulocytes % 0.6 %; Immature Granulocytes Absolute 0.04 #; Lymphocytes # 1.3 10*3/uL (1.4-4.0); Lymphocytes % 19.2 % (21.3-54.2); Mean Corpuscular HGB Conc 29.8 GM/DL (32-36); Mean Corpuscular Hemoglobin 27 PG (27-34); Mean Corpuscular Volume 91.3 FL (87-102); Monocytes # 0.6 10*3/uL (0.11-0.8); Neutrophils # 4.6 10*3/uL (1.4-7.4); Neutrophils % 66.9 % (38.7-73.9); Platelet Count 310 T/CUMM (130-400); Red Blood Count 3.34 MC/CUMM (3.8-5.5); Red Cell Distribution Width 13.7 % (9.3-17.3); White Blood Count 6.9 T/CUMM (4-12)
[2017-01-25 07:58] LABS: Eosinophils 3 % (0-10); Hypochromasia 2+; Lymphocytes 18 % (20-55); Macrocytosis 1+; Platelet Estimate Adequate; Segmented Neutrophils 74 % (50-85); Total Cells Counted 100
[2017-01-25] MEDS: POTASSIUM CHLORIDE 20 MEQ TABLET PO SCH (08:08)
[2017-01-25] MEDS ORDERED: GLUCAGON 1 MG VIAL IM PRN ×2 (09:53→12:09)
[2017-01-25] MEDS ORDERED: DEXTROSE 50% 25 GM/50 ML VIAL IV PRN ×2 (09:53→12:09)
[2017-01-25] MEDS: INSULIN LISPRO 100 UNIT/ML SUBCUT SCH ×2 (16:48→21:37)
[2017-01-25] MEDS: FLUoxetine 20 MG CAPSULE PO SCH (21:38)
[2017-01-25] MEDS: MULTIVITAMIN (BEROCCA) TABLET PO SCH (21:38)
[2017-01-25] MEDS: LOSARTAN 50 MG TABLET PO SCH (21:38)
[2017-01-26] MEDS: PIPERACILLIN/TAZOBACTAM 2,250 MG in SODIUM CHLORIDE 0.9% 100 ML IV SCH ×2 (02:51→15:36)
[2017-01-26 05:01] LABS: Basophils % 0.5 % (0.0-0.8); Eosinophils # 0.2 10*3/uL (0.0-0.87); Eosinophils % 5.2 % (0.00-10.9); Immature Granulocytes % 0.5 %; Immature Granulocytes Absolute 0.02 #; Lymphocytes % 23.3 % (21.3-54.2); Mean Corpuscular Hemoglobin 28 PG (27-34); Mean Corpuscular Volume 91.7 FL (87-102); Mean Platelet Volume 8.9 FL (9.6-12.0); Monocytes # 0.6 10*3/uL (0.11-0.8); Monocytes % 14.9 % (1.7-12.7); Neutrophils # 2.4 10*3/uL (1.4-7.4); Neutrophils % 55.6 % (38.7-73.9); Platelet Count 274 T/CUMM (130-400); Red Blood Count 3.27 MC/CUMM (3.8-5.5); Red Cell Distribution Width 13.7 % (9.3-17.3); White Blood Count 4.2 T/CUMM (4-12)
[2017-01-26 05:44] LABS: Calcium 6.9 MG/DL (8.5-10.1); Osmolality,Calculated 279.5 MOS/KG (273-304); Potassium 4.2 MMOL/L (3.5-5.1)
[2017-01-26] MEDS: INSULIN LISPRO 100 UNIT/ML SUBCUT SCH ×4 (08:50→22:10)
[2017-01-26] MEDS: LIDOCAINE/PRILOCAINE CREAM 5 GM TUBE TOP SCH (09:00)
[2017-01-26] MEDS: POTASSIUM CHLORIDE 20 MEQ TABLET PO SCH (09:34)
[2017-01-26] MEDS: amLODIPine 5 MG TABLET PO SCH (11:07)
[2017-01-26] MEDS: COLLAGENASE OINT 30 GM TUBE TOP SCH (14:55)
[2017-01-26] MEDS: LINEZOLID 600 MG TABLET PO SCH ×2 (15:10→22:10)
[2017-01-26] MEDS: LOSARTAN 50 MG TABLET PO SCH (22:11)
[2017-01-26] MEDS: MULTIVITAMIN (BEROCCA) TABLET PO SCH (22:11)
[2017-01-27] MEDS: INSULIN LISPRO 100 UNIT/ML SUBCUT SCH ×3 (07:30→17:20)
[2017-01-27] MEDS: COLLAGENASE OINT 30 GM TUBE TOP SCH (08:54)
[2017-01-27] MEDS: LINEZOLID 600 MG TABLET PO SCH (09:00)
[2017-01-27] MEDS: POTASSIUM CHLORIDE 20 MEQ TABLET PO SCH (15:47)
[2017-01-27] MEDS: amLODIPine 5 MG TABLET PO SCH (15:48)
[2017-01-27 16:15] VITALS: BP 143/70
== END 2017-01-27 18:30 | disposition home or self-care (01) | DRG 463 ==
LOC: EDUNIT# → EDBD → N.ED 00:16 → N.EDINP 07:36 → SUATTDRO 07:36 → N.3E 09:45
PROVIDERS: ADMIT Pediatrics

== ENCOUNTER 2021-01-14 18:43 | Inpatient (IN) ==
[2021-01-14 23:29] LABS: Basophils % 0.3 % (0.0-0.8); Eosinophils # 0.3 10*3/uL (0.0-0.87); Eosinophils % 4.5 % (0.00-10.9); Hematocrit 20.9 VOL% (35.7-47.0); Hemoglobin 6.5 GM/DL (12.0-16.0); Immature Granulocytes % 0.3 %; Immature Granulocytes Absolute 0.02 #; Lymphocytes # 1.3 10*3/uL (1.4-4.0); Lymphocytes % 18.4 % (21.3-54.2); Mean Corpuscular HGB Conc 31.1 GM/DL (32-36); Mean Corpuscular Volume 103.5 FL (87-102); Monocytes % 9.1 % (1.7-12.7); Neutrophils % 67.4 % (38.7-73.9); Platelet Count 188 T/CUMM (130-400); Red Blood Count 2.02 MC/CUMM (3.8-5.5); Red Cell Distribution Width 13.1 % (9.3-17.3); White Blood Count 7.1 T/CUMM (4-12)
[2021-01-14] MEDS ORDERED: SODIUM CHLORIDE 0.9% 1,000 ML IV PRN (23:36)
[2021-01-14] MEDS ORDERED: SIMETHICONE CHEW 125 MG TABLET PO PRN (23:39)
[2021-01-14] MEDS ORDERED: ACETAMINOPHEN 325 MG TABLET PO PRN (23:39)
[2021-01-14] MEDS ORDERED: ONDANSETRON 4 MG/2 ML VIAL IV PRN (23:39)
[2021-01-14] MEDS ORDERED: GLUCAGON 1 MG VIAL IM PRN (23:39)
[2021-01-14] MEDS ORDERED: DEXTROSE 50% 25 GM/50 ML SYRINGE IV PRN (23:43)
[2021-01-14 23:51] LABS: Albumin 2.9 G/DL (3.4-5.0); Bilirubin,Total 0.4 MG/DL (0.20-1.00); Calcium 6.2 MG/DL (8.5-10.1); Osmolality,Calculated 310.4 MOS/KG (273-304); Total Protein 7.1 G/DL (6.4-8.2)
[2021-01-14 23:58] LABS: Potassium 6.2 MMOL/L (3.5-5.1)
[2021-01-15 00:26] LABS: PT Patient Result 10.9 SECS (10.5-12.0); Partial Thromboplastin Time 24.8 SECS (23.8-32.1)
[2021-01-15] MEDS ORDERED: INSULIN REGULAR 10 UNIT, CALCIUM GLUCONATE 1,000 MG in DEXTROSE 10% 250 ML IV ONE (02:00)
[2021-01-15 04:41] LABS: Basophils % 0.3 % (0.0-0.8); Eosinophils # 0.3 10*3/uL (0.0-0.87); Eosinophils % 4.7 % (0.00-10.9); Hematocrit 22.6 VOL% (35.7-47.0); Hemoglobin 6.9 GM/DL (12.0-16.0); Immature Granulocytes % 0.4 %; Immature Granulocytes Absolute 0.03 #; Lymphocytes # 1.6 10*3/uL (1.4-4.0); Lymphocytes % 23.1 % (21.3-54.2); Mean Corpuscular HGB Conc 30.5 GM/DL (32-36); Mean Corpuscular Volume 102.7 FL (87-102); Mean Platelet Volume 9.2 FL (9.6-12.0); Monocytes % 4.3 % (1.7-12.7); Neutrophils % 67.2 % (38.7-73.9); Platelet Count 158 T/CUMM (130-400); Red Cell Distribution Width 13.6 % (9.3-17.3); White Blood Count 6.8 T/CUMM (4-12)
[2021-01-15 05:08] LABS: Calcium 6.3 MG/DL (8.5-10.1); Osmolality,Calculated 312.4 MOS/KG (273-304); Potassium 5.6 MMOL/L (3.5-5.1); Risk Ratio 3.26; Thyroid Stimulating Hormone 5.62 uIU/ml (0.358-3.74); VLDL Cholesterol 18.4 MG/DL
[2021-01-15 05:09] LABS: % Iron Saturation 100.7 % (18-50); Ferritin 1184.3 ng/mL (8-252)
[2021-01-15 05:11] LABS: Folate 6.06 NG/ML (5.38-24.0); Vitamin B12 378 PG/ML (211-911)
[2021-01-15] MEDS ORDERED: hydrALAZINE 20 MG/1 ML VIAL IV PRN (05:16)
[2021-01-15 06:56] LABS: Sedimentation Rate-Westergren 140 MM/HR (0-20)
[2021-01-15] MEDS ORDERED: SODIUM CHLORIDE 0.9% 1,000 ML IV PRN (08:16)
[2021-01-15] MEDS ORDERED: SODIUM POLYSTYRENE SULFATE 15 GM/60 ML BOTTLE PO STA ×3 (08:19→16:29)
[2021-01-15] MEDS: PANTOPRAZOLE 40 MG VIAL IV SCH (08:48)
[2021-01-15 08:52] LABS: Free T4 (Free Thyroxine) 0.87 NG/DL (0.76-1.46)
[2021-01-15] MEDS: DOCUSATE SODIUM 100 MG CAPSULE PO SCH ×2 (10:10→21:11)
[2021-01-15] MEDS: amLODIPine 10 MG TABLET PO SCH (10:12)
[2021-01-15] MEDS: INSULIN REGULAR 100 UNIT/ML SUBCUT SCH ×4 (10:48→22:29)
[2021-01-15 12:12] LABS: Hemoglobin 8.4 GM/DL (12.0-16.0)
[2021-01-15] MEDS ORDERED: EPOETIN ALFA-EPBX 10,000 UNIT/ML VIAL SUBCUT ONE ×2 (13:55→15:30)
[2021-01-15] MEDS ORDERED: GLUCAGON 1 MG VIAL IM PRN (14:42)
[2021-01-15] MEDS ORDERED: DEXTROSE 50% 25 GM/50 ML SYRINGE IV PRN (14:47)
[2021-01-16] MEDS: INSULIN REGULAR 100 UNIT/ML SUBCUT SCH ×2 (07:30→11:10)
[2021-01-16 08:26] LABS: Hemoglobin A1 (Alkaline) 97.6 % (96.5-98.5); Hemoglobin A2 (Alkaline) 2.4 % (1.5-3.5)
[2021-01-16] MEDS ORDERED: BISACODYL 5 MG TABLET PO ONE (08:27)
[2021-01-16] MEDS: PANTOPRAZOLE 40 MG VIAL IV SCH (09:07)
[2021-01-16] MEDS: DOCUSATE SODIUM 100 MG CAPSULE PO SCH (09:07)
[2021-01-16] MEDS: amLODIPine 10 MG TABLET PO SCH (09:07)
[2021-01-16 09:43] LABS: Basophils % 0.3 % (0.0-0.8); Eosinophils # 0.2 10*3/uL (0.0-0.87); Eosinophils % 3.7 % (0.00-10.9); Hematocrit 26.2 VOL% (35.7-47.0); Hemoglobin 8.5 GM/DL (12.0-16.0); Immature Granulocytes % 0.2 %; Immature Granulocytes Absolute 0.01 #; Lymphocytes # 0.9 10*3/uL (1.4-4.0); Lymphocytes % 14.1 % (21.3-54.2); Mean Corpuscular HGB Conc 32.4 GM/DL (32-36); Mean Corpuscular Volume 98.1 FL (87-102); Mean Platelet Volume 9.3 FL (9.6-12.0); Monocytes % 8.9 % (1.7-12.7); Neutrophils % 72.8 % (38.7-73.9); Platelet Count 182 T/CUMM (130-400); Red Blood Count 2.67 MC/CUMM (3.8-5.5); Red Cell Distribution Width 13.8 % (9.3-17.3); White Blood Count 6.3 T/CUMM (4-12)
[2021-01-16 10:03] LABS: Calcium 6.6 MG/DL (8.5-10.1); Osmolality,Calculated 305.5 MOS/KG (273-304)
[2021-01-16 15:40] VITALS: BP 162/63
== END 2021-01-16 16:30 | disposition home or self-care (01) | DRG 291 ==
LOC: N.ED 18:43 → N.EDINP 01-15 04:17 → N.3E 01-15 05:00
PROVIDERS: ADMIT Internal Medicine; ATTEND Internal Medicine